=== PATIENT | female | born 1945 | race Hispanic/Latino ===

== ENCOUNTER 2018-07-14 08:10 | Emergency (ER) | payer SELFPAY ==
[2018-07-14 08:48] LABS: Absolute Lymphocytes (CBC) 1.8 K/uL (0.7-4.9); Absolute Monocytes 0.7 K/uL (0.1-1.3); Absolute Neutrophil 3.6 K/uL (1.8-8.0); Basophils % 0.5 % (0-1.3); Eosinophils % 1.1 % (0-4.4); Hematocrit 39.1 % (36.0-45.0); Lymphocytes % 29.3 % (15.3-44.8); MCH 30.6 pg (27.0-35.0); MCV 85.8 fL (80-100); MPV 8.4 fL (7.6-11.3); RBC Red Blood Cell Count 4.56 M/uL (3.86-4.86)
[2018-07-14 08:52] LABS: Protime INR 1.09
--- NOTE | 2018-07-14 08:59 | RAD REPORT ---
EXAM DESCRIPTION: CT - Head Brain Wo Cont - 07/14/2018 8:44 am CLINICAL HISTORY: Left facial droop and numbness COMPARISON: None. TECHNIQUE: Computed axial tomography of the head was obtained. IV contrast was not requested. All CT scans are performed using dose optimization technique as appropriate and may include automated exposure control or mA/KV adjustment according to patient size. FINDINGS: An intracranial bleed is not seen . The ventricles are normal in caliber. No extra-axial fluid collection is noted. Fluid within the sinuses/ mastoids is not seen. IMPRESSION: No acute intracranial abnormality is seen. If patient's symptoms persist MRI of the bra in would be recommended.
[2018-07-14 09:07] LABS: ALT/SGPT 29 U/L (12-78); AST/SGOT 18 U/L (15-37); Albumin 3.8 g/dL (3.4-5.0); Alkaline Phosphatase 67 U/L (45-117); BUN Blood Urea Nitrogen 12 mg/dL (7-18); Bicarbonate 23 mmol/L (21-32); Bilirubin Direct 0.1 mg/dL (0-0.2); Bilirubin Total 0.6 mg/dL (0.2-1.0); Glucose Level 97 mg/dL (74-106); Magnesium 2.3 mg/dL (1.8-2.4); NT PRO-BNP 47 pg/mL (<125); Potassium 3.6 mmol/L (3.5-5.1); Protein, Total 7.5 g/dL (6.4-8.2); Sodium Level 142 mmol/L (136-145); Troponin (Emerg Dept Use Only) < 0.02 ng/mL (0.0-0.045)
[2018-07-14] MEDS ORDERED: LORazepam 2 MG/ML VIAL ONE (09:21)
--- NOTE | 2018-07-14 10:02 | RAD REPORT ---
EXAM DESCRIPTION: Valentín Single View07/14/2018 8:54 am CLINICAL HISTORY: Chest pain COMPARISON: December 2016 FINDINGS: The lungs appear clear of acute infiltrate. The heart is normal size IMPRESSION: No acute abnormalities displayed
--- NOTE | 2018-07-14 11:14 | ER ---
Nurse's Notes [facility] Name: Celina Justice Age: 72 yrs Sex: Female : 1945 Arrival Date: 07/14/2018 Time: 08:11 Bed 6 Private MD: Diagnosis: Chest pain, unspecified Presentation: 07/14 08:12 Presenting complaint: Patient states: L sided chest pain that radiates down L arm that ss began 2 hours ago. Pt also c/o numbness to 2 fingers to L shoulder. Reports intermittent facial drooping x 2-3 months that is not present at this time. Transition of care: patient was not received from another setting of care. Onset of symptoms was July 14, 2018. Risk Assessment: Do you want to hurt yourself or someone else? Patient reports no desire to harm self or others. Initial Sepsis Screen: Does the patient meet any 2 criteria? No. Patient's initial sepsis screen is negative. Does the patient have a suspected source of infection? No. Patient's initial sepsis screen is negative. Care prior to arrival: Pt reports taking Aspirin last night and this morning, unknown dose. 08:12 Method Of Arrival: Ambulatory ss 08:12 Acuity: MARGY 3 ss Triage Assessment: 08:15 General: Appears in no apparent distress. comfortable, Behavior is cooperative, bp appropriate for age, anxious. Historical: - Allergies: 08:32 No Known Allergies; bp - Home Meds: 08:32 Unable to obtain [Active]; bp - PMHx: 08:32 Hyperlipidemia; Hypothyroidism; bp - Immunization history:: Adult Immunizations up to date. - Social history:: Smoking status: Patient/guardian denies using tobacco. - Ebola Screening: : Patient denies exposure to infectious person Patient denies travel to an Ebola-affected area in the 21 days before illness onset. Screenin:32 Abuse screen: Denies threats or abuse. Denies injuries from another. Nutritional bp screening: No deficits noted. Tuberculosis screening: No symptoms or risk factors identified. Fall Risk None identified. Assessment: 08:29 General: Appears in no apparent distress. comfortable, Behavior is cooperative, bp appropriate for age, anxious. Pain: Complains of pain in chest and left arm. Neuro: Level of Consciousness is awake, alert, obeys commands, Oriented to person, place, time, situation, Appropriate for age. Cardiovascular: Rhythm is sinus rhythm. Respiratory: Airway is patent Respiratory effort is even, unlabored, Respiratory pattern is regular, symmetrical. GI: Reports nausea. : No signs and/or symptoms were reported regarding the genitourinary system. EENT: No deficits noted. Derm: No deficits noted. Musculoskeletal: Circulation, motion, and sensation intact. Range of motion: intact in all extremities. 09:30 Reassessment: Patient appears in no apparent distress at this time. Patient and/or hb family updated on plan of care and expected duration. Pain level reassessed. Patient is alert, oriented x 3, equal unlabored respirations, skin warm/dry/pink. 10:30 Reassessment: SECOND CARDIAC MARKERS TO LAB, RESULTS PENDING. VS STABLE ON MONITOR. bp 11:07 Reassessment: Patient appears in no apparent distress at this time. Patient and/or hb family updated on plan of care and expected duration. Pain level reassessed. Patient is alert, oriented x 3, equal unlabored respirations, skin warm/dry/pink. 11:25 Reassessment: PT D/C HOME AMBULATORY WITH FAMILY, DX WITH NONSPECIFIC CHEST PAIN. bp Vital Signs: 08:12 BP 141 / 91; Pulse 84; Resp 18; Temp 98.5; Pulse Ox 99% on R/A; Weight 63.5 kg; Height bp 5 ft. (152.40 cm); Pain 3/10; 09:10 BP 159 / 86; Pulse 81; Resp 17; Pulse Ox 100% ; bp 09:56 BP 113 / 66; Pulse 68; Resp 16; Pulse Ox 97% on 2 lpm NC; bp 10:45 BP 129 / 80; Pulse 67; Resp 15; Pulse Ox 98% on R/A; hb 08:12 Body Mass Index 27.34 (63.50 kg, 152.40 cm) bp ED Course: 08:11 Patient arrived in ED. tw3 08:12 Arm band placed on right wrist. ss 08:13 Jose J Lee, RAY is Primary Nurse. bp 08:15 Jose Carlos Grayson MD is Attending Physician. kdr 08:32 Triage completed. ss 08:32 Patient has correct armband on for positive identification. Bed in low position. Call bp light in reach. Side rails up X2. Adult w/ patient. 08:[address] mw3 08:40 Inserted saline lock: 20 gauge in right antecubital area, using aseptic technique. hb Blood collected. 08:44 CT completed. Patient tolerated procedure well. Patient moved to radiology via mw3 stretcher. 08:44 CT Head Brain wo Cont In Process Unspecified. EDMS 08:52 X-ray completed. Patient tolerated procedure well. tm4 08:53 XRAY Chest (1 view) In Process Unspecified. EDMS 11:21 No provider procedures requiring assistance completed. IV discontinued, intact, hb bleeding controlled, No redness/swelling at site. Pressure dressing applied. Administered Medications: 08:42 Not Given (Physician Discretion; TAKEN AT HOME): Aspirin 81 mg PO once bp 09:19 Drug: Ativan 0.5 mg Route: IVP; Site: right antecubital; bp 09:24 Follow up: Response: Anxiety decreased bp Outcome: 11:14 Discharge ordered by MD. kdr 11:21 Discharged to home ambulatory, with significant other. hb 11:21 Condition: stable 11:21 Discharge instructions given to patient, Instructed on discharge instructions, follow up and referral plans. medication usage, Demonstrated understanding of instructions, follow-up care, medications, Prescriptions given X 1. 11:25 Patient left the ED. bp Signatures: Dispatcher [employer] EDMS Jose Carlos Grayson MD MD [facility] Pamela Alan tm4 Stephanie Silverio RN RN Shira Ponce RN RN hb Louis, Shy tw3 Jose J Lee RN RN bp Debra Gonzales mw3 Corrections: (The following items were deleted from the chart) 08:51 08:12 BP 141 / 91; Pulse 84bpm; Resp 18bpm; Pulse Ox 99% RA; Pain 3/10; bp
--- NOTE | 2018-07-14 11:15 | EDPHYS ---
Physician Documentation [facility] Name: Celina Justice Age: 72 yrs Sex: Female : 1945 Arrival Date: 07/14/2018 Time: 08:11 Bed 6 Private MD: ED Physician Jose Carlos Grayson Historical: - Allergies: 07/14 08:32 No Known Allergies; bp - Home Meds: 08:32 Unable to obtain [Active]; bp - PMHx: 08:32 Hyperlipidemia; Hypothyroidism; bp - Immunization history:: Adult Immunizations up to date. - Social history:: Smoking status: Patient/guardian denies using tobacco. - Ebola Screening: : Patient denies exposure to infectious person Patient denies travel to an Ebola-affected area in the 21 days before illness onset. Vital Signs: 08:12 BP 141 / 91; Pulse 84; Resp 18; Temp 98.5; Pulse Ox 99% on R/A; Weight 63.5 kg; Height bp 5 ft. (152.40 cm); Pain 3/10; 09:10 BP 159 / 86; Pulse 81; Resp 17; Pulse Ox 100% ; bp 09:56 BP 113 / 66; Pulse 68; Resp 16; Pulse Ox 97% on 2 lpm NC; bp 10:45 BP 129 / 80; Pulse 67; Resp 15; Pulse Ox 98% on R/A; hb 08:12 Body Mass Index 27.34 (63.50 kg, 152.40 cm) bp MDM: 11:14 Patient medically screened. kdr 07/14 08:33 Order name: Basic Metabolic Panel; Complete Time: 09:14 kdr 07/14 08:33 Order name: CBC with Diff; Complete Time: 09:14 kdr 07/14 08:33 Order name: LFT's; Complete Time: 09:14 kdr 07/14 08:33 Order name: Magnesium; Complete Time: 09:14 kdr 07/14 08:33 Order name: NT PRO-BNP; Complete Time: 09:14 kdr 07/14 08:33 Order name: PT-INR; Complete Time: 09:14 kdr 07/14 08:33 Order name: Troponin (emerg Dept Use Only); Complete Time: 09:14 kdr 07/14 08:33 Order name: XRAY Chest (1 view); Complete Time: 10:58 kdr 07/14 08:33 Order name: EKG; Complete Time: 08:34 kdr 07/14 08:33 Order name: CT Head Brain wo Cont; Complete Time: 09:14 kdr 07/14 09:16 Order name: Troponin (emerg Dept Use Only): Draw two hours after initial draw; Complete kdr Time: 10:58 07/14 10:48 Order name: Urine Dipstick--Ancillary (enter results) ms 07/14 08:33 Order name: Cardiac monitoring; Complete Time: 08:34 kdr 07/14 08:33 Order name: EKG - Nurse/Tech; Complete Time: 08:34 kdr 07/14 08:33 Order name: IV Saline Lock; Complete Time: 08:47 kdr 07/14 08:33 Order name: Labs collected and sent; Complete Time: 08:47 kdr 07/14 08:33 Order name: O2 Per Protocol; Complete Time: 08:34 kdr 07/14 08:33 Order name: O2 Sat Monitoring; Complete Time: 08:34 kdr Administered Medications: 08:42 Not Given (Physician Discretion; TAKEN AT HOME): Aspirin 81 mg PO once bp 09:19 Drug: Ativan 0.5 mg Route: IVP; Site: right antecubital; bp 09:24 Follow up: Response: Anxiety decreased bp Disposition: 07/14/18 11:14 Discharged to Home. Impression: Chest pain, unspecified. - Condition is Stable. - Discharge Instructions: Nonspecific Chest Pain, [id number]. - Prescriptions for Tramadol 50 mg Oral Tablet - take 1 tablet by ORAL route every 8 hours as needed; 12 tablet. - Medication Reconciliation Form, Thank You Letter form. - Follow up: Private Physician; When: 2 - 3 days; Reason: If symptoms return, Further diagnostic work-up, Recheck today's complaints, Continuance of care, Re-evaluation by your physician. - Problem is new. - Symptoms have improved. Addendum: 07/28/2018 22:58 Addendum: CC: Chest pain that radiates down her left arm HPI: The patient states that k two hours [employer], she began to have chest pain on the left side of her chest that was radiating down her left arm causing two fingers to be numb. She also reports that she has had facial drooping intermittently for the past two months. She denies that it is present at this time. . Addendum: ROS: Const: No fever, chills or weight loss, Eyes: no visual changes or c/o, Neck: no pain or injury, CV: no palpitations - she does report CP that radiates as noted above Resp: no SOB, cough or congestion, Abd: no n/v/d or pain, Back: no pain or injury, : no pain or bleeding, MS/Ext: no pain, injury, swelling, tingling, Skin: no lacerations, pain, injury, skin turgor good, Neuro: CN grossly intact and no other deficits, Psych: Appropriate for age, Allergy/Immunology: no rashes or other s/s, Endo: no evidence of polyuria, polydipsia, temperature control or other s/s . Addendum: Exam: Const: WDWN HF in NAD, Head/Face: no injury, pain or deformity, Eyes: PERRLA, ENT: no pain, injury or bleeding, Neck: no pain, injury or deformity, full ROM, Chest/Axilla: No pain, injury or deformity, CV: no rubs, gallops, murmurs, regular rate, Resp: CTAB, regular rate, Abd/GI: soft, NT, BS present in all quads and normal, Back: no injury or deformity, full ROM, MS/Extremity: no injury or deformity, FROM, distal pulses good and equal, Skin: no rashes, ecchymosis skin turgor good, Neuro: CN grossly intact, no other neuro deficits, Psych: appropriate for age, no SI/HI, no depression . Addendum: MDM (Discharge) All VS and nursing notes reviewed. The patient was counseled on the results and need for follow-up. The patient was discharged in stable condition. They were happy with the care they received and the plan for d/c and follow-up. . Signatures: Dispatcher [employer] EDJose Carlos Astudillo MD MD kdr Smirch, Shelby, RN RN ss Peltier, Brian, RN RN bp Corrections: (The following items were deleted from the chart) 07/14 11:25 11:14 07/14/2018 11:14 Discharged to Home. Impression: Chest pain, unspecified. bp Condition is Stable. Forms are Medication Reconciliation Form, Thank You Letter, Antibiotic Education, Prescription Opioid Use. Follow up: Private Physician; When: 2 - 3 days; Reason: If symptoms return, Further diagnostic work-up, Recheck today's complaints, Continuance of care, Re-evaluation by your physician. Problem is new. Symptoms have improved. kdr
[2018-07-14 11:36] VITALS: TEMP 98.5
[2018-07-14 11:39] VITALS: BP 129/80; O2SAT 98
[2018-07-14 12:02] LABS: Urine Blood TRACE (NEG); Urine Glucose NEGATIVE (NEG); Urine Protein NEGATIVE (NEG); Urine Specific Gravity 1.015 (1.005-1.030); Urine pH 7.5 (5.0-7.0)
--- NOTE | 2018-07-15 17:36 | EKG ---
Test Date: 2018-07-14 Test Time: 08:31:20 [employer] Utility Worker: TORRI MEASUREMENT RESULTS: Intervals: Rate: 78 [place]: 160 QRSD: 78 QT: 362 QTc: 412 [place]: P: 60 [place]: 160 QRS: 31 T: 64 INTERPRETIVE STATEMENTS: Normal sinus rhythm Anterior infarct, age undetermined Abnormal ECG No previous ECG available for comparison Electronically Signed On 07-15-18 17:33:43 CDT by Bhargav Tuttle
== END 2018-07-14 11:25 | disposition home or self-care (01) ==
LOC: ER 08:10
DX: R07.9 Chest pain, unspecified (principal)
CPT/HCPCS: 36415; 70450; 71045; 80048; 80076; 81003; 83735; 83880; 84484; 85025; 85610; 93005; 96374; 99285

== ENCOUNTER 2018-10-17 11:13 | Observation (INO) | payer SELFPAY ==
[2018-10-17] MEDS ORDERED: ASPIRIN 81 MG CHEWABLE TABLET ONE (11:37)
[2018-10-17 11:51] LABS: Absolute Lymphocytes (CBC) 1.3 K/uL (0.7-4.9); Absolute Monocytes 0.5 K/uL (0.1-1.3); Absolute Neutrophil 3.5 K/uL (1.8-8.0); Basophils % 0.7 % (0-1.3); Eosinophils % 2.5 % (0-4.4); Lymphocytes % 23.6 % (15.3-44.8); MPV 9.4 fL (7.6-11.3); Monocytes % 9.6 % (3.3-12.3); RBC Red Blood Cell Count 4.79 M/uL (3.86-4.86)
--- NOTE | 2018-10-17 12:15 | RAD REPORT ---
EXAM DESCRIPTION: Valentín Single View10/17/2018 12:02 pm CLINICAL HISTORY: Chest pain COMPARISON: June 2018 FINDINGS: The lungs appear clear of acute infiltrate. The heart is normal size IMPRESSION: No acute abnormalities displayed
[2018-10-17 12:30] LABS: Protime INR 1.1
[2018-10-17 12:50] LABS: ALT/SGPT 21 U/L (12-78); AST/SGOT 18 U/L (15-37); Albumin 3.5 g/dL (3.4-5.0); Alkaline Phosphatase 66 U/L (45-117); BUN Blood Urea Nitrogen 12 mg/dL (7-18); Bicarbonate 25 mmol/L (21-32); Bilirubin Direct 0.1 mg/dL (0-0.2); Bilirubin Total 0.4 mg/dL (0.2-1.0); Glucose Level 86 mg/dL (74-106); Magnesium 2.2 mg/dL (1.8-2.4); NT PRO-BNP 31 pg/mL (<125); Potassium 3.8 mmol/L (3.5-5.1); Protein, Total 7.1 g/dL (6.4-8.2); Sodium Level 143 mmol/L (136-145); Troponin (Emerg Dept Use Only) < 0.02 ng/mL (0.0-0.045)
--- NOTE | 2018-10-17 13:15 | EDPHYS ---
Physician Documentation [facility] Name: Celina Justice Age: 73 yrs Sex: Female : 1945 Arrival Date: 10/17/2018 Time: 11:14 Bed 20 Private MD: ED Physician Yogesh Campoverde HPI: 10/17 11:28 This 73 yrs old Female presents to ER via Unassigned with complaints of snw Shortness Of Breath, Palpitations. 11:28 The patient has shortness of breath during "episodes" of palpitations. Onset: The snw symptoms/episode began/occurred gradually, 8 day(s) ago. Duration: The symptoms are intermittent, with no pattern. Associated signs and symptoms: Pertinent positives: nausea, Pertinent negatives: swelling. Severity of symptoms: At their worst the symptoms were moderate. The patient has not experienced similar symptoms in the past. sees someone at [facility]. Pt takes medications for Cholesterol and Thyroid disease. Historical: - Allergies: 11:17 No Known Allergies; aa5 - PMHx: 11:17 Hyperlipidemia; Hypothyroidism; aa5 - PSHx: 11:17 ; Hernia repair; aa5 - Immunization history:: Pneumococcal vaccine is up to date, Flu vaccine is not up to date. - Social history:: Smoking status: Patient/guardian denies using tobacco. - Ebola Screening: : No symptoms or risks identified at this time. ROS: 11:27 Constitutional: Negative for fever, chills, and weight loss, Eyes: Negative for injury, snw pain, redness, and discharge, ENT: Negative for injury, pain, and discharge, Neck: Negative for injury, pain, and swelling, Abdomen/GI: Negative for abdominal pain, vomiting, diarrhea, and constipation, positive for nausea Back: Negative for injury and pain, : Negative for injury, bleeding, discharge, and swelling, MS/Extremity: Negative for injury and deformity. 11:27 Cardiovascular: Positive for chest pain, palpitations. 11:27 Respiratory: Positive for shortness of breath. Exam: 11:27 Constitutional: This is a well developed, well nourished patient who is awake, alert, snw and in no acute distress. Head/Face: Normocephalic, atraumatic. Eyes: Pupils equal round and reactive to light, extra-ocular motions intact. Lids and lashes normal. Conjunctiva and sclera are non-icteric and not injected. Cornea within normal limits. Periorbital areas with no swelling, redness, or edema. ENT: Nares patent. No nasal discharge, no septal abnormalities noted. Tympanic membranes are normal and external auditory canals are clear. Oropharynx with no redness, swelling, or masses, exudates, or evidence of obstruction, uvula midline. Mucous membranes moist. Neck: Trachea midline, no thyromegaly or masses palpated, and no cervical lymphadenopathy. Supple, full range of motion without nuchal rigidity, or vertebral point tenderness. No Meningismus. Chest/axilla: Normal chest wall appearance and motion. Nontender with no deformity. No lesions are appreciated. Cardiovascular: Regular rate and rhythm with a normal S1 and S2. No gallops, murmurs, or rubs. Normal PMI, no JVD. No pulse deficits. Respiratory: Lungs have equal breath sounds bilaterally, clear to auscultation and percussion. No rales, rhonchi or wheezes noted. No increased work of breathing, no retractions or nasal flaring. Abdomen/GI: Soft, non-tender, with normal bowel sounds. No distension or tympany. No guarding or rebound. No evidence of tenderness throughout. Back: No spinal tenderness. No costovertebral tenderness. Full range of motion. Skin: Warm, dry with normal turgor. Normal color with no rashes, no lesions, and no evidence of cellulitis. MS/ Extremity: Pulses equal, no cyanosis. Neurovascular intact. Full, normal range of motion. Neuro: Awake and alert, GCS 15, oriented to person, place, time, and situation. Cranial nerves II-XII grossly intact. Motor strength 5/5 in all extremities. Sensory grossly intact. Cerebellar exam normal. Normal gait. Psych: Awake, alert, with orientation to person, place and time. Behavior, mood, and affect are within normal limits. Vital Signs: 11:18 BP 131 / 68; Pulse 75; Resp 18 S; Temp 98.4(O); Pulse Ox 99% on R/A; Pain 0/10; bp 12:00 BP 119 / 61; Pulse 65; Resp 20; Pulse Ox 95% ; bp 13:00 BP 107 / 64; Pulse 61; Resp 23; Temp 97; bp 14:00 BP 122 / 70; Pulse 68; Resp 12; Pulse Ox 99% ; bp 15:00 BP 105 / 61; Pulse 61; Resp 18; Pulse Ox 95% ; bp MDM: 11:30 Patient medically screened. snw 13:14 Data reviewed: vital signs, nurses notes. Data interpreted: Pulse oximetry: on room air snw is 99 %. Interpretation: normal. Counseling: I had a detailed discussion with the patient and/or guardian regarding: the historical points, exam findings, and any diagnostic results supporting the discharge/admit diagnosis, lab results, radiology results, the need for further work-up and treatment in the hospital. Physician consultation: Enrique Pham MD was called at 13:14, was contacted at 13:15, regarding admission, to the telemetry unit. 10/17 11:18 Order name: Basic Metabolic Panel; Complete Time: 13:03 w 10/17 11:18 Order name: CBC with Diff; Complete Time: 12:00 w 10/17 11:18 Order name: LFT's; Complete Time: 13:10/17 11:18 Order name: Magnesium; Complete Time: 13:03 10/17 11:18 Order name: NT PRO-BNP; Complete Time: 13:03 10/17 11:18 Order name: PT-INR; Complete Time: 12:47 10/17 11:18 Order name: Troponin (emerg Dept Use Only); Complete Time: 13:03 w 10/17 11:18 Order name: XRAY Chest (1 view); Complete Time: 12:19 10/17 11:18 Order name: EKG; Complete Time: 11:19 10/17 11:18 Order name: Cardiac monitoring; Complete Time: 11:28 10/17 11:18 Order name: EKG - Nurse/Tech; Complete Time: 11:20 10/17 11:22 Order name: TSH; Complete Time: 13:03 10/17 12:28 Order name: Diet 2 Gm Sodium; Complete Time: 12:28 10/17 11:18 Order name: IV Saline Lock; Complete Time: 11:43 10/17 11:18 Order name: Labs collected and sent; Complete Time: 11:43 10/17 11:18 Order name: O2 Per Protocol; Complete Time: 11: [facility] 10/17 11:18 Order name: O2 Sat Monitoring; Complete Time: : [facility] 10/17 11:53 Order name: Labs - recollect needed; Complete Time: 12:20 bd Administered Medications: 11:29 Drug: Aspirin Chewable Tablet 324 mg Route: PO; bp 11:42 Follow up: Response: No adverse reaction bp Disposition: 16:59 Co-signature as Attending Physician, Yogesh Campoverde MD. rn Disposition: 10/17/18 13:14 Hospitalization ordered by Enrique Pham for Observation. Preliminary diagnosis are Palpitations, Chest pain, unspecified. - Bed requested for Telemetry/MedSurg (observation). - Status is Observation. bp - Condition is Stable. - Problem is new. - Symptoms are unchanged. UTI on Admission? No Signatures: Dispatcher [employer] EDMS Polly Peres bd Kenzie Ritchie, PRESSURE TANK OPERATOR-C PRESSURE TANK OPERATOR-Csnw Yogesh Campoverde MD MD rn Calderon, Audri RN RN aa5 Jose J Lee, RAY RN bp Corrections: (The following items were deleted from the chart) 14:43 13:14 Hospitalization Ordered by Enrique Pham MD for Observation. Preliminary diagnosis bd is Palpitations; Chest pain, unspecified. Bed requested for Telemetry/MedSurg (observation). Status is Observation. Condition is Stable. Problem is new. Symptoms are unchanged. UTI on Admission? No. snw 15:43 14:43 10/17/2018 13:14 Hospitalization Ordered by Enrique Pham MD for Observation. bp Preliminary diagnosis is Palpitations; Chest pain, unspecified. Bed requested for Telemetry/MedSurg (observation). Status is Observation. Condition is Stable. Problem is new. Symptoms are unchanged. UTI on Admission? No. bd
--- NOTE | 2018-10-17 13:15 | ER ---
Nurse's Notes [facility] Name: Celina Justice Age: 73 yrs Sex: Female : 1945 Arrival Date: 10/17/2018 Time: 11:14 Bed 20 Private MD: Diagnosis: Palpitations;Chest pain, unspecified Presentation: 10/17 11:17 Presenting complaint: Patient states: episodic SOB, CP,and palpitations that last a few aa5 minutes x 8 days ago. Pt states "I just lost my mom a few days ago so I don't know if it has anything to do with it". 11:17 Transition of care: patient was not received from another setting of care. Onset of aa5 symptoms was September 2018. Risk Assessment: Do you want to hurt yourself or someone else? Patient reports no desire to harm self or others. Initial Sepsis Screen: Does the patient meet any 2 criteria? No. Patient's initial sepsis screen is negative. Does the patient have a suspected source of infection? No. Patient's initial sepsis screen is negative. Care prior to arrival: None. 11:17 Method Of Arrival: Ambulatory aa5 11:17 Acuity: MARGY 3 aa5 Triage Assessment: 11:20 General: Appears in no apparent distress. comfortable, Behavior is cooperative, bp appropriate for age, anxious. Respiratory: Reports shortness of breath Onset: The symptoms/episode began/occurred 8 DAYS AGO, the patient has mild shortness of breath. Historical: - Allergies: 11:17 No Known Allergies; aa5 - PMHx: 11:17 Hyperlipidemia; Hypothyroidism; aa5 - PSHx: 11:17 ; Hernia repair; aa5 - Immunization history:: Pneumococcal vaccine is up to date, Flu vaccine is not up to date. - Social history:: Smoking status: Patient/guardian denies using tobacco. - Ebola Screening: : No symptoms or risks identified at this time. Screenin:31 Abuse screen: Denies threats or abuse. Denies injuries from another. Nutritional bp screening: No deficits noted. Tuberculosis screening: No symptoms or risk factors identified. Fall Risk None identified. Assessment: 11:29 General: Appears in no apparent distress. comfortable, Behavior is cooperative, bp appropriate for age, anxious. Pain: Complains of pain in chest. Neuro: Level of Consciousness is awake, alert, obeys commands, Oriented to person, place, time, situation, Appropriate for age. Cardiovascular: Rhythm is sinus rhythm. Respiratory: Airway is patent Respiratory effort is even, unlabored, Respiratory pattern is regular, symmetrical, Breath sounds are clear. GI: No signs and/or symptoms were reported involving the gastrointestinal system. : No signs and/or symptoms were reported regarding the genitourinary system. EENT: No deficits noted. Derm: No deficits noted. Musculoskeletal: Circulation, motion, and sensation intact. Range of motion: intact in all extremities. 14:07 Reassessment: PT SEEN BY ADMIT MD, ADMIT IN PROCESS. bp Vital Signs: 11:18 BP 131 / 68; Pulse 75; Resp 18 S; Temp 98.4(O); Pulse Ox 99% on R/A; Pain 0/10; bp 12:00 BP 119 / 61; Pulse 65; Resp 20; Pulse Ox 95% ; bp 13:00 BP 107 / 64; Pulse 61; Resp 23; Temp 97; bp 14:00 BP 122 / 70; Pulse 68; Resp 12; Pulse Ox 99% ; bp 15:00 BP 105 / 61; Pulse 61; Resp 18; Pulse Ox 95% ; bp ED Course: 11:14 Patient arrived in ED. mr 11:17 Jose J Lee, RN is Primary Nurse. bp 11:17 Kenzie Ritchie FNP-C is PHCP. snw 11:17 Arm band placed on Patient placed in an exam room, on a stretcher. aa5 11:18 Yogesh Campoverde MD is Attending Physician. snw 11:26 EKG done, by technical systems architect. reviewed by Yogesh Campoverde MD. dt2 11:29 Triage completed. aa5 11:31 Patient has correct armband on for positive identification. Placed in gown. Bed in low bp position. Call light in reach. Side rails up X2. Adult w/ patient. 11:42 Initial lab(s) drawn, by me, sent to lab. Inserted saline lock: 22 gauge in right mh5 forearm, using aseptic technique. Blood collected. IV discontinued, Pressure dressing applied. 11:43 Inserted saline lock: 22 gauge in right wrist, using aseptic technique. Blood collected.bp 11:44 Basic Metabolic Panel Sent. 5 11:44 TSH Sent. 5 11:44 CBC with Diff Sent. mh5 11:44 LFT's Sent. [facility] 11:44 Magnesium Sent. 5 11:44 NT PRO-BNP Sent. [facility] 11:44 PT-INR Sent. [facility] 11:44 Troponin (emerg Dept Use Only) Sent. [facility] 12:01 X-ray completed. Portable x-ray completed in exam room. Patient tolerated procedure ls3 well. 12:03 XRAY Chest (1 view) In Process Unspecified. EDMS 13:13 Enrique Pham MD is Hospitalizing Provider. snw 15:32 No provider procedures requiring assistance completed. Patient admitted, IV remains in bp place. Administered Medications: 11:29 Drug: Aspirin Chewable Tablet 324 mg Route: PO; bp 11:42 Follow up: Response: No adverse reaction bp Outcome: 13:14 Decision to Hospitalize by Provider. snw 15:32 Admitted to Tele accompanied by tech, family with patient, via wheelchair, room 232, bp with chart, Report called to JASMIN BELL 15:32 Condition: stable 15:32 Instructed on the need for admit. 15:43 Patient left the ED. bp Signatures: Dispatcher [employer] EDMS Kenzie Ritchie, FIRE CAPTAIN MARINE-C FIRE CAPTAIN MARINE-Csnw Janie Leahy RuizConcepcion epperson, RN RN mago5 Theresa Roe 5 Jose J Lee, RN RN Naima Joseph dt2 Jose Sanford ls3 Corrections: (The following items were deleted from the chart) 11:35 11:18 BP 131 / 68; Pulse 75bpm; Resp 18bpm; Spontaneous; Pulse Ox 99% RA; Pain 0/10; aa5bp 15:33 11:42 Inserted saline lock: 22 gauge in right forearm, using aseptic technique. Blood bp collected. Patient did not have IV access during this emergency room visit. IV discontinued, Pressure dressing applied, [facility]
[2018-10-17] MEDS ORDERED: ONDANSETRON 4 MG/2 ML VIAL IV PRN (14:10)
[2018-10-17] MEDS ORDERED: ACETAMINOPHEN 500 MG TAB PO PRN (14:10)
[2018-10-17] MEDS: CARVEDILOL 6.25 MG TAB PO SCH ×2 (16:10→20:47)
[2018-10-17 16:26] VITALS: BMI 22.2
[2018-10-17] MEDS ORDERED: INFLUENZA VACCINE (for 3y+) 0.5 ML DOSE IMVAC ONE (17:00)
[2018-10-17] MEDS ORDERED: PNEUMOCOCCAL VACCINE 0.5 ML IMVAC ONE (17:00)
[2018-10-17] MEDS: ENOXAPARIN 40 MG/0.4 ML SQ SCH (17:48)
[2018-10-17] MEDS: NA CHLORIDE 0.9% 1,000 ML IV SCH (17:49)
--- NOTE | 2018-10-17 19:46 | EKG ---
Test Date: 2018-10-17 Test Time: 11:19:16 Bookkeeper: DIONICIO MEASUREMENT RESULTS: Intervals: Rate: 70 WI: 152 QRSD: 76 QT: 384 QTc: 414 [place]: P: 56 WI: 152 QRS: -20 T: 59 INTERPRETIVE STATEMENTS: Normal sinus rhythm Anterior infarct, age undetermined Abnormal ECG Compared to ECG 07/14/2018 08:31:20 No significant changes Electronically Signed On 10-17-18 19:45:34 DREDGE PIPE INSTALLER by Bhargav Tuttle
[2018-10-17] MEDS ORDERED: POTASSIUM CL SA 10 MEQ TAB PO ONE (21:00)
--- NOTE | 2018-10-17 22:07 | HP ---
Date of Admission: 10/17/2018 Primary Care Physician: At [facility]. Lay Out Machine Operator: Dr. Tuttle with Cardiology. Chief Complaint: Palpitations, chest pain. Code status: Full History Of Present Illness: The patient is a 73-year-old female with past medical history of hyperlipidemia and hypothyroidism, who has been having recurrent episodes of palpitations associated with shortness of breath, dizziness, nausea, and chest pain, which have become more frequent in the past couple of days. The patient's palpitations are worsened with caffeine. Otherwise, no alleviating factors. The patient's symptoms are constant, moderate, progressively worsening. The patient did go to her primary care physician today as she noticed some palpitations, chest pain, and had some numbness on her tongue. She was evaluated for stroke, which was negative, and then was recommended to go to the ER. In the ER, her workup was negative. Her vital signs were stable. Labs were normal. Initial cardiac enzymes and EKG did not show any acute changes. No arrhythmias were picked up on telemetry. However, given the patient has poor followup and due to her age, she was considered not safe for discharge. She lives by herself, was admitted to the hospital for evaluation of her palpitations and to rule out acute coronary syndrome. When seen in the ER, she was awake, alert, oriented x3, in some mild distress, elderly female. Past Medical History: Hyperlipidemia, hypothyroidism. Past Surgical History: x4, hernia repair. Social History: The patient denies any alcohol use, tobacco use, or illicit drug use. Lives by herself, but does have family that comes around to visit her. Allergies: NO KNOWN DRUG ALLERGIES. Medications: List reviewed. Family History: The patient states that her brother had open heart surgery, and diabetes also runs in the family. Review of Systems: An 11-point system reviewed and negative except as per HPI. Physical Examination: Vital Signs: Blood pressure 131/68, pulse 75, respirations 18, O2 of 99% on room air, and temperature 98.4. HEENT: Normocephalic and atraumatic. PERRLA. EOMI. Moist mucous membranes. Oropharynx is clear. Conjunctivae are anicteric. Neck: Supple. No JVD. Trachea midline. CV: S1, S2. Regular rate and rhythm. Peripheral pulses present. Respiratory: Moving air well bilaterally. No wheezing or stridor. No use of accessory muscles. Gastrointestinal: Abdomen is soft, nontender, nondistended. Positive bowel sounds. No guarding or rigidity. No masses. No hepatosplenomegaly. Extremities: No clubbing, cyanosis, or edema. No calf tenderness. Neurologic: Cranial nerves 2 through 12 intact grossly. No focal neurological deficit. Speech is normal. Skin: No rashes. Normal skin turgor. Laboratory Data: Sodium 143, potassium 3.8, chloride 110, CO2 of 25, BUN 12, creatinine 0.54, glucose 86, calcium 8.8, and magnesium 2.2. Troponin less than 0.02. Albumin 3.5. TSH 1.36. INR 1.10. WBC 5.5, H and H 13.7 and 41, platelets 300, and neutrophils 63%. Chest x-ray, personally reviewed, shows no acute abnormalities. EKG: Normal sinus rhythm. Anterior infarct, age indeterminate. No acute ST-T wave changes. Assessment And Plan: A 73-year-old female with; 1. Chest pain, rule out acute coronary syndrome. 2. Palpitations, may be related to caffeine. We will start on beta-blockers. We will obtain echocardiogram and consult Cardiology. 3. Hyperlipidemia. We will continue on statin. 4. Hypothyroidism. TSH is normal. Plan: Admit the patient to Med-Surg. Place as observation. We will address gastrointestinal and deep venous thrombosis prophylaxis with Lovenox. /VERA Voice ID: [id number] MTDD
[2018-10-17 22:36] LABS: Urine Appearance CLEAR; Urine Bilirubin NEGATIVE (NEG); Urine Blood NEGATIVE (NEG); Urine Color YELLOW; Urine Glucose NEGATIVE (NEG); Urine Protein NEGATIVE (NEG); Urine Urobilinogen 0.2 mg/dL (0.2-1.0); Urine pH 6.5 (5.0-7.0)
[2018-10-17 23:24] LABS: Urine Bacteria <20 /HPF (<20); Urine Culture Reflex Order NOT NEEDED; Urine RBC <5 /HPF (NONE SEEN)
[2018-10-18] MEDS: NA CHLORIDE 0.9% 1,000 ML IV SCH (00:54)
--- NOTE | 2018-10-18 05:44 | CON ---
Date of Consultation: 10/17/2018 Reason For Consultation: Shortness of breath and palpitations and atypical chest pain for 8 days. History Of Present Illness: Ms. Justice is a 73-year-old woman, has really no previou s past medical history. She does not take any medications. Has been told she had dyslipidemia, hypo thyroidism in the past. No previous cardiac history. Came in mostly with palpitation and sharp stab jennifer chest pain with exertion. Also dyspnea on exertion. Denied PND, orthopnea, pedal edema, or syn cope. Workup so far has been negative. Past Medical History: Includes dyslipidemia and hypothyroidism. Allergies: NONE. Medications: None. Review of Systems: Negative. Social History: Negative. Family History: Negative. Physical Examination: Vital Signs: Stable. Sinus rhythm. HEENT: Negative. Neck: Supple. No bruit. Chest: Clear. Cardiac: Revealed regular rhythm and rate. No murmurs, gallops, or rubs. Abdomen: Benign. Extremities: Revealed no clubbing, cyanosis, or edema. Diagnostic Data: All within normal limits. Impression And Plan: The patient has dyspnea on exertion, palpitation, atypical chest pain. She is 73, has a history of dyslipidemia. I think an echocardiogram and a pharmacological stress test are i ndicated to rule out coronary artery disease and congestive heart failure. We will see what that elieser ws prior to making final decisions. JULIO CESAR/VERA Voice ID: [id number] Report ID: [id number]
[2018-10-18 06:33] LABS: Absolute Lymphocytes (CBC) 1.5 K/uL (0.7-4.9); Absolute Monocytes 0.6 K/uL (0.1-1.3); Absolute Neutrophil 3.1 K/uL (1.8-8.0); Basophils % 0.5 % (0-1.3); Hematocrit 37.6 % (36.0-45.0); Lymphocytes % 28.5 % (15.3-44.8); MPV 9.3 fL (7.6-11.3); Monocytes % 11.4 % (3.3-12.3); RBC Red Blood Cell Count 4.34 M/uL (3.86-4.86)
[2018-10-18 06:40] LABS: ALT/SGPT 19 U/L (12-78); AST/SGOT 16 U/L (15-37); Alkaline Phosphatase 57 U/L (45-117); BUN Blood Urea Nitrogen 13 mg/dL (7-18); Bicarbonate 25 mmol/L (21-32); Bilirubin Total 0.3 mg/dL (0.2-1.0); Glucose Level 89 mg/dL (74-106); Magnesium 2.2 mg/dL (1.8-2.4); Phosphorus 3.3 mg/dL (2.5-4.9); Potassium 4.4 mmol/L (3.5-5.1); Protein, Total 6.2 g/dL (6.4-8.2); Sodium Level 144 mmol/L (136-145)
[2018-10-18] MEDS ORDERED: REGADENOSON 0.4 MG/5 ML SYR IV ONE (08:04)
[2018-10-18] MEDS: CARVEDILOL 6.25 MG TAB PO SCH ×2 (08:59→10:43)
[2018-10-18] MEDS: ENOXAPARIN 40 MG/0.4 ML SQ SCH (08:59)
[2018-10-18] MEDS: RANITIDINE 150 MG TABLET PO SCH ×2 (09:00→10:42)
--- NOTE | 2018-10-18 10:22 | RAD REPORT ---
EXAM DESCRIPTION: NM - Rest Stress Cardiac Imaging - 10/18/2018 10:15 am CLINICAL HISTORY: CP Chest pain. COMPARISON: No comparisons TECHNIQUE: The patient was administered approximately 10mCi of Tc 99m Sestamibi prior to resting SPE CT imaging of the heart. The patient was then administered approximately 30 mCi of Tc 99m Sestamibi f ollowing exercise or pharmacologic stress. Multiplanar SPECT images were reviewed. FINDINGS: No stress induced ischemic defect is seen to suggest stress induced ischemia. No fixed def ect is seen to suggest hibernating myocardium or scarred myocardium. The end diastolic volume is 51 ml, the end systolic volume is 10 ml, and the ejection fraction is 81 %. IMPRESSION: No stress induced ischemia.
[2018-10-18 10:59] VITALS: O2SAT 95
--- NOTE | 2018-10-18 11:41 | ECHO ---
HEIGHT: 4 ft 11 in WEIGHT: 110 lb 0 oz DATE OF STUDY: 10/18/[address]: Enrique Pham MD 2-DIMENSIONAL: YES M.MODE: YES DOPPLER: YES COLOR FLOW: YES TDS: NO PORTABLE: NO DEFINITY: NO BUBBLE STUDY: NO DIAGNOSIS: CHEST PAIN CARDIAC HISTORY: CATHERIZATION: NO SURGERY: NO PROSTHETIC VALVE: NO PACEMAKER: NO MEASUREMENTS (cm) DIASTOLIC (NORMALS) SYSTOLIC (NORMALS) IVSd 0.9 (0.6-1.2) LA Diam 2.7 (1.9-4.0) LVEF 76% LVIDd 3.9 (3.5-5.7) LVIDs 2.2 (2.0-3.5) %FS 44% LVPWd 0.9 (0.6-1.2) Ao Diam 2.3 (2.0-3.7) 2 DIMENSIONAL ASSESSMENT: RIGHT ATRIUM: NORMAL LEFT ATRIUM: NORMAL RIGHT VENTRICLE: NORMAL LEFT VENTRICLE: NORMAL TRICUSPID VALVE: NORMAL MITRAL VALVE: NORMAL PULMONIC VALVE: NORMAL AORTIC VALVE: NORMAL PERICARDIAL EFFUSION: NONE AORTIC ROOT: NORMAL LEFT VENTRICULAR WALL MOTION: NORMAL DOPPLER/COLOR FLOW: NORMAL COMMENTS: NORMAL 2D ECHOCARDIOGRAM WITH DOPPLER. NO WALL MOTION ABNORMALITY. NO EFFUSION. TECHNOLOGIST: Colleen BLAIR
--- NOTE | 2018-10-18 11:47 | TREADPHA ---
DX: CHEST PAIN Date of Study: 10/18/2018 Ht: 4 11 Wt: 110 lb 0 oz Consulting Physician: SHAHZAD MEDICATIONS: TYLENOL, COREG, LOVENOX, ZOFRAN HISTORY: PHYSICIAL EXAMINATION: RESTING B.P.: 116/59 RESTING H.R.: 62 RESTING EKG: NORMAL PROTOCOL: LEXISCAN EXERCISE TIME: 3:30 B.P. AT PEAK STRESS: 105/58 IMPRESSION: LEXISCAN INJECTED. CARDIOLITE INJECTED PER PROTOCOL. SEE NUCLEAR MEDICINE REPORT. DENIES CHEST PAIN. NO SUPRAVENTRICULAR TACHYCARDIA. NO VENTRICULAR TACHYCARDIA. NO PREMATURE ATRIAL COMPLEXES. NO PREMATURE VENTRICULAR COMPLEXES.
[2018-10-18 13:30] VITALS: BP 112/54; TEMP 98.6
[2018-10-18] MEDS ORDERED: ATORVASTATIN 10 MG TAB PO SCH (21:00)
[2018-10-19] MEDS ORDERED: LEVOTHYROXINE SOD 0.088 MG TAB PO SCH (06:00)
--- NOTE | 2018-10-19 11:05 | PN ---
Date of Progress Note: 10/18/2018 Ms. Justice was admitted on 10/17/2018 and seen on 10/17/2017 because of shortness of breath and palp itations for 8 days. Echocardiogram which was done today was normal. The Lexiscan which was done to day was normal. I think Ms. Justice can go home. I suggest a low-dose beta-nabila because of her p alpitations. We will see her in the office as an outpatient. She can go home today. JULIO CESAR/VERA Voice ID: [id number] Report ID: [id number]
--- NOTE | 2018-10-19 12:32 | DS ---
Date of Discharge: 10/18/2018 Consultants: Dr. Tuttle with Cardiology. Procedures: Nuclear stress test on 10/18/2018, with no stress-induced ischemia. Discharge Diagnoses: 1.Chest pain, acute coronary syndrome ruled out. 2.Palpitations, improved. 3.Hyperlipidemia, on statin. 4.Hypothyroidism. Hospital Course: The patient is a 73-year-old female with past medical history of hyperlipidemia, hy pothyroidism, who comes in with palpitations, shortness of breath, nausea, chest pain, and dizziness. The patient reports those symptoms are worse with palpitations or worse with caffeine. She does beckman ve risk factors, and therefore, she was admitted to the hospital for further workup. She was seen by Cardiology. Echocardiogram was done, which was normal. Her EF was 76%. Cardiac stress test was or dered by Dr. Tuttle did not show any stress-induced ischemia. The patient's symptoms improved. She was counseled against drinking caffeine. She was placed on beta blockers, which helped her palpitat ions. The patient overall did well. She was then cleared for discharge and was sent home in stable condition. Activity: As tolerated. Medications: As per medication reconciliation list. Followup: Follow up with primary care physician in 2 to 3 days. Follow up with lead atg developer, Dr. Artemio rucker, in 2 weeks. Diet: Heart-healthy. Physical Examination: General: Awake, alert, oriented x3, no acute distress. CV: S1, S2. No murmurs. Respiratory: Moving air well bilaterally. No wheezing. Gastrointestinal: Abdomen is soft, nontender, nondistended. Positive bowel sounds. Extremities: No clubbing, cyanosis, or edema. Neuro: Nonfocal. SA/MODL Voice ID: [id number] Report ID: [id number]
== END 2018-10-18 14:04 | disposition home or self-care (01) ==
LOC: ER 11:13 → ERHOLD 14:09 → 2ND 15:32
PROVIDERS: ADMIT Family Medicine; ATTEND Family Medicine
DX: R07.9 Chest pain, unspecified (principal); R00.2 Palpitations; E78.5 Hyperlipidemia, unspecified; E03.9 Hypothyroidism, unspecified
CPT/HCPCS: 36415; 71045; 78452; 80048; 80053; 80076; 81001; 83735; 83880; 84100; 84443; 84484; 85025; 85610; 93005; 93017; 93306; 94760; 97162; 99285; A9500; G0378; J1650; J2405; J2785; J7030

== ENCOUNTER → 2023-10-03 | Emergency (ER) | payer SELFPAY ==
[~2023-10-03] MED LIST: CIPROFLOXACIN 400mg IV 400 MG/200 ML BAG IV ONE; METRONIDAZOLE 500mg IVPB 500 MG/100 ML BAG IV ONE
--- OUTSIDE RECORDS SUMMARY | 2023-10-03 17:24 | XMS REPORT | Continuity of Care Document ---
Author Name Unknown Address [address] [facility] [address] [place] [address] [facility] [address] [facility] [address] [place] [address] Care Team Providers Care Diaper Folder Name Role Phone Lashae Grant Primary Care Physician Medications Ordered Medication Name Filled Medication Name Start Date Stop Date Current Medication? Ordering Clinician Indication Dosage Frequency Signature (SIG) Comments Components Source Dose Unknown 2-0 8-02 00:00: 00 No Dose Unknown 2022-0 8-02 00:00: 00 No Dose Unknown 2022-0 8-02 00:00: 00 No Dose Unknown 2022-0 7-15 00:00: 00 No Dose Unknown 2022-0 7-15 00:00: 00 No Dose Unknown 2022-0 7-15 00:00: 00 No Dose Unknown 2022-0 7-11 00:00: 00 No Dose Unknown 2022-0 7-11 00:00: 00 No Dose Unknown 2022-0 7-11 00:00: 00 No levothyroxi ne 75 mcg tablet 2-0 6-17 00:00: 00 No 1mcg Dose Unknown 2022-0 6-17 00:00: 00 No Dose Unknown 2022-0 6-17 00:00: 00 No Dose Unknown 2022-0 6-17 00:00: 00 No Dose Unknown 2022-0 6-17 00:00: 00 No Dose Unknown 2022-0 6-17 00:00: 00 No levothyroxi ne 75 mcg tablet 2-0 6-17 00:00: 00 No 1mcg Dose Unknown 2022-0 6-17 00:00: 00 No Dose Unknown 2022-0 6-17 00:00: 00 No Dose Unknown 2022-0 6-17 00:00: 00 No Dose Unknown 0 6-17 00:00: 00 No Dose Unknown 0 617 00:00: 00 No levothyroxi ne 75 mcg tablet 0 617 00:00: 00 No 1mcg Dose Unknown 0 6 00:00: 00 No Dose Unknown 0 6 00:00: 00 No Dose Unknown 0 6 00:00: 00 No Dose Unknown 0 03-11 00:00: 00 No Dose Unknown 0 03-11 00:00: 00 No levothyroxi ne 75 mcg tablet 0 1- 00:00: 00 No 1mcg levothyroxi ne 75 mcg tablet 0 1- 00:00: 00 No 1mcg levothyroxi ne 75 mcg tablet 0 1- 00:00: 00 No 1mcg Dose Unknown 2020-09 2-16 00:00: 00 No atorvastati n 20 mg tablet 2020-09 2-16 00:00: 00 No 1mg Dose Unknown 2020-09 2-16 00:00: 00 No atorvastati n 20 mg tablet 1 2-16 00:00: 00 No 1mg propranolol 10 mg tablet 1 2-16 00:00: 00 No 1mg atorvastati n 20 mg tablet 1 2-16 00:00: 00 No 1mg levothyroxi ne 75 mcg tablet 1 0-21 00:00: 00 No 1mcg levothyroxi ne 75 mcg tablet 1 0-21 00:00: 00 No 1mcg levothyroxi ne 75 mcg tablet 1 0-21 00:00: 00 No 1mcg atorvastati n 80 mg tablet 0 7- 00:00: 00 No 1mg levothyroxi ne 75 mcg tablet 0 - 00:00: 00 No 1mcg atorvastati n 80 mg tablet 0 04-22 00:00: 00 No 1mg levothyroxi ne 75 mcg tablet 0 04-22 00:00: 00 No 1mcg atorvastati n 80 mg tablet 04-22 00:00: 00 No 1mg levothyroxi ne 75 mcg tablet 04-22 00:00: 00 No 1mcg Dose Unknown 04-16 00:00: 00 No lovastatin 20 mg tablet 04-16 00:00: 00 No 1mg levothyroxi ne 88 mcg tablet 04-16 00:00: 00 No 1mcg propranolol 10 mg tablet 04-16 00:00: 00 No 1mg lovastatin 20 mg tablet 04-16 00:00: 00 No 1mg levothyroxi ne 88 mcg tablet 04-16 00:00: 00 No 1mcg Dose Unknown 04-16 00:00: 00 No lovastatin 20 mg tablet 04-16 00:00: 00 No 1mg levothyroxi ne 88 mcg tablet 04-16 00:00: 00 No 1mcg lovastatin 20 mg tablet 02-08 00:00: 00 No 1mg lovastatin 20 mg tablet 02-08 00:00: 00 No 1mg lovastatin 20 mg tablet 02-08 00:00: 00 No 1mg Dose Unknown 02-05 00:00: 00 No Protonix 40 mg tablet,salvador yed release 02-05 00:00: 00 No 1mg Dose Unknown 02-05 00:00: 00 No levothyroxi ne 88 mcg tablet 01-06 00:00: 00 No 1mcg levothyroxi ne 88 mcg tablet 01-06 00:00: 00 No 1mcg levothyroxi ne 88 mcg tablet 01-06 00:00: 00 No 1mcg Macrobid 100 mg capsule 01-05 00:00: 00 No 1mg Macrobid 100 mg capsule 01-05 00:00: 00 No 1mg Macrobid 100 mg capsule 01-05 00:00: 00 No 1mg levothyroxi ne 88 mcg tablet 2-04 00:00: 00 No 1mcg levothyroxi ne 88 mcg tablet 10-29 00:00: 00 No 1mcg levothyroxi ne 88 mcg tablet 10-29 00:00: 00 No 1mcg propranolol 10 mg tablet 09-28 00:00: 00 No 1mg lovastatin 20 mg tablet 09-28 00:00: 00 No 1mg levothyroxi ne 100 mcg tablet 09-28 00:00: 00 No 1mcg propranolol 10 mg tablet 09-28 00:00: 00 No 1mg lovastatin 20 mg tablet 09-28 00:00: 00 No 1mg levothyroxi ne 100 mcg tablet 09-28 00:00: 00 No 1mcg propranolol 10 mg tablet 09-28 00:00: 00 No 1mg lovastatin 20 mg tablet 09-28 00:00: 00 No 1mg levothyroxi ne 100 mcg tablet 09-28 00:00: 00 No 1mcg loratadine 10 mg tablet 2019-09 0-05 00:00: 00 No 1mg Flonase Allergy Relief 50 mcg/actuati on nasal spray,suspe nsion 2019-09 0-05 00:00: 00 No 1mcg/ac tuation loratadine 10 mg tablet 2019-09 0-05 00:00: 00 No 1mg Flonase Allergy Relief 50 mcg/actuati on nasal spray,suspe nsion 2019-09 0-05 00:00: 00 No 1mcg/ac tuation loratadine 10 mg tablet 2019-09 0-05 00:00: 00 No 1mg Flonase Allergy Relief 50 mcg/actuati on nasal spray,suspe nsion 2019-09 0-05 00:00: 00 No 1mcg/ac tuation amoxicillin 500 mg tablet 06-11 00:00: 00 No 1mg amoxicillin 500 mg tablet 06-11 00:00: 00 No 1mg amoxicillin 500 mg tablet 06-11 00:00: 00 No 1mg metoprolol tartrate 25 mg tablet 06-10 00:00: 00 No 1mg lovastatin 20 mg tablet 06-10 00:00: 00 No 1mg levothyroxi ne 100 mcg tablet 0 16 00:00: 00 No 1mcg metoprolol tartrate 25 mg tablet 16 00:00: 00 No 1mg lovastatin 20 mg tablet 06-10 00:00: 00 No 1mg levothyroxi ne 100 mcg tablet 06-10 00:00: 00 No 1mcg metoprolol tartrate 25 mg tablet 06-10 00:00: 00 No 1mg lovastatin 20 mg tablet 06-10 00:00: 00 No 1mg levothyroxi ne 100 mcg tablet 06-10 00:00: 00 No 1mcg metoprolol tartrate 25 mg tablet 03-05 00:00: 00 No 1mg lovastatin 20 mg tablet 03-05 00:00: 00 No 1mg metoprolol tartrate 25 mg tablet 03-05 00:00: 00 No 1mg lovastatin 20 mg tablet - 00:00: 00 No 1mg levothyroxi ne 100 mcg tablet 0 03-05 00:00: 00 No 1mcg levothyroxi ne 100 mcg tablet 03-05 00:00: 00 No 1mcg metoprolol tartrate 25 mg tablet - 00:00: 00 No 1mg lovastatin 20 mg tablet 03-05 00:00: 00 No 1mg levothyroxi ne 100 mcg tablet 0 - 00:00: 00 No 1mcg metoprolol tartrate 25 mg tablet 0 - 00:00: 00 No 1mg loratadine 10 mg tablet 0 - 00:00: 00 No 1mg levothyroxi ne 100 mcg tablet - 00:00: 00 No 1mcg metoprolol tartrate 25 mg tablet - 00:00: 00 No 1mg loratadine 10 mg tablet - 00:00: 00 No 1mg levothyroxi ne 100 mcg tablet - 00:00: 00 No 1mcg metoprolol tartrate 25 mg tablet 0 - 00:00: 00 No 1mg loratadine 10 mg tablet 12-03 00:00: 00 No 1mg levothyroxi ne 100 mcg tablet 12-03 00:00: 00 No 1mcg buspirone 10 mg tablet 10-15 00:00: 00 No 1mg lovastatin 20 mg tablet 10-15 00:00: 00 No 1mg buspirone 10 mg tablet 10-15 00:00: 00 No 1mg lovastatin 20 mg tablet 10-15 00:00: 00 No 1mg buspirone 10 mg tablet 10-15 00:00: 00 No 1mg lovastatin 20 mg tablet 10-15 00:00: 00 No 1mg metoprolol tartrate 25 mg tablet 2018-09 00:00: 00 No 1mg levothyroxi ne 100 mcg tablet 2018-09 00:00: 00 No 1mcg metoprolol tartrate 25 mg tablet 2018-09 00:00: 00 No 1mg levothyroxi ne 100 mcg tablet 2018-09 00:00: 00 No 1mcg metoprolol tartrate 25 mg tablet 2018-09 00:00: 00 No 1mg levothyroxi ne 100 mcg tablet 2018-09 00:00: 00 No 1mcg levothyroxi ne 100 mcg tablet 05-10 00:00: 00 No 1mcg levothyroxi ne 100 mcg tablet 05-10 00:00: 00 No 1mcg levothyroxi ne 100 mcg tablet 05-10 00:00: 00 No 1mcg metoprolol tartrate 25 mg tablet 03-15 00:00: 00 No 51mg metoprolol tartrate 25 mg tablet 03-15 00:00: 00 No 51mg metoprolol tartrate 25 mg tablet 03-15 00:00: 00 No 51mg levothyroxi ne 100 mcg tablet 01-25 00:00: 00 No 1mcg levothyroxi ne 100 mcg tablet 01-25 00:00: 00 No 1mcg levothyroxi ne 100 mcg tablet 01-25 00:00: 00 No 1mcg levothyroxi ne 100 mcg tablet 12-22 00:00: 00 No 1mcg levothyroxi ne 100 mcg tablet 12-22 00:00: 00 No 1mcg levothyroxi ne 100 mcg tablet 12-22 00:00: 00 No 1mcg lovastatin 20 mg tablet 12-20 00:00: 00 No 1mg lovastatin 20 mg tablet 12-20 00:00: 00 No 1mg lovastatin 20 mg tablet 12-20 00:00: 00 No 1mg omeprazole 20 mg capsule,del ayed release 11-05 00:00: 00 No 1mg omeprazole 20 mg capsule,del ayed release 11-05 00:00: 00 No 1mg omeprazole 20 mg capsule,del ayed release 11-05 00:00: 00 No 1mg lovastatin 20 mg tablet 2017-09 00:00: 00 No 1mg levothyroxi ne 88 mcg tablet 2017-09 00:00: 00 No 1mcg lovastatin 20 mg tablet 2017-09 00:00: 00 No 1mg levothyroxi ne 88 mcg tablet 2017-09 00:00: 00 No 1mcg lovastatin 20 mg tablet 2017-09 00:00: 00 No 1mg levothyroxi ne 88 mcg tablet 2017-09 00:00: 00 No 1mcg lovastatin 20 mg tablet 01-31 00:00: 00 No 1mg levothyroxi ne 88 mcg tablet 01-31 00:00: 00 No 1mcg lovastatin 20 mg tablet 01-31 00:00: 00 No 1mg levothyroxi ne 88 mcg tablet 01-31 00:00: 00 No 1mcg lovastatin 20 mg tablet 01-31 00:00: 00 No 1mg levothyroxi ne 88 mcg tablet 01-31 00:00: 00 No 1mcg pravastatin 20 mg tablet 12-23 00:00: 00 No 1mg Medrol (Marshal) 4 mg tablets in a dose pack 12-23 00:00: 00 No 1mg levothyroxi ne 88 mcg tablet 12-23 00:00: 00 No 1mcg pravastatin 20 mg tablet 12-23 00:00: 00 No 1mg Medrol (Marshal) 4 mg tablets in a dose pack 12-23 00:00: 00 No 1mg pravastatin 20 mg tablet 12-23 00:00: 00 No 1mg Medrol (Marshal) 4 mg tablets in a dose pack 12-23 00:00: 00 No 1mg levothyroxi ne 88 mcg tablet 12-23 00:00: 00 No 1mcg levothyroxi ne 88 mcg tablet 12-23 00:00: 00 No 1mcg Vital Signs Vital Name Observation Time Observation Value Comments S ource BP Systolic 2022-09-12 12:04:00 150 mm[Hg] BP Diastolic 2022-09-12 12:04:00 66 mm[Hg] Weight Measured 2022-09-12 12:04:00 109.80 pounds Height Measured 2022-09-12 12:04:00 53.00 inches Body Temperature 2022-09-12 12:04:00 97.30 degrees Heart Rate 2022-09-12 12:04:00 76.00 /min Respiratory Rate 2022-09-12 12:04:00 18.00 /min BP Systolic 2022-07-08 08:07:00 125 mm[Hg] BP Diastolic 2022-07-08 08:07:00 73 mm[Hg] Weight Measured 2022-07-08 08:07:00 110.60 pounds Height Measured 2022-07-08 08:07:00 53.00 inches Body Temperature 2022-07-08 08:07:00 98.30 degrees Heart Rate 2022-07-08 08:07:00 61.00 /min Respiratory Rate 2022-07-08 08:07:00 18.00 /min BP Systolic 2022-04-26 09:30:00 151 mm[Hg] BP Diastolic 2022-04-26 09:30:00 71 mm[Hg] Weight Measured 2022-04-26 09:30:00 110.20 pounds Height Measured 2022-04-26 09:30:00 53.00 inches Body Temperature 2022-04-26 09:30:00 98.30 degrees Heart Rate 2022-04-26 09:30:00 67.00 /min Respiratory Rate 2022-04-26 09:30:00 18.00 /min BP Systolic 2022-03-11 10:27:00 131 mm[Hg] BP Diastolic 2022-03-11 10:27:00 57 mm[Hg] Weight Measured 2022-03-11 10:27:00 110.20 pounds Height Measured 2022-03-11 10:27:00 53.00 inches Body Temperature 2022-03-11 10:27:00 98.40 degrees Heart Rate 2022-03-11 10:27:00 77.00 /min Respiratory Rate 2022-03-11 10:27:00 16.00 /min BP Systolic 2021-09-09 09:14:00 126 mm[Hg] BP Diastolic 2021-09-09 09:14:00 68 mm[Hg] Weight Measured 2021-09-09 09:14:00 107.80 pounds Height Measured 2021-09-09 09:14:00 53.00 inches Body Temperature 2021-09-09 09:14:00 97.30 degrees Heart Rate 2021-09-09 09:14:00 80.00 /min Respiratory Rate 2021-09-09 09:14:00 BP Systolic 2021-07-15 10:39:00 109 mm[Hg] BP Diastolic 2021-07-15 10:39:00 65 mm[Hg] Weight Measured 2021-07-15 10:39:00 107.80 pounds Height Measured 2021-07-15 10:39:00 53.00 inches Body Temperature 2021-07-15 10:39:00 98.30 degrees Heart Rate 2021-07-15 10:39:00 69.00 /min Respiratory Rate 2021-07-15 10:39:00 17.00 /min BP Systolic 2021-07-13 10:39:00 132 mm[Hg] BP Diastolic 2021-07-13 10:39:00 65 mm[Hg] Weight Measured 2021-07-13 10:39:00 Height Measured 2021-07-13 10:39:00 Body Temperature 2021-07-13 10:39:00 Heart Rate 2021-07-13 10:39:00 Respiratory Rate 2021-07-13 10:39:00 BP Systolic 2021-04-16 17:29:00 123 mm[Hg] BP Diastolic 2021-04-16 17:29:00 63 mm[Hg] Weight Measured 2021-04-16 17:29:00 108.80 pounds Height Measured 2021-04-16 17:29:00 53.00 inches Body Temperature 2021-04-16 17:29:00 98.40 degrees Heart Rate 2021-04-16 17:29:00 77.00 /min Respiratory Rate 2021-04-16 17:29:00 17.00 /min BP Systolic 2021-02-05 08:43:00 143 mm[Hg] BP Diastolic 2021-02-05 08:43:00 69 mm[Hg] Weight Measured 2021-02-05 08:43:00 180.00 pounds Height Measured 2021-02-05 08:43:00 53.00 inches Body Temperature 2021-02-05 08:43:00 97.70 degrees Heart Rate 2021-02-05 08:43:00 59.00 /min Respiratory Rate 2021-02-05 08:43:00 17.00 /min BP Systolic 2021-02-05 08:14:00 143 mm[Hg] BP Diastolic 2021-02-05 08:14:00 69 mm[Hg] Weight Measured 2021-02-05 08:14:00 180.00 pounds Height Measured 2021-02-05 08:14:00 53.00 inches Body Temperature 2021-02-05 08:14:00 97.70 degrees Heart Rate 2021-02-05 08:14:00 59.00 /min Respiratory Rate 2021-02-05 08:14:00 17.00 /min BP Systolic 2021-01-05 11:08:00 129 mm[Hg] BP Diastolic 2021-01-05 11:08:00 73 mm[Hg] Weight Measured 2021-01-05 11:08:00 108.00 pounds Height Measured 2021-01-05 11:08:00 53.00 inches Body Temperature 2021-01-05 11:08:00 98.10 degrees Heart Rate 2021-01-05 11:08:00 76.00 /min Respiratory Rate 2021-01-05 11:08:00 16.00 /min BP Systolic 2020-10-26 13:56:00 139 mm[Hg] BP Diastolic 2020-10-26 13:56:00 74 mm[Hg] Weight Measured 2020-10-26 13:56:00 109.40 pounds Height Measured 2020-10-26 13:56:00 53.00 inches Body Temperature 2020-10-26 13:56:00 98.50 degrees Heart Rate 2020-10-26 13:56:00 74.00 /min Respiratory Rate 2020-10-26 13:56:00 17.00 /min Plan of Care Planned Activity Planned Date Details Comments Source Goal Plan of Care Note [code = 76600-8] Goal Plan of Care Note [code = 99954-9] Goal Plan of Care Note [code = 50100-7] Goal Plan of Care Note [code = 40884-7] Goal Plan of Care Note [code = 06330-4] Goal Plan of Care Note [code = 17483-4] Goal Plan of Care Note [code = 18023-2] Goal Plan of Care Note [code = 39820-4] Goal Plan of Care Note [code = 68064-2] Goal Plan of Care Note [code = 38126-2] Goal Plan of Care Note [code = 76291-5] Goal Plan of Care Note [code = 49642-2] Goal Plan of Care Note [code = 70364-0] Goal Plan of Care Note [code = 37522-8] Goal Plan of Care Note [code = 03737-3] Goal Plan of Care Note [code = 94920-1] Goal Plan of Care Note [code = 09196-0] Goal Plan of Care Note [code = 91878-4] Goal Plan of Care Note [code = 70640-5] Goal Plan of Care Note [code = 31177-6] Goal Plan of Care Note [code = 11846-5] Goal Plan of Care Note [code = 96607-2] Goal Plan of Care Note [code = 50219-5] Goal Plan of Care Note [code = 58904-6] Goal Plan of Care Note [code = 86807-3] Goal Plan of Care Note [code = 20528-2] Goal Plan of Care Note [code = 64812-6] Goal Plan of Care Note [code = 85876-8] Goal Plan of Care Note [code = 32022-5] Goal Plan of Care Note [code = 58051-8] Goal Plan of Care Note [code = 01137-8] Goal Plan of Care Note [code = 52994-1] Goal Plan of Care Note [code = 02875-3] Goal Plan of Care Note [code = 19554-7] Goal Plan of Care Note [code = 54335-4] Goal Plan of Care Note [code = 61930-6] Goal Plan of Care Note [code = 25159-8] Goal Plan of Care Note [code = 09690-6] Goal Plan of Care Note [code = 16314-4] Goal Plan of Care Note [code = 09600-7] Goal Plan of Care Note [code = 26691-2] Goal Plan of Care Note [code = 01774-4] Goal Plan of Care Note [code = 51240-9] Goal Plan of Care Note [code = 74748-2] Goal Plan of Care Note [code = 41899-4] Goal Plan of Care Note [code = 31448-3] Goal Plan of Care Note [code = 10841-9] Goal Plan of Care Note [code = 56456-5] Goal Plan of Care Note [code = 42273-4] Goal Plan of Care Note [code = 38821-6] Goal Plan of Care Note [code = 74266-1] Goal Plan of Care Note [code = 36349-2] Goal Plan of Care Note [code = 54903-8] Goal Plan of Care Note [code = 04062-2] Goal Plan of Care Note [code = 98911-5] Goal Plan of Care Note [code = 99191-0] Goal Plan of Care Note [code = 74874-0] Goal Plan of Care Note [code = 25496-7] Goal Plan of Care Note [code = 56219-2] Goal Plan of Care Note [code = 82580-0] Goal Plan of Care Note [code = 23763-9] Goal Plan of Care Note [code = 78870-5] Goal Plan of Care Note [code = 44485-5] Goal Plan of Care Note [code = 36472-3] Goal Plan of Care Note [code = 56797-5] Goal Plan of Care Note [code = 21267-6] Goal Plan of Care Note [code = 97320-0] Goal Plan of Care Note [code = 90440-7] Goal Plan of Care Note [code = 16910-3] Goal Plan of Care Note [code = 62297-9] Goal Plan of Care Note [code = 71587-6] Goal Plan of Care Note [code = 98602-4] Goal Plan of Care Note [code = 29709-9] Goal Plan of Care Note [code = 63146-3] Goal Plan of Care Note [code = 21280-6] Goal Plan of Care Note [code = 15792-8] Goal Plan of Care Note [code = 28217-9] Goal Plan of Care Note [code = 30809-0] Goal Plan of Care Note [code = 67282-0] Goal Plan of Care Note [code = 95169-2] Goal Plan of Care Note [code = 91025-2] Goal Plan of Care Note [code = 57397-9] Goal Plan of Care Note [code = 76159-3] Goal Plan of Care Note [code = 16102-4] Goal Plan of Care Note [code = 21364-0] Goal Plan of Care Note [code = 00626-8] Goal Plan of Care Note [code = 76523-3] Goal Plan of Care Note [code = 06572-4] Goal Plan of Care Note [code = 05627-3] Goal Plan of Care Note [code = 98921-3] Goal Plan of Care Note [code = 89223-6] Goal Plan of Care Note [code = 13074-6] Goal Plan of Care Note [code = 68768-6] Goal Plan of Care Note [code = 77854-2] Goal Plan of Care Note [code = 36172-4] Goal Plan of Care Note [code = 16674-4] Goal Plan of Care Note [code = 32010-6] Encounters Start Date/Time End Date/Time Encounter Type Admission Type Attending Clinicians Care Facility Care Department Encounter ID Source 2023-07-17 16:36:05 2023-07-17 16:36:05 Outpatient [facility] [address]angel 2023-06-30 07:57:31 2023-06-30 07:57:31 Outpatient SFA [facility] 1006 [address] Rangel 2023-03-29 13:11:00 2023-03-29 13:11:00 Outpatient [facility] 0705 [address] Rangel 2023-03-25 09:01:34 2023-03-25 09:01:34 Outpatient SFA [facility] 0701 El[address] Rangel 2022-11-30 13:21:34 2022-11-30 13:21:34 Outpatient SFA [facility] [id number] [address] Rangel 2022-10-04 13:09:03 2022-10-04 13:09:03 Outpatient [facility] [id number] [address] Rangel 2022-09-12 11:59:11 2022-09-12 11:59:11 Outpatient [facility] 1219 [address] Rangel 2022-09-12 00:00:00 2022-09-12 00:00:00 Outpatient Visit [id number] 2022-08-30 08:14:17 2022-08-30 08:14:17 Outpatient SFA [facility] 1206 [address] Rangel 2022-07-12 14:15:25 2022-07-12 14:15:25 Outpatient SFA [facility] 1018 [address] Rangel 2022-07-08 08:01:27 2022-07-08 08:01:27 Outpatient SFA [facility] 1014 [address] Rangel 2022-07-08 00:00:00 2022-07-08 00:00:00 Outpatient Visit [id number] 00:00:00 2022-04-26 00:00:00 Outpatient Visit [id number] Results Test Description Test Time Test Comments Results Result Co mments Source TSH, THIRD [id number] 09:41:19* Test Item Value Reference Range Interpretation Comme nts TSH, THIRD GENERATION (test code = 2821) 1.720 UIU/ML 0.400-4.100 [facility] has impo rtant pathology staff changes effective 11/23/2022. New pathology staff will provide uninterrupted, excellent patient care and clinical consultation. See URL: [email or web address]. UNLESS OTHERWISE INDICATED, ALL TESTING PERFORMED AT [facility] [address] [place] [address] CHANGE RELEASE MANAGER: LUCIO RAGSDALE M.D. [place] NUMBER [id number] [facility] [place]. [id number] COMPREHENSIVE METABOLIC [id number] 03:30:14* Test Item Value Reference Range Interpretation Comme nts GLUCOSE (test code = 2217) 95 MG/DL 70-99 BUN (test code = 2208) 13 MG/DL 8-23 CREATININE (test code = 2214) 0.66 MG/DL 0.60-1.30 eGFR (2020 CKD-EPI) (test code = 58906) 91 ML/MIN/1.73 >60 CALC BUN/CREAT (test code = 2235) 20 RATIO 6-28 SODIUM (test code = 2231) 140 MEQ/L 133-146 POTASSIUM (test code = 2228) 4.5 MEQ/L 3.5-5.4 CHLORIDE (test code = 2215) 104 MEQ/L 95-107 CARBON DIOXIDE (test code = 2206) 25 MEQ/L 19-31 CALCIUM (test code = 2209) 9.9 MG/DL 8.5-10.5 PROTEIN, TOTAL (test code = 2229) 7.6 G/DL 6.1-8.3 ALBUMIN (test code = 2201) 4.4 G/DL 3.5-5.2 CALC GLOBULIN (test code = 2240) 3.2 G/DL 1.9-3.7 CALC A/G RATIO (test code = 2234) 1.4 RATIO 1.0-2.6 BILIRUBIN, TOTAL (test code = 2207) 0.3 MG/DL See_Comment [Automated me ssage] The system which generated this result transmitted reference range: <=1.2. The reference range was not used to interpret this result as normal/abnormal. ALKALINE PHOSPHATASE (test code = 2204) 96 U/L 40-142 AST (test code = 2218) 25 U/L 9-40 ALT (test code = 2219) 24 U/L 5-40 LIPID [id number] 03:30:14* Test Item Value Reference Range Interpretation Comme nts CHOLESTEROL (test code = 2210) 158 MG/DL <200 TRIGLYCERIDES (test code = 2232) 157 MG/DL <150 H HDL CHOLESTEROL (test code = 2220) 60 MG/DL >39 CALC LDL CHOL (test code = 2237) 75 MG/DL <100 NOTE: CALCULATED LDL IS BASED ON SUSHMA-OROPEZA METHOD WHICHINCLUDES ADJUSTABLE TRIGLYCERIDE:VLDL CHOLESTEROL RATIO.THIS FACTOR VARIES BY MEASURED TRIGLYCERIDE AND NON-HDLCHOLESTEROL CONCENTRATIONS WITH INCREASED CALCULATED LDL SEENIN HIGHER TRIGLYCERIDE OR LOWER NON-HDL SPECIMENS. FOR MOREINFORMATION, SEE CLIENT ANNOUNCEMENT AT [email or web address] RATIO LDL/HDL (test code = 2238) 1.25 RATIO <3.22 UNLESS OTHERW ISE INDICATED, ALL TESTING PERFORMED [facility] [address] [place] [address] CHANGE RELEASE MANAGER: IGNACIO HANDY M.D. CLIA NUMBER [id number] [facility] [place]. [id number] HEMOGLOBIN [id number] 03:24:09* Test Item Value Reference Range Interpretation Comme nts HEMOGLOBIN A1c (test code = 61075) 5.9 % 4.2-5.6 H CBC W/AUTO DIFF WITH [id number] 02:15:17* Test Item Value Reference Range Interpretation Comme nts WBC (test code = 1001) 6.8 K/UL 3.5-11.0 RBC (test code = 1002) 4.60 M/UL 3.80-5.40 HEMOGLOBIN (test code = 1003) 13.0 G/DL 11.5-15.5 HEMATOCRIT (test code = 1004) 39.2 % 34.0-45.0 MCV (test code = 1005) 85.2 fL 80.0-99.0 MCH (test code = 1006) 28.3 PG 25.0-33.0 MCHC (test code = 1007) 33.2 G/DL 31.0-36.0 RDW (test code = 1038) 12.8 % 11.5-15.0 NEUTROPHILS (test code = 1008) 56.1 % LYMPHOCYTES (test code = 1010) 30.7 % MONOCYTES (test code = 1011) 10.0 % EOSINOPHILS (test code = 1012) 2.6 % BASOPHILS (test code = 1013) 0.3 % IMMATURE GRANULOCYTES (test code = 1036) 0.3 % NUCLEATED RBCS (test code = 1065) 0.0 /100 WBC'S See_Comment [Automated [employer]] The system which generated this result transmitted reference range: 0.0. The reference range was not used to interpret this result as normal/abnormal. PLATELET COUNT (test code = 1015) 344 K/UL 130-400 ABSOLUTE NEUTROPHILS (test code = 1066) 3.82 K/UL 1.50-7.50 ABSOLUTE LYMPHOCYTES (test code = 1067) 2.09 K/UL 1.00-4.00 ABSOLUTE MONOCYTES (test code = 1068) 0.68 K/UL 0.20-1.00 ABSOLUTE EOSINOPHILS (test code = 1040) 0.18 K/UL 0.00-0.50 ABSOLUTE BASOPHILS (test code = 1069) 0.02 K/UL 0.00-0.20 ABS IMMATURE GRANULOCYTES (test code = 1020) 0.02 K/UL 0.00-0.10 ABS NUCLEATED RBCS (test code = 82386) 0.00 K/UL 0.00-0.11 TSH, THIRD [id number] 04:59:33* Test Item Value Reference Range Interpretation Comme nts TSH, THIRD GENERATION (test code = 2821) 1.940 UIU/ML 0.400-4.100 LIPID [id number] 04:04:31* Test Item Value Reference Range Interpretation Comme nts CHOLESTEROL (test code = 2210) 190 MG/DL <200 TRIGLYCERIDES (test code = 2232) 83 MG/DL <150 HDL CHOLESTEROL (test code = 2220) 64 MG/DL >39 CALC LDL CHOL (test code = 2237) 109 MG/DL <100 H NOTE: CALCULATED LDL IS BASED ON SUSHMA-OROPEZA METHOD WHICHINCLUDES ADJUSTABLE TRIGLYCERIDE:VLDL CHOLESTEROL RATIO.THIS FACTOR VARIES BY MEASURED TRIGLYCERIDE AND NON-HDLCHOLESTEROL CONCENTRATIONS WITH INCREASED CALCULATED LDL SEENIN HIGHER TRIGLYCERIDE OR LOWER NON-HDL SPECIMENS. FOR MOREINFORMATION, SEE CLIENT ANNOUNCEMENT AT [email or web address] RATIO LDL/HDL (test code = 2238) 1.70 RATIO <3.22 UNLESS OTHERW ISE INDICATED, ALL TESTING PERFORMED [facility] [employer] [facility] [employer] [address] [place] [id number] CHANGE RELEASE MANAGER: IGNACIO HANDY M.D. CLIA NUMBER [id number] [facility] [place]. [id number] 00:00:00* Test Item Value Reference Range Interpretation Comme nts TSH, THIRD GENERATION (test code = 2821) 1.940 UIU/ML [id number] 00:00:00* Test Item Value Reference Range Interpretation Comme nts TSH, THIRD GENERATION (test code = 2821) 1.940 UIU/ML [id number] 00:00:00* Test Item Value Reference Range Interpretation Comme nts TSH, THIRD GENERATION (test code = 2821) 1.940 UIU/ML LIPID [id number] 00:00:00* Test Item Value Reference Range Interpretation Comme nts CHOLESTEROL (test code = 2210) 190 MG/DL TRIGLYCERIDES (test code = 2232) 83 MG/DL HDL CHOLESTEROL (test code = 2220) 64 MG/DL CALC LDL CHOL (test code = 2237) 109 MG/DL RISK RATIO LDL/HDL (test cod e = 2238) 1.70 RATIO LIPID [id number] 00:00:00* Test Item Value Reference Range Interpretation Comme nts CHOLESTEROL (test code = 2210) 190 MG/DL TRIGLYCERIDES (test code = 2232) 83 MG/DL HDL CHOLESTEROL (test code = 2220) 64 MG/DL CALC LDL CHOL (test code = 2237) 109 MG/DL RISK RATIO LDL/HDL (test cod e = 2238) 1.70 RATIO TSH, THIRD [id number] 10:50:30* Test Item Value Reference Range Interpretation Comme nts TSH, THIRD GENERATION (test code = 2821) 3.760 UIU/ML 0.400-4.100 UNLESS OTHERWISE INDICATED, ALL TESTING PERFORMED [facility] [address] [place] [id number] CHANGE RELEASE MANAGER: IGNACIO HANDY M.D. IA NUMBER [id number] [facility] [place]. [id number] 00:00:00* Test Item Value Reference Range Interpretation Comme nts TSH, THIRD GENERATION (test code = 2821) 3.760 UIU/ML [id number] 00:00:00* Test Item Value Reference Range Interpretation Comme nts TSH, THIRD GENERATION (test code = 2821) 3.760 UIU/ML [id number] 00:00:00* Test Item Value Reference Range Interpretation Comme nts TSH, THIRD GENERATION (test code = 2821) 3.760 UIU/ML [id number] 00:00:00* Test Item Value Reference Range Interpretation Comme nts TSH, THIRD GENERATION (test code = 2821) 3.760 UIU/ML [id number] 00:00:00* Test Item Value Reference Range Interpretation Comme nts TSH, THIRD GENERATION (test code = 2821) 3.760 UIU/ML [id number] 00:00:00* Test Item Value Reference Range Interpretation Comme nts TSH, THIRD GENERATION (test code = 2821) 3.760 UIU/ML TSH, THIRD [id number] 06:53:15* Test Item Value Reference Range Interpretation Comme nts TSH, THIRD GENERATION (test code = 2821) 2.690 UIU/ML 0.400-4.100 COMPREHENSIVE METABOLIC [id number] 05:18:29* Test Item Value Reference Range Interpretation Comme nts GLUCOSE (test code = 2217) 91 MG/DL 70-99 BUN (test code = 2208) 12 MG/DL 8-23 CREATININE (test code = 2214) 0.62 MG/DL 0.60-1.30 eGFR (2020 CKD-EPI) (test code = 29844) 93 ML/MIN/1.73 >60 CALC BUN/CREAT (test code = 2235) 19 RATIO 6-28 SODIUM (test code = 2231) 140 MEQ/L 133-146 POTASSIUM (test code = 2228) 4.0 MEQ/L 3.5-5.4 CHLORIDE (test code = 5) 105 MEQ/L 95-107 CARBON DIOXIDE (test code = 2205) 24 MEQ/L 19-31 CALCIUM (test code = 2208) 9.8 MG/DL 8.5-10.5 PROTEIN, TOTAL (test code = 2228) 7.2 G/DL 6.1-8.3 ALBUMIN (test code = 1) 4.4 G/DL 3.5-5.2 CALC GLOBULIN (test code = 0) 2.8 G/DL 1.9-3.7 CALC A/G RATIO (test code = 2233) 1.6 RATIO 1.0-2.6 BILIRUBIN, TOTAL (test code = 2206) 0.3 MG/DL See_Comment [Automated me ssage] The system which generated this result transmitted reference range: <=1.2. The reference range was not used to interpret this result as normal/abnormal. ALKALINE PHOSPHATASE (test code = 2203) 85 U/L 40-142 AST (test code = 2217) 18 U/L 9-40 ALT (test code = 2218) 18 U/L 5-40 LIPID [id number] 05:18:29* Test Item Value Reference Range Interpretation Comme nts CHOLESTEROL (test code = 0) 221 MG/DL <200 H TRIGLYCERIDES (test code = 2) 116 MG/DL <150 HDL CHOLESTEROL (test code = 0) 63 MG/DL >39 CALC LDL CHOL (test code = 2236) 136 MG/DL <100 H NOTE: CALCULATED LDL IS BASED ON SUSHMA-OROPEZA METHOD WHICHINCLUDES ADJUSTABLE TRIGLYCERIDE:VLDL CHOLESTEROL RATIO.THIS FACTOR VARIES BY MEASURED TRIGLYCERIDE AND NON-HDLCHOLESTEROL CONCENTRATIONS WITH INCREASED CALCULATED LDL SEENIN HIGHER TRIGLYCERIDE OR LOWER NON-HDL SPECIMENS. FOR MOREINFORMATION, SEE CLIENT ANNOUNCEMENT AT [email or web address] RISK RATIO LDL/HDL (test code = 2238) 2.16 RATIO <3.22 HEMOGLOBIN [id number] 05:13:46* Test Item Value Reference Range Interpretation Comme nts HEMOGLOBIN A1c (test code = 86774) 5.6 % 4.2-5.6 UNLESS OTHERWISE INDICATED, ALL TESTING PER[facility] [address] [place] [id number] CHANGE RELEASE MANAGER: IGNACIO HANDY M.D. CLIA NUMBER [id number] [facility] [place]. [id number] CBC W/AUTO DIFF WITH [id number] 03:18:03* Test Item Value Reference Range Interpretation Comme nts WBC (test code = 1001) 6.2 K/UL 3.5-11.0 RBC (test code = 1002) 4.54 M/UL 3.80-5.40 HEMOGLOBIN (test code = 1003) 13.5 G/DL 11.5-15.5 HEMATOCRIT (test code = 1004) 38.8 % 34.0-45.0 MCV (test code = 1005) 85.5 fL 80.0-99.0 MCH (test code = 1006) 29.7 PG 25.0-33.0 MCHC (test code = 1007) 34.8 G/DL 31.0-36.0 RDW (test code = 1038) 13.1 % 11.5-15.0 NEUTROPHILS (test code = 1008) 61.3 % LYMPHOCYTES (test code = 1010) 28.1 % MONOCYTES (test code = 1011) 8.3 % EOSINOPHILS (test code = 1012) 1.5 % BASOPHILS (test code = 1013) 0.5 % IMMATURE GRANULOCYTES (test code = 1036) 0.3 % NUCLEATED RBCS (test code = 1065) 0.0 /100 WBC'S See_Comment [Automated messa ge] The system which generated this result transmitted reference range: 0.0. The reference range was not used to interpret this result as normal/abnormal. PLATELET COUNT (test code = 1015) 344 K/UL 130-400 ABSOLUTE NEUTROPHILS (test code = 1066) 3.78 K/UL 1.50-7.50 ABSOLUTE LYMPHOCYTES (test code = 1067) 1.73 K/UL 1.00-4.00 ABSOLUTE MONOCYTES (test code = 1068) 0.51 K/UL 0.20-1.00 ABSOLUTE EOSINOPHILS (test code = 1040) 0.09 K/UL 0.00-0.50 ABSOLUTE BASOPHILS (test code = 1069) 0.03 K/UL 0.00-0.20 ABS IMMATURE GRANULOCYTES (test code = 1020) 0.02 K/UL 0.00-0.10 ABS NUCLEATED RBCS (test code = 29587) 0.00 K/UL 0.00-0.11 COMPREHENSIVE METABOLIC [id number] 00:00:00* Test Item Value Reference Range Interpretation Comme nts GLUCOSE (test code = 2217) 91 MG/DL BUN (test code = 2208) 12 MG/DL CREATININE (test code = 2214) 0.62 MG/DL eGFR (2020 CKD-EPI) (test co de = 08405) 93 ML/MIN/1.73 CALC BUN/CREAT (test code = 2235) 19 RATIO SODIUM (test code = 2231) 140 MEQ/L POTASSIUM (test code = 2228) 4.0 MEQ/L CHLORIDE (test code = 2215) 105 MEQ/L CARBON DIOXIDE (test code = 2206) 24 MEQ/L CALCIUM (test code = 2209) 9.8 MG/DL PROTEIN, TOTAL (test code = 2229) 7.2 G/DL ALBUMIN (test code = 2201) 4.4 G/DL CALC GLOBULIN (test code = 2240) 2.8 G/DL CALC A/G RATIO (test code = 2234) 1.6 RATIO BILIRUBIN, TOTAL (test code = 2207) 0.3 MG/DL ALKALINE PHOSPHATASE (test code = 2204) 85 U/L AST (test code = 2218) 18 U/L ALT (test code = 2219) 18 U/L LIPID [id number] 00:00:00* Test Item Value Reference Range Interpretation Comme nts CHOLESTEROL (test code = 2210) 221 MG/DL TRIGLYCERIDES (test code = 2232) 116 MG/DL HDL CHOLESTEROL (test code = 2220) 63 MG/DL CALC LDL CHOL (test code = 2237) 136 MG/DL RISK RATIO LDL/HDL (test cod e = 2238) 2.16 RATIO HEMOGLOBIN [id number] 00:00:00* Test Item Value Reference Range Interpretation Comme nts HEMOGLOBIN A1c (test code = 74280) 5.6 % HEMOGLOBIN [id number] 00:00:00* Test Item Value Reference Range Interpretation Comme nts HEMOGLOBIN A1c (test code = 70799) 5.6 % [id number] 00:00:00* Test Item Value Reference Range Interpretation Comme nts TSH, THIRD GENERATION (test code = 2821) 2.690 UIU/ML [id number] 00:00:00* Test Item Value Reference Range Interpretation Comme nts TSH, THIRD GENERATION (test code = 2821) 2.690 UIU/ML [id number] 00:00:00* Test Item Value Reference Range Interpretation Comme nts TSH, THIRD GENERATION (test code = 2821) 2.690 UIU/ML CBC W/AUTO [id number] 00:00:00* Test Item Value Reference Range Interpretation Comme nts WBC (test code = 1001) 6.2 K/UL RBC (test code = 1002) 4.54 M/UL HEMOGLOBIN (test code = 1003) 13.5 G/DL HEMATOCRIT (test code = 1004) 38.8 % MCV (test code = 1005) 85.5 fL MCH (test code = 1006) 29.7 PG MCHC (test code = 1007) 34.8 G/DL RDW (test code = 1038) 13.1 % NEUTROPHILS (test code = 1008) 61.3 % LYMPHOCYTES (test code = 1010) 28.1 % MONOCYTES (test code = 1011) 8.3 % EOSINOPHILS (test code = 1012) 1.5 % BASOPHILS (test code = 1013) 0.5 % IMMATURE GRANULOCYTES (test code = 1036) 0.3 % NUCLEATED RBCS (test code = 1065) 0.0 /100WBC'S PLATELET COUNT (test code = 1015) 344 K/UL ABSOLUTE NEUTROPHILS (test c ode = 1066) 3.78 K/UL ABSOLUTE LYMPHOCYTES (test c ode = 1067) 1.73 K/UL ABSOLUTE MONOCYTES (test cod e = 1068) 0.51 K/UL ABSOLUTE EOSINOPHILS (test c ode = 1040) 0.09 K/UL ABSOLUTE BASOPHILS (test cod e = 1069) 0.03 K/UL ABS IMMATURE GRANULOCYTES (t est code = 1020) 0.02 K/UL ABS NUCLEATED RBCS (test cod e = 12839) 0.00 K/UL CBC W/AUTO [id number] 00:00:00* Test Item Value Reference Range Interpretation Comme nts WBC (test code = 1001) 6.2 K/UL RBC (test code = 1002) 4.54 M/UL HEMOGLOBIN (test code = 1003) 13.5 G/DL HEMATOCRIT (test code = 1004) 38.8 % MCV (test code = 1005) 85.5 fL MCH (test code = 1006) 29.7 PG MCHC (test code = 1007) 34.8 G/DL RDW (test code = 1038) 13.1 % NEUTROPHILS (test code = 1008) 61.3 % LYMPHOCYTES (test code = 1010) 28.1 % MONOCYTES (test code = 1011) 8.3 % EOSINOPHILS (test code = 1012) 1.5 % BASOPHILS (test code = 1013) 0.5 % IMMATURE GRANULOCYTES (test code = 1036) 0.3 % NUCLEATED RBCS (test code = 1065) 0.0 /100WBC'S PLATELET COUNT (test code = 1015) 344 K/UL ABSOLUTE NEUTROPHILS (test c ode = 1066) 3.78 K/UL ABSOLUTE LYMPHOCYTES (test c ode = 1067) 1.73 K/UL ABSOLUTE MONOCYTES (test cod e = 1068) 0.51 K/UL ABSOLUTE EOSINOPHILS (test c ode = 1040) 0.09 K/UL ABSOLUTE BASOPHILS (test cod e = 1069) 0.03 K/UL ABS IMMATURE GRANULOCYTES (t est code = 1020) 0.02 K/UL ABS NUCLEATED RBCS (test cod e = 46325) 0.00 K/UL CBC W/AUTO [id number] 00:00:00* Test Item Value Reference Range Interpretation Comme nts WBC (test code = 1001) 6.2 K/UL RBC (test code = 1002) 4.54 M/UL HEMOGLOBIN (test code = 1003) 13.5 G/DL HEMATOCRIT (test code = 1004) 38.8 % MCV (test code = 1005) 85.5 fL MCH (test code = 1006) 29.7 PG MCHC (test code = 1007) 34.8 G/DL RDW (test code = 1038) 13.1 % NEUTROPHILS (test code = 1008) 61.3 % LYMPHOCYTES (test code = 1010) 28.1 % MONOCYTES (test code = 1011) 8.3 % EOSINOPHILS (test code = 1012) 1.5 % BASOPHILS (test code = 1013) 0.5 % IMMATURE GRANULOCYTES (test code = 1036) 0.3 % NUCLEATED RBCS (test code = 1065) 0.0 /100WBC'S PLATELET COUNT (test code = 1015) 344 K/UL ABSOLUTE NEUTROPHILS (test c ode = 1066) 3.78 K/UL ABSOLUTE LYMPHOCYTES (test c ode = 1067) 1.73 K/UL ABSOLUTE MONOCYTES (test cod e = 1068) 0.51 K/UL ABSOLUTE EOSINOPHILS (test c ode = 1040) 0.09 K/UL ABSOLUTE BASOPHILS (test cod e = 1069) 0.03 K/UL ABS IMMATURE GRANULOCYTES (t est code = 1020) 0.02 K/UL ABS NUCLEATED RBCS (test cod e = 17036) 0.00 K/UL COMPREHENSIVE METABOLIC [id number] 00:00:00* Test Item Value Reference Range Interpretation Comme nts GLUCOSE (test code = 2217) 91 MG/DL BUN (test code = 2208) 12 MG/DL CREATININE (test code = 2214) 0.62 MG/DL eGFR (2020 CKD-EPI) (test co de = 97190) 93 ML/MIN/1.73 CALC BUN/CREAT (test code = 2235) 19 RATIO SODIUM (test code = 2231) 140 MEQ/L POTASSIUM (test code = 2228) 4.0 MEQ/L CHLORIDE (test code = 2215) 105 MEQ/L CARBON DIOXIDE (test code = 2206) 24 MEQ/L CALCIUM (test code = 2209) 9.8 MG/DL PROTEIN, TOTAL (test code = 2229) 7.2 G/DL ALBUMIN (test code = 2201) 4.4 G/DL CALC GLOBULIN (test code = 2240) 2.8 G/DL CALC A/G RATIO (test code = 2234) 1.6 RATIO BILIRUBIN, TOTAL (test code = 2207) 0.3 MG/DL ALKALINE PHOSPHATASE (test code = 2204) 85 U/L AST (test code = 2218) 18 U/L ALT (test code = 2219) 18 U/L COMPREHENSIVE METABOLIC [id number] 00:00:00* Test Item Value Reference Range Interpretation Comme nts GLUCOSE (test code = 2217) 91 MG/DL BUN (test code = 2208) 12 MG/DL CREATININE (test code = 2214) 0.62 MG/DL eGFR (2020 CKD-EPI) (test co de = 91468) 93 ML/MIN/1.73 CALC BUN/CREAT (test code = 2235) 19 RATIO SODIUM (test code = 2231) 140 MEQ/L POTASSIUM (test code = 2228) 4.0 MEQ/L CHLORIDE (test code = 2215) 105 MEQ/L CARBON DIOXIDE (test code = 2206) 24 MEQ/L CALCIUM (test code = 2209) 9.8 MG/DL PROTEIN, TOTAL (test code = 2229) 7.2 G/DL ALBUMIN (test code = 2201) 4.4 G/DL CALC GLOBULIN (test code = 2240) 2.8 G/DL CALC A/G RATIO (test code = 2234) 1.6 RATIO BILIRUBIN, TOTAL (test code = 2207) 0.3 MG/DL ALKALINE PHOSPHATASE (test code = 2204) 85 U/L AST (test code = 2218) 18 U/L ALT (test code = 2219) 18 U/L LIPID [id number] 00:00:00* Test Item Value Reference Range Interpretation Comme nts CHOLESTEROL (test code = 2210) 221 MG/DL TRIGLYCERIDES (test code = 2232) 116 MG/DL HDL CHOLESTEROL (test code = 2220) 63 MG/DL CALC LDL CHOL (test code = 2237) 136 MG/DL RISK RATIO LDL/HDL (test cod e = 2238) 2.16 RATIO LIPID [id number] 00:00:00* Test Item Value Reference Range Interpretation Comme nts CHOLESTEROL (test code = 2210) 221 MG/DL TRIGLYCERIDES (test code = 2232) 116 MG/DL HDL CHOLESTEROL (test code = 2220) 63 MG/DL CALC LDL CHOL (test code = 2237) 136 MG/DL RISK RATIO LDL/HDL (test cod e = 2238) 2.16 RATIO HEMOGLOBIN [id number] 00:00:00* Test Item Value Reference Range Interpretation Comme nts HEMOGLOBIN A1c (test code = 03488) 5.6 % HEMOGLOBIN [id number] 00:00:00* Test Item Value Reference Range Interpretation Comme nts HEMOGLOBIN A1c (test code = 91757) 5.6 % HEMOGLOBIN [id number] 00:00:00* Test Item Value Reference Range Interpretation Comme nts HEMOGLOBIN A1c (test code = 31190) 5.6 % [id number] 00:00:00* Test Item Value Reference Range Interpretation Comme nts TSH, THIRD GENERATION (test code = 2821) 2.690 UIU/ML [id number] 00:00:00* Test Item Value Reference Range Interpretation Comme nts TSH, THIRD GENERATION (test code = 2821) 2.690 UIU/ML [id number] 00:00:00* Test Item Value Reference Range Interpretation Comme nts TSH, THIRD GENERATION (test code = 2821) 2.690 UIU/ML CBC W/AUTO [id number] 00:00:00* Test Item Value Reference Range Interpretation Comme nts WBC (test code = 1001) 6.2 K/UL RBC (test code = 1002) 4.54 M/UL HEMOGLOBIN (test code = 1003) 13.5 G/DL HEMATOCRIT (test code = 1004) 38.8 % MCV (test code = 1005) 85.5 fL MCH (test code = 1006) 29.7 PG MCHC (test code = 1007) 34.8 G/DL RDW (test code = 1038) 13.1 % NEUTROPHILS (test code = 1008) 61.3 % LYMPHOCYTES (test code = 1010) 28.1 % MONOCYTES (test code = 1011) 8.3 % EOSINOPHILS (test code = 1012) 1.5 % BASOPHILS (test code = 1013) 0.5 % IMMATURE GRANULOCYTES (test code = 1036) 0.3 % NUCLEATED RBCS (test code = 1065) 0.0 /100WBC'S PLATELET COUNT (test code = 1015) 344 K/UL ABSOLUTE NEUTROPHILS (test c ode = 1066) 3.78 K/UL ABSOLUTE LYMPHOCYTES (test c ode = 1067) 1.73 K/UL ABSOLUTE MONOCYTES (test cod e = 1068) 0.51 K/UL ABSOLUTE EOSINOPHILS (test c ode = 1040) 0.09 K/UL ABSOLUTE BASOPHILS (test cod e = 1069) 0.03 K/UL ABS IMMATURE GRANULOCYTES (t est code = 1020) 0.02 K/UL ABS NUCLEATED RBCS (test cod e = 99171) 0.00 K/UL CBC W/AUTO [id number] 00:00:00* Test Item Value Reference Range Interpretation Comme nts WBC (test code = 1001) 6.2 K/UL RBC (test code = 1002) 4.54 M/UL HEMOGLOBIN (test code = 1003) 13.5 G/DL HEMATOCRIT (test code = 1004) 38.8 % MCV (test code = 1005) 85.5 fL MCH (test code = 1006) 29.7 PG MCHC (test code = 1007) 34.8 G/DL RDW (test code = 1038) 13.1 % NEUTROPHILS (test code = 1008) 61.3 % LYMPHOCYTES (test code = 1010) 28.1 % MONOCYTES (test code = 1011) 8.3 % EOSINOPHILS (test code = 1012) 1.5 % BASOPHILS (test code = 1013) 0.5 % IMMATURE GRANULOCYTES (test code = 1036) 0.3 % NUCLEATED RBCS (test code = 1065) 0.0 /100WBC'S PLATELET COUNT (test code = 1015) 344 K/UL ABSOLUTE NEUTROPHILS (test c ode = 1066) 3.78 K/UL ABSOLUTE LYMPHOCYTES (test c ode = 1067) 1.73 K/UL ABSOLUTE MONOCYTES (test cod e = 1068) 0.51 K/UL ABSOLUTE EOSINOPHILS (test c ode = 1040) 0.09 K/UL ABSOLUTE BASOPHILS (test cod e = 1069) 0.03 K/UL ABS IMMATURE GRANULOCYTES (t est code = 1020) 0.02 K/UL ABS NUCLEATED RBCS (test cod e = 62141) 0.00 K/UL CBC W/AUTO [id number] 00:00:00* Test Item Value Reference Range Interpretation Comme nts WBC (test code = 1001) 6.2 K/UL RBC (test code = 1002) 4.54 M/UL HEMOGLOBIN (test code = 1003) 13.5 G/DL HEMATOCRIT (test code = 1004) 38.8 % MCV (test code = 1005) 85.5 fL MCH (test code = 1006) 29.7 PG MCHC (test code = 1007) 34.8 G/DL RDW (test code = 1038) 13.1 % NEUTROPHILS (test code = 1008) 61.3 % LYMPHOCYTES (test code = 1010) 28.1 % MONOCYTES (test code = 1011) 8.3 % EOSINOPHILS (test code = 1012) 1.5 % BASOPHILS (test code = 1013) 0.5 % IMMATURE GRANULOCYTES (test code = 1036) 0.3 % NUCLEATED RBCS (test code = 1065) 0.0 /100WBC'S PLATELET COUNT (test code = 1015) 344 K/UL ABSOLUTE NEUTROPHILS (test c ode = 1066) 3.78 K/UL ABSOLUTE LYMPHOCYTES (test c ode = 1067) 1.73 K/UL ABSOLUTE MONOCYTES (test cod e = 1068) 0.51 K/UL ABSOLUTE EOSINOPHILS (test c ode = 1040) 0.09 K/UL ABSOLUTE BASOPHILS (test cod e = 1069) 0.03 K/UL ABS IMMATURE GRANULOCYTES (t est code = 1020) 0.02 K/UL ABS NUCLEATED RBCS (test cod e = 06983) 0.00 K/UL COMPREHENSIVE METABOLIC [id number] 00:00:00* Test Item Value Reference Range Interpretation Comme nts GLUCOSE (test code = 2217) 91 MG/DL BUN (test code = 2208) 12 MG/DL CREATININE (test code = 2214) 0.62 MG/DL eGFR (2020 CKD-EPI) (test co de = 96696) 93 ML/MIN/1.73 CALC BUN/CREAT (test code = 2235) 19 RATIO SODIUM (test code = 2231) 140 MEQ/L POTASSIUM (test code = 2228) 4.0 MEQ/L CHLORIDE (test code = 2215) 105 MEQ/L CARBON DIOXIDE (test code = 2206) 24 MEQ/L CALCIUM (test code = 2209) 9.8 MG/DL PROTEIN, TOTAL (test code = 2229) 7.2 G/DL ALBUMIN (test code = 2201) 4.4 G/DL CALC GLOBULIN (test code = 2240) 2.8 G/DL CALC A/G RATIO (test code = 2234) 1.6 RATIO BILIRUBIN, TOTAL (test code = 2207) 0.3 MG/DL ALKALINE PHOSPHATASE (test code = 2204) 85 U/L AST (test code = 2218) 18 U/L ALT (test code = 2219) 18 U/L COMPREHENSIVE METABOLIC [id number] 00:00:00* Test Item Value Reference Range Interpretation Comme nts GLUCOSE (test code = 2217) 91 MG/DL BUN (test code = 2208) 12 MG/DL CREATININE (test code = 2214) 0.62 MG/DL eGFR (2020 CKD-EPI) (test co de = 71490) 93 ML/MIN/1.73 CALC BUN/CREAT (test code = 2235) 19 RATIO SODIUM (test code = 2231) 140 MEQ/L POTASSIUM (test code = 2228) 4.0 MEQ/L CHLORIDE (test code = 2215) 105 MEQ/L CARBON DIOXIDE (test code = 2206) 24 MEQ/L CALCIUM (test code = 2209) 9.8 MG/DL PROTEIN, TOTAL (test code = 2229) 7.2 G/DL ALBUMIN (test code = 2201) 4.4 G/DL CALC GLOBULIN (test code = 2240) 2.8 G/DL CALC A/G RATIO (test code = 2234) 1.6 RATIO BILIRUBIN, TOTAL (test code = 2207) 0.3 MG/DL ALKALINE PHOSPHATASE (test code = 2204) 85 U/L AST (test code = 2218) 18 U/L ALT (test code = 2219) 18 U/L LIPID [id number] 00:00:00* Test Item Value Reference Range Interpretation Comme nts CHOLESTEROL (test code = 2210) 221 MG/DL TRIGLYCERIDES (test code = 2232) 116 MG/DL HDL CHOLESTEROL (test code = 2220) 63 MG/DL CALC LDL CHOL (test code = 2237) 136 MG/DL RISK RATIO LDL/HDL (test cod e = 2238) 2.16 RATIO LIPID [id number] 00:00:00* Test Item Value Reference Range Interpretation Comme nts CHOLESTEROL (test code = 2210) 221 MG/DL TRIGLYCERIDES (test code = 2232) 116 MG/DL HDL CHOLESTEROL (test code = 2220) 63 MG/DL CALC LDL CHOL (test code = 2237) 136 MG/DL RISK RATIO LDL/HDL (test cod e = 2238) 2.16 RATIO HEMOGLOBIN [id number] 00:00:00* Test Item Value Reference Range Interpretation Comme nts HEMOGLOBIN A1c (test code = 42561) 5.6 % HEMOGLOBIN [id number] 00:00:00* Test Item Value Reference Range Interpretation Comme nts HEMOGLOBIN A1c (test code = 82939) 5.6 % HEMOGLOBIN [id number] 00:00:00* Test Item Value Reference Range Interpretation Comme nts HEMOGLOBIN A1c (test code = 32563) 5.6 % [id number] 00:00:00* Test Item Value Reference Range Interpretation Comme nts TSH, THIRD GENERATION (test code = 2821) 2.690 UIU/ML [id number] 00:00:00* Test Item Value Reference Range Interpretation Comme nts TSH, THIRD GENERATION (test code = 2821) 2.690 UIU/ML CBC W/AUTO [id number] 00:00:00* Test Item Value Reference Range Interpretation Comme nts WBC (test code = 1001) 6.2 K/UL RBC (test code = 1002) 4.54 M/UL HEMOGLOBIN (test code = 1003) 13.5 G/DL HEMATOCRIT (test code = 1004) 38.8 % MCV (test code = 1005) 85.5 fL MCH (test code = 1006) 29.7 PG MCHC (test code = 1007) 34.8 G/DL RDW (test code = 1038) 13.1 % NEUTROPHILS (test code = 1008) 61.3 % LYMPHOCYTES (test code = 1010) 28.1 % MONOCYTES (test code = 1011) 8.3 % EOSINOPHILS (test code = 1012) 1.5 % BASOPHILS (test code = 1013) 0.5 % IMMATURE GRANULOCYTES (test code = 1036) 0.3 % NUCLEATED RBCS (test code = 1065) 0.0 /100WBC'S PLATELET COUNT (test code = 1015) 344 K/UL ABSOLUTE NEUTROPHILS (test c ode = 1066) 3.78 K/UL ABSOLUTE LYMPHOCYTES (test c ode = 1067) 1.73 K/UL ABSOLUTE MONOCYTES (test cod e = 1068) 0.51 K/UL ABSOLUTE EOSINOPHILS (test c ode = 1040) 0.09 K/UL ABSOLUTE BASOPHILS (test cod e = 1069) 0.03 K/UL ABS IMMATURE GRANULOCYTES (t est code = 1020) 0.02 K/UL ABS NUCLEATED RBCS (test cod e = 04233) 0.00 K/UL CBC W/AUTO [id number] 00:00:00* Test Item Value Reference Range Interpretation Comme nts WBC (test code = 1001) 6.2 K/UL RBC (test code = 1002) 4.54 M/UL HEMOGLOBIN (test code = 1003) 13.5 G/DL HEMATOCRIT (test code = 1004) 38.8 % MCV (test code = 1005) 85.5 fL MCH (test code = 1006) 29.7 PG MCHC (test code = 1007) 34.8 G/DL RDW (test code = 1038) 13.1 % NEUTROPHILS (test code = 1008) 61.3 % LYMPHOCYTES (test code = 1010) 28.1 % MONOCYTES (test code = 1011) 8.3 % EOSINOPHILS (test code = 1012) 1.5 % BASOPHILS (test code = 1013) 0.5 % IMMATURE GRANULOCYTES (test code = 1036) 0.3 % NUCLEATED RBCS (test code = 1065) 0.0 /100WBC'S PLATELET COUNT (test code = 1015) 344 K/UL ABSOLUTE NEUTROPHILS (test c ode = 1066) 3.78 K/UL ABSOLUTE LYMPHOCYTES (test c ode = 1067) 1.73 K/UL ABSOLUTE MONOCYTES (test cod e = 1068) 0.51 K/UL ABSOLUTE EOSINOPHILS (test c ode = 1040) 0.09 K/UL ABSOLUTE BASOPHILS (test cod e = 1069) 0.03 K/UL ABS IMMATURE GRANULOCYTES (t est code = 1020) 0.02 K/UL ABS NUCLEATED RBCS (test cod e = 80178) 0.00 K/UL TSH, THIRD [id number] 06:24:51* Test Item Value Reference Range Interpretation Comme nts TSH, THIRD GENERATION (test code = 2821) 2.220 UIU/ML 0.400-4.100 UNLESS OTHERWISE INDICATED, [facility] TEST[facility] [address] [place] [id number] CHANGE RELEASE MANAGER: IGNACIO HANDY M.D. CLIA NUMBER [id number] [facility] [place]. [id number] LIPID [id number] 04:48:27* Test Item Value Reference Range Interpretation Comme nts CHOLESTEROL (test code = 2210) 164 MG/DL <200 TRIGLYCERIDES (test code = 2232) 72 MG/DL <150 HDL CHOLESTEROL (test code = 2220) 46 MG/DL >39 CALC LDL CHOL (test code = 2237) 102 MG/DL <100 H NOTE: CALCULATED LDL IS BASED ON SUSHMA-OROPEZA METHOD WHICHINCLUDES ADJUSTABLE TRIGLYCERIDE:VLDL CHOLESTEROL RATIO.THIS FACTOR VARIES BY MEASURED TRIGLYCERIDE AND NON-HDLCHOLESTEROL CONCENTRATIONS WITH INCREASED CALCULATED LDL SEENIN HIGHER TRIGLYCERIDE OR LOWER NON-HDL SPECIMENS. FOR MOREINFORMATION, SEE CLIENT ANNOUNCEMENT AT [email or web address] RATIO LDL/HDL (test code = 2238) 2.22 RATIO <3.22 HEMOGLOBIN [id number] 04:22:21* Test Item Value Reference Range Interpretation Comme nts HEMOGLOBIN A1c (test code = 94527) 5.8 % 4.2-5.6 H [id number] 00:00:00* Test Item Value Reference Range Interpretation Comme nts TSH, THIRD GENERATION (test code = 2821) 2.220 UIU/ML [id number] 00:00:00* Test Item Value Reference Range Interpretation Comme nts TSH, THIRD GENERATION (test code = 2821) 2.220 UIU/ML HEMOGLOBIN [id number] 00:00:00* Test Item Value Reference Range Interpretation Comme nts HEMOGLOBIN A1c (test code = 03005) 5.8 % HEMOGLOBIN [id number] 00:00:00* Test Item Value Reference Range Interpretation Comme nts HEMOGLOBIN A1c (test code = 11445) 5.8 % HEMOGLOBIN [id number] 00:00:00* Test Item Value Reference Range Interpretation Comme nts HEMOGLOBIN A1c (test code = 16757) 5.8 % LIPID [id number] 00:00:00* Test Item Value Reference Range Interpretation Comme nts CHOLESTEROL (test code = 2210) 164 MG/DL TRIGLYCERIDES (test code = 2232) 72 MG/DL HDL CHOLESTEROL (test code = 2220) 46 MG/DL CALC LDL CHOL (test code = 2237) 102 MG/DL RISK RATIO LDL/HDL (test cod e = 2238) 2.22 RATIO LIPID [id number] 00:00:00* Test Item Value Reference Range Interpretation Comme nts CHOLESTEROL (test code = 2210) 164 MG/DL TRIGLYCERIDES (test code = 2232) 72 MG/DL HDL CHOLESTEROL (test code = 2220) 46 MG/DL CALC LDL CHOL (test code = 2237) 102 MG/DL RISK RATIO LDL/HDL (test cod e = 2238) 2.22 RATIO [id number] 00:00:00* Test Item Value Reference Range Interpretation Comme nts TSH, THIRD GENERATION (test code = 2821) 2.220 UIU/ML [id number] 00:00:00* Test Item Value Reference Range Interpretation Comme nts TSH, THIRD GENERATION (test code = 2821) 2.220 UIU/ML [id number] 00:00:00* Test Item Value Reference Range Interpretation Comme nts TSH, THIRD GENERATION (test code = 2821) 2.220 UIU/ML HEMOGLOBIN [id number] 00:00:00* Test Item Value Reference Range Interpretation Comme nts HEMOGLOBIN A1c (test code = 74413) 5.8 % HEMOGLOBIN [id number] 00:00:00* Test Item Value Reference Range Interpretation Comme nts HEMOGLOBIN A1c (test code = 17647) 5.8 % HEMOGLOBIN [id number] 00:00:00* Test Item Value Reference Range Interpretation Comme nts HEMOGLOBIN A1c (test code = 66111) 5.8 % LIPID [id number] 00:00:00* Test Item Value Reference Range Interpretation Comme nts CHOLESTEROL (test code = 2210) 164 MG/DL TRIGLYCERIDES (test code = 2232) 72 MG/DL HDL CHOLESTEROL (test code = 2220) 46 MG/DL CALC LDL CHOL (test code = 2237) 102 MG/DL RISK RATIO LDL/HDL (test cod e = 2238) 2.22 RATIO LIPID [id number] 00:00:00* Test Item Value Reference Range Interpretation Comme nts CHOLESTEROL (test code = 2210) 164 MG/DL TRIGLYCERIDES (test code = 2232) 72 MG/DL HDL CHOLESTEROL (test code = 2220) 46 MG/DL CALC LDL CHOL (test code = 2237) 102 MG/DL RISK RATIO LDL/HDL (test cod e = 2238) 2.22 RATIO [id number] 00:00:00* Test Item Value Reference Range Interpretation Comme nts TSH, THIRD GENERATION (test code = 2821) 2.220 UIU/ML [id number] 00:00:00* Test Item Value Reference Range Interpretation Comme nts TSH, THIRD GENERATION (test code = 2821) 2.220 UIU/ML [id number] 00:00:00* Test Item Value Reference Range Interpretation Comme nts TSH, THIRD GENERATION (test code = 2821) 2.220 UIU/ML HEMOGLOBIN [id number] 00:00:00* Test Item Value Reference Range Interpretation Comme nts HEMOGLOBIN A1c (test code = 33824) 5.8 % HEMOGLOBIN [id number] 00:00:00* Test Item Value Reference Range Interpretation Comme nts HEMOGLOBIN A1c (test code = 54832) 5.8 % LIPID [id number] 00:00:00* Test Item Value Reference Range Interpretation Comme nts CHOLESTEROL (test code = 2210) 164 MG/DL TRIGLYCERIDES (test code = 2232) 72 MG/DL HDL CHOLESTEROL (test code = 2220) 46 MG/DL CALC LDL CHOL (test code = 2237) 102 MG/DL RISK RATIO LDL/HDL (test cod e = 2238) 2.22 RATIO [id number] 00:00:00* Test Item Value Reference Range Interpretation Comme nts TSH, THIRD GENERATION (test code = 2821) 1.620 UIU/ML [id number] 00:00:00* Test Item Value Reference Range Interpretation Comme nts TSH, THIRD GENERATION (test code = 2821) 1.620 UIU/ML [id number] 00:00:00* Test Item Value Reference Range Interpretation Comme nts TSH, THIRD GENERATION (test code = 2821) 1.620 UIU/ML [id number] 00:00:00* Test Item Value Reference Range Interpretation Comme nts TSH, THIRD GENERATION (test code = 2821) 1.620 UIU/ML [id number] 00:00:00* Test Item Value Reference Range Interpretation Comme nts TSH, THIRD GENERATION (test code = 2821) 1.620 UIU/ML [id number] 00:00:00* Test Item Value Reference Range Interpretation Comme nts TSH, THIRD GENERATION (test code = 2821) 1.620 UIU/ML [id number] 00:00:00* Test Item Value Reference Range Interpretation Comme nts TSH, THIRD GENERATION (test code = 2821) 1.620 UIU/ML [id number] 00:00:00* Test Item Value Reference Range Interpretation Comme nts TSH, THIRD GENERATION (test code = 2821) 1.620 UIU/ML [id number] 00:00:00* Test Item Value Reference Range Interpretation Comme nts TSH, THIRD GENERATION (test code = 2821) 0.221 UIU/ML [id number] 00:00:00* Test Item Value Reference Range Interpretation Comme nts TSH, THIRD GENERATION (test code = 2821) 0.221 UIU/ML HEMOGLOBIN [id number] 00:00:00* Test Item Value Reference Range Interpretation Comme nts HEMOGLOBIN A1c (test code = 42266) 5.9 % HEMOGLOBIN [id number] 00:00:00* Test Item Value Reference Range Interpretation Comme nts HEMOGLOBIN A1c (test code = 74125) 5.9 % HEMOGLOBIN [id number] 00:00:00* Test Item Value Reference Range Interpretation Comme nts HEMOGLOBIN A1c (test code = 93166) 5.9 % LIPID [id number] 00:00:00* Test Item Value Reference Range Interpretation Comme nts CHOLESTEROL (test code = 2210) 172 MG/DL TRIGLYCERIDES (test code = 2232) 177 MG/DL HDL CHOLESTEROL (test code = 2220) 51 MG/DL CALC LDL CHOL (test code = 2237) 94 MG/DL RISK RATIO LDL/HDL (test cod e = 2238) 1.84 RATIO LIPID [id number] 00:00:00* Test Item Value Reference Range Interpretation Comme nts CHOLESTEROL (test code = 2210) 172 MG/DL TRIGLYCERIDES (test code = 2232) 177 MG/DL HDL CHOLESTEROL (test code = 2220) 51 MG/DL CALC LDL CHOL (test code = 2237) 94 MG/DL RISK RATIO LDL/HDL (test cod e = 2238) 1.84 RATIO [id number] 00:00:00* Test Item Value Reference Range Interpretation Comme nts TSH, THIRD GENERATION (test code = 2821) 0.221 UIU/ML [id number] 00:00:00* Test Item Value Reference Range Interpretation Comme nts TSH, THIRD GENERATION (test code = 2821) 0.221 UIU/ML [id number] 00:00:00* Test Item Value Reference Range Interpretation Comme nts TSH, THIRD GENERATION (test code = 2821) 0.221 UIU/ML HEMOGLOBIN [id number] 00:00:00* Test Item Value Reference Range Interpretation Comme nts HEMOGLOBIN A1c (test code = 76783) 5.9 % HEMOGLOBIN [id number] 00:00:00* Test Item Value Reference Range Interpretation Comme nts HEMOGLOBIN A1c (test code = 73915) 5.9 % HEMOGLOBIN [id number] 00:00:00* Test Item Value Reference Range Interpretation Comme nts HEMOGLOBIN A1c (test code = 59678) 5.9 % LIPID [id number] 00:00:00* Test Item Value Reference Range Interpretation Comme nts CHOLESTEROL (test code = 2210) 172 MG/DL TRIGLYCERIDES (test code = 2232) 177 MG/DL HDL CHOLESTEROL (test code = 2220) 51 MG/DL CALC LDL CHOL (test code = 2237) 94 MG/DL RISK RATIO LDL/HDL (test cod e = 2238) 1.84 RATIO LIPID [id number] 00:00:00* Test Item Value Reference Range Interpretation Comme nts CHOLESTEROL (test code = 2210) 172 MG/DL TRIGLYCERIDES (test code = 2232) 177 MG/DL HDL CHOLESTEROL (test code = 2220) 51 MG/DL CALC LDL CHOL (test code = 2237) 94 MG/DL RISK RATIO LDL/HDL (test cod e = 2238) 1.84 RATIO [id number] 00:00:00* Test Item Value Reference Range Interpretation Comme nts TSH, THIRD GENERATION (test code = 2821) 0.221 UIU/ML [id number] 00:00:00* Test Item Value Reference Range Interpretation Comme nts TSH, THIRD GENERATION (test code = 2821) 0.221 UIU/ML [id number] 00:00:00* Test Item Value Reference Range Interpretation Comme nts TSH, THIRD GENERATION (test code = 2821) 0.221 UIU/ML HEMOGLOBIN [id number] 00:00:00* Test Item Value Reference Range Interpretation Comme nts HEMOGLOBIN A1c (test code = 99722) 5.9 % HEMOGLOBIN [id number] 00:00:00* Test Item Value Reference Range Interpretation Comme nts HEMOGLOBIN A1c (test code = 07456) 5.9 % LIPID [id number] 00:00:00* Test Item Value Reference Range Interpretation Comme nts CHOLESTEROL (test code = 2210) 172 MG/DL TRIGLYCERIDES (test code = 2232) 177 MG/DL HDL CHOLESTEROL (test code = 2220) 51 MG/DL CALC LDL CHOL (test code = 2237) 94 MG/DL RISK RATIO LDL/HDL (test cod e = 2238) 1.84 RATIO LIPID [id number] 00:00:00* Test Item Value Reference Range Interpretation Comme nts CHOLESTEROL (test code = 2210) 225 MG/DL TRIGLYCERIDES (test code = 2232) 94 MG/DL HDL CHOLESTEROL (test code = 2220) 51 MG/DL CALC LDL CHOL (test code = 2237) 154 MG/DL RISK RATIO LDL/HDL (test cod e = 2238) 3.02 RATIO LIPID [id number] 00:00:00* Test Item Value Reference Range Interpretation Comme nts CHOLESTEROL (test code = 2210) 225 MG/DL TRIGLYCERIDES (test code = 2232) 94 MG/DL HDL CHOLESTEROL (test code = 2220) 51 MG/DL CALC LDL CHOL (test code = 2237) 154 MG/DL RISK RATIO LDL/HDL (test cod e = 2238) 3.02 RATIO COMPREHENSIVE METABOLIC [id number] 00:00:00* Test Item Value Reference Range Interpretation Comme nts GLUCOSE (test code = 2217) 86 MG/DL BUN (test code = 2208) 11 MG/DL CREATININE (test code = 2214) 0.61 MG/DL eGFR AMER. (test cod e = 15059) 104 ML/MIN/1.73 eGFR NON- AMER. (test code = 95014) 89 ML/MIN/1.73 CALC BUN/CREAT (test code = 2235) 18 RATIO SODIUM (test code = 2231) 136 MEQ/L POTASSIUM (test code = 2228) 4.5 MEQ/L CHLORIDE (test code = 2215) 100 MEQ/L CARBON DIOXIDE (test code = 2206) 27 MEQ/L CALCIUM (test code = 2209) 9.8 MG/DL PROTEIN, TOTAL (test code = 2229) 7.2 G/DL ALBUMIN (test code = 2201) 4.4 G/DL CALC GLOBULIN (test code = 2240) 2.8 G/DL CALC A/G RATIO (test code = 2234) 1.6 RATIO BILIRUBIN, TOTAL (test code = 2207) 0.7 MG/DL ALKALINE PHOSPHATASE (test code = 2204) 77 U/L AST (test code = 2218) 22 U/L ALT (test code = 2219) 22 U/L COMPREHENSIVE METABOLIC [id number] 00:00:00* Test Item Value Reference Range Interpretation Comme nts GLUCOSE (test code = 2217) 86 MG/DL BUN (test code = 2208) 11 MG/DL CREATININE (test code = 2214) 0.61 MG/DL eGFR AMER. (test cod e = 53528) 104 ML/MIN/1.73 eGFR NON- AMER. (test code = 58991) 89 ML/MIN/1.73 CALC BUN/CREAT (test code = 2235) 18 RATIO SODIUM (test code = 2231) 136 MEQ/L POTASSIUM (test code = 2228) 4.5 MEQ/L CHLORIDE (test code = 2215) 100 MEQ/L CARBON DIOXIDE (test code = 2206) 27 MEQ/L CALCIUM (test code = 2209) 9.8 MG/DL PROTEIN, TOTAL (test code = 2229) 7.2 G/DL ALBUMIN (test code = 2201) 4.4 G/DL CALC GLOBULIN (test code = 2240) 2.8 G/DL CALC A/G RATIO (test code = 2234) 1.6 RATIO BILIRUBIN, TOTAL (test code = 2207) 0.7 MG/DL ALKALINE PHOSPHATASE (test code = 2204) 77 U/L AST (test code = 2218) 22 U/L ALT (test code = 2219) 22 U/L LIPID [id number] 00:00:00* Test Item Value Reference Range Interpretation Comme nts CHOLESTEROL (test code = 2210) 225 MG/DL TRIGLYCERIDES (test code = 2232) 94 MG/DL HDL CHOLESTEROL (test code = 2220) 51 MG/DL CALC LDL CHOL (test code = 2237) 154 MG/DL RISK RATIO LDL/HDL (test cod e = 2238) 3.02 RATIO LIPID [id number] 00:00:00* Test Item Value Reference Range Interpretation Comme nts CHOLESTEROL (test code = 2210) 225 MG/DL TRIGLYCERIDES (test code = 2232) 94 MG/DL HDL CHOLESTEROL (test code = 2220) 51 MG/DL CALC LDL CHOL (test code = 2237) 154 MG/DL RISK RATIO LDL/HDL (test cod e = 2238) 3.02 RATIO COMPREHENSIVE METABOLIC [id number] 00:00:00* Test Item Value Reference Range Interpretation Comme nts GLUCOSE (test code = 2217) 86 MG/DL BUN (test code = 2208) 11 MG/DL CREATININE (test code = 2214) 0.61 MG/DL eGFR AMER. (test cod e = 23767) 104 ML/MIN/1.73 eGFR NON- AMER. (test code = 22741) 89 ML/MIN/1.73 CALC BUN/CREAT (test code = 2235) 18 RATIO SODIUM (test code = 2231) 136 MEQ/L POTASSIUM (test code = 2228) 4.5 MEQ/L CHLORIDE (test code = 2215) 100 MEQ/L CARBON DIOXIDE (test code = 2206) 27 MEQ/L CALCIUM (test code = 2209) 9.8 MG/DL PROTEIN, TOTAL (test code = 2229) 7.2 G/DL ALBUMIN (test code = 2201) 4.4 G/DL CALC GLOBULIN (test code = 2240) 2.8 G/DL CALC A/G RATIO (test code = 2234) 1.6 RATIO BILIRUBIN, TOTAL (test code = 2207) 0.7 MG/DL ALKALINE PHOSPHATASE (test code = 2204) 77 U/L AST (test code = 2218) 22 U/L ALT (test code = 2219) 22 U/L COMPREHENSIVE METABOLIC [id number] 00:00:00* Test Item Value Reference Range Interpretation Comme nts GLUCOSE (test code = 2217) 86 MG/DL BUN (test code = 2208) 11 MG/DL CREATININE (test code = 2214) 0.61 MG/DL eGFR AMER. (test cod e = 79461) 104 ML/MIN/1.73 eGFR NON- AMER. (test code = 68637) 89 ML/MIN/1.73 CALC BUN/CREAT (test code = 2235) 18 RATIO SODIUM (test code = 2231) 136 MEQ/L POTASSIUM (test code = 2228) 4.5 MEQ/L CHLORIDE (test code = 2215) 100 MEQ/L CARBON DIOXIDE (test code = 2206) 27 MEQ/L CALCIUM (test code = 2209) 9.8 MG/DL PROTEIN, TOTAL (test code = 2229) 7.2 G/DL ALBUMIN (test code = 2201) 4.4 G/DL CALC GLOBULIN (test code = 2240) 2.8 G/DL CALC A/G RATIO (test code = 2234) 1.6 RATIO BILIRUBIN, TOTAL (test code = 2207) 0.7 MG/DL ALKALINE PHOSPHATASE (test code = 2204) 77 U/L AST (test code = 2218) 22 U/L ALT (test code = 2219) 22 U/L LIPID [id number] 00:00:00* Test Item Value Reference Range Interpretation Comme nts CHOLESTEROL (test code = 2210) 225 MG/DL TRIGLYCERIDES (test code = 2232) 94 MG/DL HDL CHOLESTEROL (test code = 2220) 51 MG/DL CALC LDL CHOL (test code = 2237) 154 MG/DL RISK RATIO LDL/HDL (test cod e = 2238) 3.02 RATIO COMPREHENSIVE METABOLIC [id number] 00:00:00* Test Item Value Reference Range Interpretation Comme nts GLUCOSE (test code = 2217) 86 MG/DL BUN (test code = 2208) 11 MG/DL CREATININE (test code = 2214) 0.61 MG/DL eGFR AMER. (test cod e = 16049) 104 ML/MIN/1.73 eGFR NON- AMER. (test code = 95114) 89 ML/MIN/1.73 CALC BUN/CREAT (test code = 2235) 18 RATIO SODIUM (test code = 2231) 136 MEQ/L POTASSIUM (test code = 2228) 4.5 MEQ/L CHLORIDE (test code = 2215) 100 MEQ/L CARBON DIOXIDE (test code = 2206) 27 MEQ/L CALCIUM (test code = 2209) 9.8 MG/DL PROTEIN, TOTAL (test code = 2229) 7.2 G/DL ALBUMIN (test code = 2201) 4.4 G/DL CALC GLOBULIN (test code = 2240) 2.8 G/DL CALC A/G RATIO (test code = 2234) 1.6 RATIO BILIRUBIN, TOTAL (test code = 2207) 0.7 MG/DL ALKALINE PHOSPHATASE (test code = 2204) 77 U/L AST (test code = 2218) 22 U/L ALT (test code = 2219) 22 U/L HEMOGLOBIN [id number] 00:00:00* Test Item Value Reference Range Interpretation Comme nts HEMOGLOBIN A1c (test code = 33972) 5.7 % HEMOGLOBIN [id number] 00:00:00* Test Item Value Reference Range Interpretation Comme nts HEMOGLOBIN A1c (test code = 41786) 5.7 % HEMOGLOBIN [id number] 00:00:00* Test Item Value Reference Range Interpretation Comme nts HEMOGLOBIN A1c (test code = 17443) 5.7 % [id number] 00:00:00* Test Item Value Reference Range Interpretation Comme nts TSH, THIRD GENERATION (test code = 2821) 0.696 UIU/ML [id number] 00:00:00* Test Item Value Reference Range Interpretation Comme nts TSH, THIRD GENERATION (test code = 2821) 0.696 UIU/ML [id number] 00:00:00* Test Item Value Reference Range Interpretation Comme nts TSH, THIRD GENERATION (test code = 2821) 0.696 UIU/ML HEMOGLOBIN [id number] 00:00:00* Test Item Value Reference Range Interpretation Comme nts HEMOGLOBIN A1c (test code = 30545) 5.7 % HEMOGLOBIN [id number] 00:00:00* Test Item Value Reference Range Interpretation Comme nts HEMOGLOBIN A1c (test code = 01290) 5.7 % HEMOGLOBIN [id number] 00:00:00* Test Item Value Reference Range Interpretation Comme nts HEMOGLOBIN A1c (test code = 14275) 5.7 % [id number] 00:00:00* Test Item Value Reference Range Interpretation Comme nts TSH, THIRD GENERATION (test code = 2821) 0.696 UIU/ML [id number] 00:00:00* Test Item Value Reference Range Interpretation Comme nts TSH, THIRD GENERATION (test code = 2821) 0.696 UIU/ML [id number] 00:00:00* Test Item Value Reference Range Interpretation Comme nts TSH, THIRD GENERATION (test code = 2821) 0.696 UIU/ML HEMOGLOBIN [id number] 00:00:00* Test Item Value Reference Range Interpretation Comme nts HEMOGLOBIN A1c (test code = 80374) 5.7 % HEMOGLOBIN [id number] 00:00:00* Test Item Value Reference Range Interpretation Comme nts HEMOGLOBIN A1c (test code = 76433) 5.7 % [id number] 00:00:00* Test Item Value Reference Range Interpretation Comme nts TSH, THIRD GENERATION (test code = 2821) 0.696 UIU/ML [id number] 00:00:00* Test Item Value Reference Range Interpretation Comme nts TSH, THIRD GENERATION (test code = 2821) 0.696 UIU/ML COMPREHENSIVE METABOLIC [id number] 00:00:00* Test Item Value Reference Range Interpretation Comme nts GLUCOSE (test code = 2217) 99 MG/DL BUN (test code = 2208) 14 MG/DL CREATININE (test code = 2214) 0.55 MG/DL eGFR AMER. (test cod e = 79627) 107 ML/MIN/1.73 eGFR NON- AMER. (test code = 38211) 92 ML/MIN/1.73 CALC BUN/CREAT (test code = 2235) 25 RATIO SODIUM (test code = 2231) 141 MEQ/L POTASSIUM (test code = 2228) 4.3 MEQ/L CHLORIDE (test code = 2215) 104 MEQ/L CARBON DIOXIDE (test code = 2206) 27 MEQ/L CALCIUM (test code = 2209) 10.3 MG/DL PROTEIN, TOTAL (test code = 2229) 7.7 G/DL ALBUMIN (test code = 2201) 4.6 G/DL CALC GLOBULIN (test code = 2240) 3.1 G/DL CALC A/G RATIO (test code = 2234) 1.5 RATIO BILIRUBIN, TOTAL (test code = 2207) <0.2 MG/DL ALKALINE PHOSPHATASE (test code = 2204) 72 U/L AST (test code = 2218) 22 U/L ALT (test code = 2219) 21 U/L COMPREHENSIVE METABOLIC [id number] 00:00:00* Test Item Value Reference Range Interpretation Comme nts GLUCOSE (test code = 2217) 99 MG/DL BUN (test code = 2208) 14 MG/DL CREATININE (test code = 2214) 0.55 MG/DL eGFR AMER. (test cod e = 66785) 107 ML/MIN/1.73 eGFR NON- AMER. (test code = 34562) 92 ML/MIN/1.73 CALC BUN/CREAT (test code = 2235) 25 RATIO SODIUM (test code = 2231) 141 MEQ/L POTASSIUM (test code = 2228) 4.3 MEQ/L CHLORIDE (test code = 2215) 104 MEQ/L CARBON DIOXIDE (test code = 2206) 27 MEQ/L CALCIUM (test code = 2209) 10.3 MG/DL PROTEIN, TOTAL (test code = 2229) 7.7 G/DL ALBUMIN (test code = 2201) 4.6 G/DL CALC GLOBULIN (test code = 2240) 3.1 G/DL CALC A/G RATIO (test code = 2234) 1.5 RATIO BILIRUBIN, TOTAL (test code = 2207) <0.2 MG/DL ALKALINE PHOSPHATASE (test code = 2204) 72 U/L AST (test code = 2218) 22 U/L ALT (test code = 2219) 21 U/L [id number] 00:00:00* Test Item Value Reference Range Interpretation Comme nts TSH, THIRD GENERATION (test code = 2821) 0.109 UIU/ML [id number] 00:00:00* Test Item Value Reference Range Interpretation Comme nts TSH, THIRD GENERATION (test code = 2821) 0.109 UIU/ML [id number] 00:00:00* Test Item Value Reference Range Interpretation Comme nts TSH, THIRD GENERATION (test code = 2821) 0.109 UIU/ML COMPREHENSIVE METABOLIC [id number] 00:00:00* Test Item Value Reference Range Interpretation Comme nts GLUCOSE (test code = 2217) 99 MG/DL BUN (test code = 2208) 14 MG/DL CREATININE (test code = 2214) 0.55 MG/DL eGFR AMER. (test cod e = 71254) 107 ML/MIN/1.73 eGFR NON- AMER. (test code = 43601) 92 ML/MIN/1.73 CALC BUN/CREAT (test code = 2235) 25 RATIO SODIUM (test code = 2231) 141 MEQ/L POTASSIUM (test code = 2228) 4.3 MEQ/L CHLORIDE (test code = 2215) 104 MEQ/L CARBON DIOXIDE (test code = 2206) 27 MEQ/L CALCIUM (test code = 2209) 10.3 MG/DL PROTEIN, TOTAL (test code = 2229) 7.7 G/DL ALBUMIN (test code = 2201) 4.6 G/DL CALC GLOBULIN (test code = 2240) 3.1 G/DL CALC A/G RATIO (test code = 2234) 1.5 RATIO BILIRUBIN, TOTAL (test code = 2207) <0.2 MG/DL ALKALINE PHOSPHATASE (test code = 2204) 72 U/L AST (test code = 2218) 22 U/L ALT (test code = 2219) 21 U/L COMPREHENSIVE METABOLIC [id number] 00:00:00* Test Item Value Reference Range Interpretation Comme nts GLUCOSE (test code = 2217) 99 MG/DL BUN (test code = 2208) 14 MG/DL CREATININE (test code = 2214) 0.55 MG/DL eGFR AMER. (test cod e = 46516) 107 ML/MIN/1.73 eGFR NON- AMER. (test code = 75034) 92 ML/MIN/1.73 CALC BUN/CREAT (test code = 2235) 25 RATIO SODIUM (test code = 2231) 141 MEQ/L POTASSIUM (test code = 2228) 4.3 MEQ/L CHLORIDE (test code = 2215) 104 MEQ/L CARBON DIOXIDE (test code = 2206) 27 MEQ/L CALCIUM (test code = 2209) 10.3 MG/DL PROTEIN, TOTAL (test code = 2229) 7.7 G/DL ALBUMIN (test code = 2201) 4.6 G/DL CALC GLOBULIN (test code = 2240) 3.1 G/DL CALC A/G RATIO (test code = 2234) 1.5 RATIO BILIRUBIN, TOTAL (test code = 2207) <0.2 MG/DL ALKALINE PHOSPHATASE (test code = 2204) 72 U/L AST (test code = 2218) 22 U/L ALT (test code = 2219) 21 U/L [id number] 00:00:00* Test Item Value Reference Range Interpretation Comme nts TSH, THIRD GENERATION (test code = 2821) 0.109 UIU/ML [id number] 00:00:00* Test Item Value Reference Range Interpretation Comme nts TSH, THIRD GENERATION (test code = 2821) 0.109 UIU/ML [id number] 00:00:00* Test Item Value Reference Range Interpretation Comme nts TSH, THIRD GENERATION (test code = 2821) 0.109 UIU/ML COMPREHENSIVE METABOLIC [id number] 00:00:00* Test Item Value Reference Range Interpretation Comme nts GLUCOSE (test code = 2217) 99 MG/DL BUN (test code = 2208) 14 MG/DL CREATININE (test code = 2214) 0.55 MG/DL eGFR AMER. (test cod e = 25052) 107 ML/MIN/1.73 eGFR NON- AMER. (test code = 68832) 92 ML/MIN/1.73 CALC BUN/CREAT (test code = 2235) 25 RATIO SODIUM (test code = 2231) 141 MEQ/L POTASSIUM (test code = 2228) 4.3 MEQ/L CHLORIDE (test code = 2215) 104 MEQ/L CARBON DIOXIDE (test code = 2206) 27 MEQ/L CALCIUM (test code = 2209) 10.3 MG/DL PROTEIN, TOTAL (test code = 2229) 7.7 G/DL ALBUMIN (test code = 2201) 4.6 G/DL CALC GLOBULIN (test code = 2240) 3.1 G/DL CALC A/G RATIO (test code = 2234) 1.5 RATIO BILIRUBIN, TOTAL (test code = 2207) <0.2 MG/DL ALKALINE PHOSPHATASE (test code = 2204) 72 U/L AST (test code = 2218) 22 U/L ALT (test code = 2219) 21 U/L [id number] 00:00:00* Test Item Value Reference Range Interpretation Comme nts TSH, THIRD GENERATION (test code = 2821) 0.109 UIU/ML [id number] 00:00:00* Test Item Value Reference Range Interpretation Comme nts TSH, THIRD GENERATION (test code = 2821) 0.109 UIU/ML [id number] 00:00:00* Test Item Value Reference Range Interpretation Comme nts TSH, THIRD GENERATION (test code = 2821) 0.669 UIU/ML [id number] 00:00:00* Test Item Value Reference Range Interpretation Comme nts TSH, THIRD GENERATION (test code = 2821) 0.669 UIU/ML HEMOGLOBIN [id number] 00:00:00* Test Item Value Reference Range Interpretation Comme nts HEMOGLOBIN A1c (test code = 99823) 5.8 % HEMOGLOBIN [id number] 00:00:00* Test Item Value Reference Range Interpretation Comme nts HEMOGLOBIN A1c (test code = 52994) 5.8 % HEMOGLOBIN [id number] 00:00:00* Test Item Value Reference Range Interpretation Comme nts HEMOGLOBIN A1c (test code = 96320) 5.8 % LIPID [id number] 00:00:00* Test Item Value Reference Range Interpretation Comme nts CHOLESTEROL (test code = 2210) 177 MG/DL TRIGLYCERIDES (test code = 2232) 231 MG/DL HDL CHOLESTEROL (test code = 2220) 54 MG/DL CALC LDL CHOL (test code = 2237) 91 MG/DL RISK RATIO LDL/HDL (test cod e = 2238) 1.69 RATIO LIPID [id number] 00:00:00* Test Item Value Reference Range Interpretation Comme nts CHOLESTEROL (test code = 2210) 177 MG/DL TRIGLYCERIDES (test code = 2232) 231 MG/DL HDL CHOLESTEROL (test code = 2220) 54 MG/DL CALC LDL CHOL (test code = 2237) 91 MG/DL RISK RATIO LDL/HDL (test cod e = 2238) 1.69 RATIO COMPREHENSIVE METABOLIC [id number] 00:00:00* Test Item Value Reference Range Interpretation Comme nts GLUCOSE (test code = 2217) 92 MG/DL BUN (test code = 2208) 17 MG/DL CREATININE (test code = 2214) 0.71 MG/DL eGFR AMER. (test cod e = 35520) 98 ML/MIN/1.73 eGFR NON- AMER. (test code = 57514) 84 ML/MIN/1.73 CALC BUN/CREAT (test code = 2235) 24 RATIO SODIUM (test code = 2231) 139 MEQ/L POTASSIUM (test code = 2228) 4.4 MEQ/L CHLORIDE (test code = 2215) 104 MEQ/L CARBON DIOXIDE (test code = 2206) 23 MEQ/L CALCIUM (test code = 2209) 10.0 MG/DL PROTEIN, TOTAL (test code = 2229) 7.3 G/DL ALBUMIN (test code = 2201) 4.5 G/DL CALC GLOBULIN (test code = 2240) 2.8 G/DL CALC A/G RATIO (test code = 2234) 1.6 RATIO BILIRUBIN, TOTAL (test code = 2207) <0.2 MG/DL ALKALINE PHOSPHATASE (test code = 2204) 73 U/L AST (test code = 2218) 21 U/L ALT (test code = 2219) 19 U/L COMPREHENSIVE METABOLIC [id number] 00:00:00* Test Item Value Reference Range Interpretation Comme nts GLUCOSE (test code = 2217) 92 MG/DL BUN (test code = 2208) 17 MG/DL CREATININE (test code = 2214) 0.71 MG/DL eGFR AMER. (test cod e = 32578) 98 ML/MIN/1.73 eGFR NON- AMER. (test code = 08701) 84 ML/MIN/1.73 CALC BUN/CREAT (test code = 2235) 24 RATIO SODIUM (test code = 2231) 139 MEQ/L POTASSIUM (test code = 2228) 4.4 MEQ/L CHLORIDE (test code = 2215) 104 MEQ/L CARBON DIOXIDE (test code = 2206) 23 MEQ/L CALCIUM (test code = 2209) 10.0 MG/DL PROTEIN, TOTAL (test code = 2229) 7.3 G/DL ALBUMIN (test code = 2201) 4.5 G/DL CALC GLOBULIN (test code = 2240) 2.8 G/DL CALC A/G RATIO (test code = 2234) 1.6 RATIO BILIRUBIN, TOTAL (test code = 2207) <0.2 MG/DL ALKALINE PHOSPHATASE (test code = 2204) 73 U/L AST (test code = 2218) 21 U/L ALT (test code = 2219) 19 U/L [id number] 00:00:00* Test Item Value Reference Range Interpretation Comme nts TSH, THIRD GENERATION (test code = 2821) 0.669 UIU/ML [id number] 00:00:00* Test Item Value Reference Range Interpretation Comme nts TSH, THIRD GENERATION (test code = 2821) 0.669 UIU/ML [id number] 00:00:00* Test Item Value Reference Range Interpretation Comme nts TSH, THIRD GENERATION (test code = 2821) 0.669 UIU/ML HEMOGLOBIN [id number] 00:00:00* Test Item Value Reference Range Interpretation Comme nts HEMOGLOBIN A1c (test code = 91635) 5.8 % HEMOGLOBIN [id number] 00:00:00* Test Item Value Reference Range Interpretation Comme nts HEMOGLOBIN A1c (test code = 26030) 5.8 % HEMOGLOBIN [id number] 00:00:00* Test Item Value Reference Range Interpretation Comme nts HEMOGLOBIN A1c (test code = 51230) 5.8 % LIPID [id number] 00:00:00* Test Item Value Reference Range Interpretation Comme nts CHOLESTEROL (test code = 2210) 177 MG/DL TRIGLYCERIDES (test code = 2232) 231 MG/DL HDL CHOLESTEROL (test code = 2220) 54 MG/DL CALC LDL CHOL (test code = 2237) 91 MG/DL RISK RATIO LDL/HDL (test cod e = 2238) 1.69 RATIO LIPID [id number] 00:00:00* Test Item Value Reference Range Interpretation Comme nts CHOLESTEROL (test code = 2210) 177 MG/DL TRIGLYCERIDES (test code = 2232) 231 MG/DL HDL CHOLESTEROL (test code = 2220) 54 MG/DL CALC LDL CHOL (test code = 2237) 91 MG/DL RISK RATIO LDL/HDL (test cod e = 2238) 1.69 RATIO COMPREHENSIVE METABOLIC [id number] 00:00:00* Test Item Value Reference Range Interpretation Comme nts GLUCOSE (test code = 2217) 92 MG/DL BUN (test code = 2208) 17 MG/DL CREATININE (test code = 2214) 0.71 MG/DL eGFR AMER. (test cod e = 06801) 98 ML/MIN/1.73 eGFR NON- AMER. (test code = 85776) 84 ML/MIN/1.73 CALC BUN/CREAT (test code = 2235) 24 RATIO SODIUM (test code = 2231) 139 MEQ/L POTASSIUM (test code = 2228) 4.4 MEQ/L CHLORIDE (test code = 2215) 104 MEQ/L CARBON DIOXIDE (test code = 2206) 23 MEQ/L CALCIUM (test code = 2209) 10.0 MG/DL PROTEIN, TOTAL (test code = 2229) 7.3 G/DL ALBUMIN (test code = 2201) 4.5 G/DL CALC GLOBULIN (test code = 2240) 2.8 G/DL CALC A/G RATIO (test code = 2234) 1.6 RATIO BILIRUBIN, TOTAL (test code = 2207) <0.2 MG/DL ALKALINE PHOSPHATASE (test code = 2204) 73 U/L AST (test code = 2218) 21 U/L ALT (test code = 2219) 19 U/L COMPREHENSIVE METABOLIC [id number] 00:00:00* Test Item Value Reference Range Interpretation Comme nts GLUCOSE (test code = 2217) 92 MG/DL BUN (test code = 2208) 17 MG/DL CREATININE (test code = 2214) 0.71 MG/DL eGFR AMER. (test cod e = 03659) 98 ML/MIN/1.73 eGFR NON- AMER. (test code = 80926) 84 ML/MIN/1.73 CALC BUN/CREAT (test code = 2235) 24 RATIO SODIUM (test code = 2231) 139 MEQ/L POTASSIUM (test code = 2228) 4.4 MEQ/L CHLORIDE (test code = 2215) 104 MEQ/L CARBON DIOXIDE (test code = 2206) 23 MEQ/L CALCIUM (test code = 2209) 10.0 MG/DL PROTEIN, TOTAL (test code = 2229) 7.3 G/DL ALBUMIN (test code = 2201) 4.5 G/DL CALC GLOBULIN (test code = 2240) 2.8 G/DL CALC A/G RATIO (test code = 2234) 1.6 RATIO BILIRUBIN, TOTAL (test code = 2207) <0.2 MG/DL ALKALINE PHOSPHATASE (test code = 2204) 73 U/L AST (test code = 2218) 21 U/L ALT (test code = 2219) 19 U/L [id number] 00:00:00* Test Item Value Reference Range Interpretation Comme nts TSH, THIRD GENERATION (test code = 2821) 0.669 UIU/ML [id number] 00:00:00* Test Item Value Reference Range Interpretation Comme nts TSH, THIRD GENERATION (test code = 2821) 0.669 UIU/ML [id number] 00:00:00* Test Item Value Reference Range Interpretation Comme nts TSH, THIRD GENERATION (test code = 2821) 0.669 UIU/ML HEMOGLOBIN [id number] 00:00:00* Test Item Value Reference Range Interpretation Comme nts HEMOGLOBIN A1c (test code = 01747) 5.8 % HEMOGLOBIN [id number] 00:00:00* Test Item Value Reference Range Interpretation Comme nts HEMOGLOBIN A1c (test code = 06011) 5.8 % LIPID [id number] 00:00:00* Test Item Value Reference Range Interpretation Comme nts CHOLESTEROL (test code = 2210) 177 MG/DL TRIGLYCERIDES (test code = 2232) 231 MG/DL HDL CHOLESTEROL (test code = 2220) 54 MG/DL CALC LDL CHOL (test code = 2237) 91 MG/DL RISK RATIO LDL/HDL (test cod e = 2238) 1.69 RATIO COMPREHENSIVE METABOLIC [id number] 00:00:00* Test Item Value Reference Range Interpretation Comme nts GLUCOSE (test code = 2217) 92 MG/DL BUN (test code = 2208) 17 MG/DL CREATININE (test code = 2214) 0.71 MG/DL eGFR AMER. (test cod e = 26494) 98 ML/MIN/1.73 eGFR NON- AMER. (test code = 89095) 84 ML/MIN/1.73 CALC BUN/CREAT (test code = 2235) 24 RATIO SODIUM (test code = 2231) 139 MEQ/L POTASSIUM (test code = 2228) 4.4 MEQ/L CHLORIDE (test code = 2215) 104 MEQ/L CARBON DIOXIDE (test code = 2206) 23 MEQ/L CALCIUM (test code = 2209) 10.0 MG/DL PROTEIN, TOTAL (test code = 2229) 7.3 G/DL ALBUMIN (test code = 2201) 4.5 G/DL CALC GLOBULIN (test code = 2240) 2.8 G/DL CALC A/G RATIO (test code = 2234) 1.6 RATIO BILIRUBIN, TOTAL (test code = 2207) <0.2 MG/DL ALKALINE PHOSPHATASE (test code = 2204) 73 U/L AST (test code = 2218) 21 U/L ALT (test code = 2219) 19 U/L HEMOGLOBIN [id number] 00:00:00* Test Item Value Reference Range Interpretation Comme nts HEMOGLOBIN A1c (test code = 15854) 5.8 % HEMOGLOBIN [id number] 00:00:00* Test Item Value Reference Range Interpretation Comme nts HEMOGLOBIN A1c (test code = 44693) 5.8 % [id number] 00:00:00* Test Item Value Reference Range Interpretation Comme nts TSH, THIRD GENERATION (test code = 2821) 1.060 UIU/ML [id number] 00:00:00* Test Item Value Reference Range Interpretation Comme nts TSH, THIRD GENERATION (test code = 2821) 1.060 UIU/ML [id number] 00:00:00* Test Item Value Reference Range Interpretation Comme nts TSH, THIRD GENERATION (test code = 2821) 1.060 UIU/ML LIPID [id number] 00:00:00* Test Item Value Reference Range Interpretation Comme nts CHOLESTEROL (test code = 2210) 184 MG/DL TRIGLYCERIDES (test code = 2232) 114 MG/DL HDL CHOLESTEROL (test code = 2220) 59 MG/DL CALC LDL CHOL (test code = 2237) 102 MG/DL RISK RATIO LDL/HDL (test cod e = 2238) 1.73 RATIO LIPID [id number] 00:00:00* Test Item Value Reference Range Interpretation Comme nts CHOLESTEROL (test code = 2210) 184 MG/DL TRIGLYCERIDES (test code = 2232) 114 MG/DL HDL CHOLESTEROL (test code = 2220) 59 MG/DL CALC LDL CHOL (test code = 2237) 102 MG/DL RISK RATIO LDL/HDL (test cod e = 2238) 1.73 RATIO HEMOGLOBIN [id number] 00:00:00* Test Item Value Reference Range Interpretation Comme nts HEMOGLOBIN A1c (test code = 36951) 5.8 % HEMOGLOBIN [id number] 00:00:00* Test Item Value Reference Range Interpretation Comme nts HEMOGLOBIN A1c (test code = 61905) 5.8 % HEMOGLOBIN [id number] 00:00:00* Test Item Value Reference Range Interpretation Comme nts HEMOGLOBIN A1c (test code = 69381) 5.8 % [id number] 00:00:00* Test Item Value Reference Range Interpretation Comme nts TSH, THIRD GENERATION (test code = 2821) 1.060 UIU/ML [id number] 00:00:00* Test Item Value Reference Range Interpretation Comme nts TSH, THIRD GENERATION (test code = 2821) 1.060 UIU/ML [id number] 00:00:00* Test Item Value Reference Range Interpretation Comme nts TSH, THIRD GENERATION (test code = 2821) 1.060 UIU/ML LIPID [id number] 00:00:00* Test Item Value Reference Range Interpretation Comme nts CHOLESTEROL (test code = 2210) 184 MG/DL TRIGLYCERIDES (test code = 2232) 114 MG/DL HDL CHOLESTEROL (test code = 2220) 59 MG/DL CALC LDL CHOL (test code = 2237) 102 MG/DL RISK RATIO LDL/HDL (test cod e = 2238) 1.73 RATIO LIPID [id number] 00:00:00* Test Item Value Reference Range Interpretation Comme nts CHOLESTEROL (test code = 2210) 184 MG/DL TRIGLYCERIDES (test code = 2232) 114 MG/DL HDL CHOLESTEROL (test code = 2220) 59 MG/DL CALC LDL CHOL (test code = 2237) 102 MG/DL RISK RATIO LDL/HDL (test cod e = 2238) 1.73 RATIO HEMOGLOBIN [id number] 00:00:00* Test Item Value Reference Range Interpretation Comme nts HEMOGLOBIN A1c (test code = 03903) 5.8 % HEMOGLOBIN [id number] 00:00:00* Test Item Value Reference Range Interpretation Comme nts HEMOGLOBIN A1c (test code = 74813) 5.8 % HEMOGLOBIN [id number] 00:00:00* Test Item Value Reference Range Interpretation Comme nts HEMOGLOBIN A1c (test code = 28106) 5.8 % [id number] 00:00:00* Test Item Value Reference Range Interpretation Comme nts TSH, THIRD GENERATION (test code = 2821) 1.060 UIU/ML [id number] 00:00:00* Test Item Value Reference Range Interpretation Comme nts TSH, THIRD GENERATION (test code = 2821) 1.060 UIU/ML LIPID [id number] 00:00:00* Test Item Value Reference Range Interpretation Comme nts CHOLESTEROL (test code = 2210) 184 MG/DL TRIGLYCERIDES (test code = 2232) 114 MG/DL HDL CHOLESTEROL (test code = 2220) 59 MG/DL CALC LDL CHOL (test code = 2237) 102 MG/DL RISK RATIO LDL/HDL (test cod e = 2238) 1.73 RATIO [id number] 00:00:00* Test Item Value Reference Range Interpretation Comme nts TSH, THIRD GENERATION (test code = 2821) 0.730 UIU/ML [id number] 00:00:00* Test Item Value Reference Range Interpretation Comme nts TSH, THIRD GENERATION (test code = 2821) 0.730 UIU/ML [id number] 00:00:00* Test Item Value Reference Range Interpretation Comme nts TSH, THIRD GENERATION (test code = 2821) 0.730 UIU/ML LIPID PANEL [ADDED]2019-05-11 00:00:00* Test Item Value Reference Range Interpretation Comme nts CHOLESTEROL (test code = 2210) 212 MG/DL TRIGLYCERIDES (test code = 2232) 119 MG/DL HDL CHOLESTEROL (test code = 2220) 65 MG/DL CALC LDL CHOL (test code = 2237) 123 MG/DL RISK RATIO LDL/HDL (test cod e = 2238) 1.90 RATIO LIPID PANEL [ADDED]2019-05-11 00:00:00* Test Item Value Reference Range Interpretation Comme nts CHOLESTEROL (test code = 2210) 212 MG/DL TRIGLYCERIDES (test code = 2232) 119 MG/DL HDL CHOLESTEROL (test code = 2220) 65 MG/DL CALC LDL CHOL (test code = 2237) 123 MG/DL RISK RATIO LDL/HDL (test cod e = 2238) 1.90 RATIO [id number] 00:00:00* Test Item Value Reference Range Interpretation Comme nts TSH, THIRD GENERATION (test code = 2821) 0.730 UIU/ML [id number] 00:00:00* Test Item Value Reference Range Interpretation Comme nts TSH, THIRD GENERATION (test code = 2821) 0.730 UIU/ML [id number] 00:00:00* Test Item Value Reference Range Interpretation Comme nts TSH, THIRD GENERATION (test code = 2821) 0.730 UIU/ML LIPID PANEL [ADDED]2019-05-11 00:00:00* Test Item Value Reference Range Interpretation Comme nts CHOLESTEROL (test code = 2210) 212 MG/DL TRIGLYCERIDES (test code = 2232) 119 MG/DL HDL CHOLESTEROL (test code = 2220) 65 MG/DL CALC LDL CHOL (test code = 2237) 123 MG/DL RISK RATIO LDL/HDL (test cod e = 2238) 1.90 RATIO LIPID PANEL [ADDED]2019-05-11 00:00:00* Test Item Value Reference Range Interpretation Comme nts CHOLESTEROL (test code = 2210) 212 MG/DL TRIGLYCERIDES (test code = 2232) 119 MG/DL HDL CHOLESTEROL (test code = 2220) 65 MG/DL CALC LDL CHOL (test code = 2237) 123 MG/DL RISK RATIO LDL/HDL (test cod e = 2238) 1.90 RATIO [id number] 00:00:00* Test Item Value Reference Range Interpretation Comme nts TSH, THIRD GENERATION (test code = 2821) 0.730 UIU/ML [id number] 00:00:00* Test Item Value Reference Range Interpretation Comme nts TSH, THIRD GENERATION (test code = 2821) 0.730 UIU/ML LIPID PANEL [ADDED]2019-05-11 00:00:00* Test Item Value Reference Range Interpretation Comme nts CHOLESTEROL (test code = 2210) 212 MG/DL TRIGLYCERIDES (test code = 2232) 119 MG/DL HDL CHOLESTEROL (test code = 2220) 65 MG/DL CALC LDL CHOL (test code = 2237) 123 MG/DL RISK RATIO LDL/HDL (test cod e = 2238) 1.90 RATIO LIPID [id number] 00:00:00* Test Item Value Reference Range Interpretation Comme nts CHOLESTEROL (test code = 2210) 224 MG/DL TRIGLYCERIDES (test code = 2232) 93 MG/DL HDL CHOLESTEROL (test code = 2220) 62 MG/DL CALC LDL CHOL (test code = 2237) 143 MG/DL RISK RATIO LDL/HDL (test cod e = 2238) 2.31 RATIO LIPID [id number] 00:00:00* Test Item Value Reference Range Interpretation Comme nts CHOLESTEROL (test code = 2210) 224 MG/DL TRIGLYCERIDES (test code = 2232) 93 MG/DL HDL CHOLESTEROL (test code = 2220) 62 MG/DL CALC LDL CHOL (test code = 2237) 143 MG/DL RISK RATIO LDL/HDL (test cod e = 2238) 2.31 RATIO [id number] 00:00:00* Test Item Value Reference Range Interpretation Comme nts TSH, THIRD GENERATION (test code = 2821) 1.800 UIU/ML [id number] 00:00:00* Test Item Value Reference Range Interpretation Comme nts TSH, THIRD GENERATION (test code = 2821) 1.800 UIU/ML [id number] 00:00:00* Test Item Value Reference Range Interpretation Comme nts TSH, THIRD GENERATION (test code = 2821) 1.800 UIU/ML LIPID [id number] 00:00:00* Test Item Value Reference Range Interpretation Comme nts CHOLESTEROL (test code = 2210) 224 MG/DL TRIGLYCERIDES (test code = 2232) 93 MG/DL HDL CHOLESTEROL (test code = 2220) 62 MG/DL CALC LDL CHOL (test code = 2237) 143 MG/DL RISK RATIO LDL/HDL (test cod e = 2238) 2.31 RATIO LIPID [id number] 00:00:00* Test Item Value Reference Range Interpretation Comme nts CHOLESTEROL (test code = 2210) 224 MG/DL TRIGLYCERIDES (test code = 2232) 93 MG/DL HDL CHOLESTEROL (test code = 2220) 62 MG/DL CALC LDL CHOL (test code = 2237) 143 MG/DL RISK RATIO LDL/HDL (test cod e = 2238) 2.31 RATIO [id number] 00:00:00* Test Item Value Reference Range Interpretation Comme nts TSH, THIRD GENERATION (test code = 2821) 1.800 UIU/ML [id number] 00:00:00* Test Item Value Reference Range Interpretation Comme nts TSH, THIRD GENERATION (test code = 2821) 1.800 UIU/ML [id number] 00:00:00* Test Item Value Reference Range Interpretation Comme nts TSH, THIRD GENERATION (test code = 2821) 1.800 UIU/ML LIPID [id number] 00:00:00* Test Item Value Reference Range Interpretation Comme nts CHOLESTEROL (test code = 2210) 224 MG/DL TRIGLYCERIDES (test code = 2232) 93 MG/DL HDL CHOLESTEROL (test code = 2220) 62 MG/DL CALC LDL CHOL (test code = 2237) 143 MG/DL RISK RATIO LDL/HDL (test cod e = 2238) 2.31 RATIO [id number] 00:00:00* Test Item Value Reference Range Interpretation Comme nts TSH, THIRD GENERATION (test code = 2821) 1.800 UIU/ML [id number] 00:00:00* Test Item Value Reference Range Interpretation Comme nts TSH, THIRD GENERATION (test code = 2821) 1.800 UIU/ML [id number] 00:00:00* Test Item Value Reference Range Interpretation Comme nts TSH, THIRD GENERATION (test code = 2821) 4.790 UIU/ML [id number] 00:00:00* Test Item Value Reference Range Interpretation Comme nts TSH, THIRD GENERATION (test code = 2821) 4.790 UIU/ML [id number] 00:00:00* Test Item Value Reference Range Interpretation Comme nts TSH, THIRD GENERATION (test code = 2821) 4.790 UIU/ML LIPID PANEL [ADDED]2018-12-21 00:00:00* Test Item Value Reference Range Interpretation Comme nts CHOLESTEROL (test code = 2210) 149 MG/DL TRIGLYCERIDES (test code = 2232) 71 MG/DL HDL CHOLESTEROL (test code = 2220) 61 MG/DL CALC LDL CHOL (test code = 2237) 74 MG/DL RISK RATIO LDL/HDL (test cod e = 2238) 1.21 RATIO LIPID PANEL [ADDED]2018-12-21 00:00:00* Test Item Value Reference Range Interpretation Comme nts CHOLESTEROL (test code = 2210) 149 MG/DL TRIGLYCERIDES (test code = 2232) 71 MG/DL HDL CHOLESTEROL (test code = 2220) 61 MG/DL CALC LDL CHOL (test code = 2237) 74 MG/DL RISK RATIO LDL/HDL (test cod e = 2238) 1.21 RATIO [id number] 00:00:00* Test Item Value Reference Range Interpretation Comme nts TSH, THIRD GENERATION (test code = 2821) 4.790 UIU/ML [id number] 00:00:00* Test Item Value Reference Range Interpretation Comme nts TSH, THIRD GENERATION (test code = 2821) 4.790 UIU/ML [id number] 00:00:00* Test Item Value Reference Range Interpretation Comme nts TSH, THIRD GENERATION (test code = 2821) 4.790 UIU/ML LIPID PANEL [ADDED]2018-12-21 00:00:00* Test Item Value Reference Range Interpretation Comme nts CHOLESTEROL (test code = 2210) 149 MG/DL TRIGLYCERIDES (test code = 2232) 71 MG/DL HDL CHOLESTEROL (test code = 2220) 61 MG/DL CALC LDL CHOL (test code = 2237) 74 MG/DL RISK RATIO LDL/HDL (test cod e = 2238) 1.21 RATIO LIPID PANEL [ADDED]2018-12-21 00:00:00* Test Item Value Reference Range Interpretation Comme nts CHOLESTEROL (test code = 2210) 149 MG/DL TRIGLYCERIDES (test code = 2232) 71 MG/DL HDL CHOLESTEROL (test code = 2220) 61 MG/DL CALC LDL CHOL (test code = 2237) 74 MG/DL RISK RATIO LDL/HDL (test cod e = 2238) 1.21 RATIO [id number] 00:00:00* Test Item Value Reference Range Interpretation Comme nts TSH, THIRD GENERATION (test code = 2821) 4.790 UIU/ML [id number] 00:00:00* Test Item Value Reference Range Interpretation Comme nts TSH, THIRD GENERATION (test code = 2821) 4.790 UIU/ML LIPID PANEL [ADDED]2018-12-21 00:00:00* Test Item Value Reference Range Interpretation Comme nts CHOLESTEROL (test code = 2210) 149 MG/DL TRIGLYCERIDES (test code = 2232) 71 MG/DL HDL CHOLESTEROL (test code = 2220) 61 MG/DL CALC LDL CHOL (test code = 2237) 74 MG/DL RISK RATIO LDL/HDL (test cod e = 2238) 1.21 RATIO HEMOGLOBIN [id number] 00:00:00* Test Item Value Reference Range Interpretation Comme nts HEMOGLOBIN A1c (test code = 04373) 5.6 % [id number] 00:00:00* Test Item Value Reference Range Interpretation Comme nts TSH, THIRD GENERATION (test code = 2821) 0.443 UIU/ML [id number] 00:00:00* Test Item Value Reference Range Interpretation Comme nts TSH, THIRD GENERATION (test code = 2821) 0.443 UIU/ML ACUTE HEPATITIS [id number] 00:00:00* Test Item Value Reference Range Interpretation Comme nts HEPATITIS A IgM (test code = 50285) NON-REACTIVE HEPATITIS B CORE IgM (test c ode = 4644) NON-REACTIVE HEPATITIS B SURF AG (test co de = 2739) NON-REACTIVE HEPATITIS C ANTIBODY (test c ode = 4613) NON-REACTIVE INTERPRETATION HEPATITIS A: (test code = 2552) (NOTE) INTERPRETATION HEPATITIS B: (test code = 32985) (NOTE) INTERPRETATION HEPATITIS C: (test code = 80760) (NOTE) COMPREHENSIVE METABOLIC [id number] 00:00:00* Test Item Value Reference Range Interpretation Comme nts GLUCOSE (test code = 2217) 96 MG/DL BUN (test code = 2208) 12 MG/DL CREATININE (test code = 2214) 0.56 MG/DL eGFR AMER. (test cod e = 11254) 109 ML/MIN/1.73 eGFR NON- AMER. (test code = 62836) 94 ML/MIN/1.73 CALC BUN/CREAT (test code = 2235) 21 RATIO SODIUM (test code = 2231) 142 MEQ/L POTASSIUM (test code = 2228) 4.8 MEQ/L CHLORIDE (test code = 2215) 104 MEQ/L CARBON DIOXIDE (test code = 2206) 28 MEQ/L CALCIUM (test code = 2209) 10.1 MG/DL PROTEIN, TOTAL (test code = 2229) 7.3 G/DL ALBUMIN (test code = 2201) 4.5 G/DL CALC GLOBULIN (test code = 2240) 2.8 G/DL CALC A/G RATIO (test code = 2234) 1.6 RATIO BILIRUBIN, TOTAL (test code = 2207) 0.2 MG/DL ALKALINE PHOSPHATASE (test code = 2204) 78 U/L AST (test code = 2218) 19 U/L ALT (test code = 2219) 17 U/L COMPREHENSIVE METABOLIC [id number] 00:00:00* Test Item Value Reference Range Interpretation Comme nts GLUCOSE (test code = 2217) 96 MG/DL BUN (test code = 2208) 12 MG/DL CREATININE (test code = 2214) 0.56 MG/DL eGFR AMER. (test cod e = 68568) 109 ML/MIN/1.73 eGFR NON- AMER. (test code = 73090) 94 ML/MIN/1.73 CALC BUN/CREAT (test code = 2235) 21 RATIO SODIUM (test code = 2231) 142 MEQ/L POTASSIUM (test code = 2228) 4.8 MEQ/L CHLORIDE (test code = 2215) 104 MEQ/L CARBON DIOXIDE (test code = 2206) 28 MEQ/L CALCIUM (test code = 2209) 10.1 MG/DL PROTEIN, TOTAL (test code = 2229) 7.3 G/DL ALBUMIN (test code = 2201) 4.5 G/DL CALC GLOBULIN (test code = 2240) 2.8 G/DL CALC A/G RATIO (test code = 2234) 1.6 RATIO BILIRUBIN, TOTAL (test code = 2207) 0.2 MG/DL ALKALINE PHOSPHATASE (test code = 2204) 78 U/L AST (test code = 2218) 19 U/L ALT (test code = 2219) 17 U/L LIPID [id number] 00:00:00* Test Item Value Reference Range Interpretation Comme nts CHOLESTEROL (test code = 2210) 192 MG/DL TRIGLYCERIDES (test code = 2232) 101 MG/DL HDL CHOLESTEROL (test code = 2220) 65 MG/DL CALC LDL CHOL (test code = 2237) 107 MG/DL RISK RATIO LDL/HDL (test cod e = 2238) 1.64 RATIO LIPID [id number] 00:00:00* Test Item Value Reference Range Interpretation Comme nts CHOLESTEROL (test code = 2210) 192 MG/DL TRIGLYCERIDES (test code = 2232) 101 MG/DL HDL CHOLESTEROL (test code = 2220) 65 MG/DL CALC LDL CHOL (test code = 2237) 107 MG/DL RISK RATIO LDL/HDL (test cod e = 2238) 1.64 RATIO HEMOGLOBIN [id number] 00:00:00* Test Item Value Reference Range Interpretation Comme nts HEMOGLOBIN A1c (test code = 78351) 5.6 % HEMOGLOBIN [id number] 00:00:00* Test Item Value Reference Range Interpretation Comme nts HEMOGLOBIN A1c (test code = 21998) 5.6 % HEMOGLOBIN [id number] 00:00:00* Test Item Value Reference Range Interpretation Comme nts HEMOGLOBIN A1c (test code = 35844) 5.6 % [id number] 00:00:00* Test Item Value Reference Range Interpretation Comme nts TSH, THIRD GENERATION (test code = 2821) 0.443 UIU/ML [id number] 00:00:00* Test Item Value Reference Range Interpretation Comme nts TSH, THIRD GENERATION (test code = 2821) 0.443 UIU/ML [id number] 00:00:00* Test Item Value Reference Range Interpretation Comme nts TSH, THIRD GENERATION (test code = 2821) 0.443 UIU/ML ACUTE HEPATITIS [id number] 00:00:00* Test Item Value Reference Range Interpretation Comme nts HEPATITIS A IgM (test code = 41705) NON-REACTIVE HEPATITIS B CORE IgM (test c ode = 4644) NON-REACTIVE HEPATITIS B SURF AG (test co de = 2739) NON-REACTIVE HEPATITIS C ANTIBODY (test c ode = 4675) NON-REACTIVE INTERPRETATION HEPATITIS A: (test code = 2552) (NOTE) INTERPRETATION HEPATITIS B: (test code = 81085) (NOTE) INTERPRETATION HEPATITIS C: (test code = 23931) (NOTE) ACUTE HEPATITIS [id number] 00:00:00* Test Item Value Reference Range Interpretation Comme nts HEPATITIS A IgM (test code = 12765) NON-REACTIVE HEPATITIS B CORE IgM (test c ode = 4644) NON-REACTIVE HEPATITIS B SURF AG (test co de = 2739) NON-REACTIVE HEPATITIS C ANTIBODY (test c ode = 4675) NON-REACTIVE INTERPRETATION HEPATITIS A: (test code = 2552) (NOTE) INTERPRETATION HEPATITIS B: (test code = 12688) (NOTE) INTERPRETATION HEPATITIS C: (test code = 41116) (NOTE) COMPREHENSIVE METABOLIC [id number] 00:00:00* Test Item Value Reference Range Interpretation Comme nts GLUCOSE (test code = 2217) 96 MG/DL BUN (test code = 2208) 12 MG/DL CREATININE (test code = 2214) 0.56 MG/DL eGFR AMER. (test cod e = 59305) 109 ML/MIN/1.73 eGFR NON- AMER. (test code = 50431) 94 ML/MIN/1.73 CALC BUN/CREAT (test code = 2235) 21 RATIO SODIUM (test code = 2231) 142 MEQ/L POTASSIUM (test code = 2228) 4.8 MEQ/L CHLORIDE (test code = 2215) 104 MEQ/L CARBON DIOXIDE (test code = 2206) 28 MEQ/L CALCIUM (test code = 2209) 10.1 MG/DL PROTEIN, TOTAL (test code = 2229) 7.3 G/DL ALBUMIN (test code = 2201) 4.5 G/DL CALC GLOBULIN (test code = 2240) 2.8 G/DL CALC A/G RATIO (test code = 2234) 1.6 RATIO BILIRUBIN, TOTAL (test code = 2207) 0.2 MG/DL ALKALINE PHOSPHATASE (test code = 2204) 78 U/L AST (test code = 2218) 19 U/L ALT (test code = 2219) 17 U/L COMPREHENSIVE METABOLIC [id number] 00:00:00* Test Item Value Reference Range Interpretation Comme nts GLUCOSE (test code = 2217) 96 MG/DL BUN (test code = 2208) 12 MG/DL CREATININE (test code = 2214) 0.56 MG/DL eGFR AMER. (test cod e = 81871) 109 ML/MIN/1.73 eGFR NON- AMER. (test code = 08951) 94 ML/MIN/1.73 CALC BUN/CREAT (test code = 2235) 21 RATIO SODIUM (test code = 2231) 142 MEQ/L POTASSIUM (test code = 2228) 4.8 MEQ/L CHLORIDE (test code = 2215) 104 MEQ/L CARBON DIOXIDE (test code = 2206) 28 MEQ/L CALCIUM (test code = 2209) 10.1 MG/DL PROTEIN, TOTAL (test code = 2229) 7.3 G/DL ALBUMIN (test code = 2201) 4.5 G/DL CALC GLOBULIN (test code = 2240) 2.8 G/DL CALC A/G RATIO (test code = 2234) 1.6 RATIO BILIRUBIN, TOTAL (test code = 2207) 0.2 MG/DL ALKALINE PHOSPHATASE (test code = 2204) 78 U/L AST (test code = 2218) 19 U/L ALT (test code = 2219) 17 U/L LIPID [id number] 00:00:00* Test Item Value Reference Range Interpretation Comme nts CHOLESTEROL (test code = 2210) 192 MG/DL TRIGLYCERIDES (test code = 2232) 101 MG/DL HDL CHOLESTEROL (test code = 2220) 65 MG/DL CALC LDL CHOL (test code = 2237) 107 MG/DL RISK RATIO LDL/HDL (test cod e = 2238) 1.64 RATIO LIPID [id number] 00:00:00* Test Item Value Reference Range Interpretation Comme nts CHOLESTEROL (test code = 2210) 192 MG/DL TRIGLYCERIDES (test code = 2232) 101 MG/DL HDL CHOLESTEROL (test code = 2220) 65 MG/DL CALC LDL CHOL (test code = 2237) 107 MG/DL RISK RATIO LDL/HDL (test cod e = 2238) 1.64 RATIO HEMOGLOBIN [id number] 00:00:00* Test Item Value Reference Range Interpretation Comme nts HEMOGLOBIN A1c (test code = 77412) 5.6 % HEMOGLOBIN [id number] 00:00:00* Test Item Value Reference Range Interpretation Comme nts HEMOGLOBIN A1c (test code = 14855) 5.6 % HEMOGLOBIN [id number] 00:00:00* Test Item Value Reference Range Interpretation Comme nts HEMOGLOBIN A1c (test code = 30115) 5.6 % [id number] 00:00:00* Test Item Value Reference Range Interpretation Comme nts TSH, THIRD GENERATION (test code = 2821) 0.443 UIU/ML [id number] 00:00:00* Test Item Value Reference Range Interpretation Comme nts TSH, THIRD GENERATION (test code = 2821) 0.443 UIU/ML [id number] 00:00:00* Test Item Value Reference Range Interpretation Comme nts TSH, THIRD GENERATION (test code = 2821) 0.443 UIU/ML ACUTE HEPATITIS [id number] 00:00:00* Test Item Value Reference Range Interpretation Comme nts HEPATITIS A IgM (test code = 82496) NON-REACTIVE HEPATITIS B CORE IgM (test c ode = 4644) NON-REACTIVE HEPATITIS B SURF AG (test co de = 2739) NON-REACTIVE HEPATITIS C ANTIBODY (test c ode = 4675) NON-REACTIVE INTERPRETATION HEPATITIS A: (test code = 2552) (NOTE) INTERPRETATION HEPATITIS B: (test code = 06088) (NOTE) INTERPRETATION HEPATITIS C: (test code = 37749) (NOTE) ACUTE HEPATITIS [id number] 00:00:00* Test Item Value Reference Range Interpretation Comme nts HEPATITIS A IgM (test code = 43343) NON-REACTIVE HEPATITIS B CORE IgM (test c ode = 4644) NON-REACTIVE HEPATITIS B SURF AG (test co de = 2739) NON-REACTIVE HEPATITIS C ANTIBODY (test c ode = 4675) NON-REACTIVE INTERPRETATION HEPATITIS A: (test code = 2552) (NOTE) INTERPRETATION HEPATITIS B: (test code = 38723) (NOTE) INTERPRETATION HEPATITIS C: (test code = 65297) (NOTE) COMPREHENSIVE METABOLIC [id number] 00:00:00* Test Item Value Reference Range Interpretation Comme nts GLUCOSE (test code = 2217) 96 MG/DL BUN (test code = 2208) 12 MG/DL CREATININE (test code = 2214) 0.56 MG/DL eGFR AMER. (test cod e = 15326) 109 ML/MIN/1.73 eGFR NON- AMER. (test code = 37030) 94 ML/MIN/1.73 CALC BUN/CREAT (test code = 2235) 21 RATIO SODIUM (test code = 2231) 142 MEQ/L POTASSIUM (test code = 2228) 4.8 MEQ/L CHLORIDE (test code = 2215) 104 MEQ/L CARBON DIOXIDE (test code = 2206) 28 MEQ/L CALCIUM (test code = 2209) 10.1 MG/DL PROTEIN, TOTAL (test code = 2229) 7.3 G/DL ALBUMIN (test code = 2201) 4.5 G/DL CALC GLOBULIN (test code = 2240) 2.8 G/DL CALC A/G RATIO (test code = 2234) 1.6 RATIO BILIRUBIN, TOTAL (test code = 2207) 0.2 MG/DL ALKALINE PHOSPHATASE (test code = 2204) 78 U/L AST (test code = 2218) 19 U/L ALT (test code = 2219) 17 U/L LIPID [id number] 00:00:00* Test Item Value Reference Range Interpretation Comme nts CHOLESTEROL (test code = 2210) 192 MG/DL TRIGLYCERIDES (test code = 2232) 101 MG/DL HDL CHOLESTEROL (test code = 2220) 65 MG/DL CALC LDL CHOL (test code = 2237) 107 MG/DL RISK RATIO LDL/HDL (test cod e = 2238) 1.64 RATIO HEMOGLOBIN [id number] 00:00:00* Test Item Value Reference Range Interpretation Comme [facility] HEMOGLOBIN A1c (test code = 57708) 5.6 %
[2023-10-03 18:08] LABS: Absolute Lymphocytes (CBC) 2.1 K/uL (0.7-4.9); Hematocrit 35.9 % (36.0-45.0); Lymphocytes % 30.5 % (15.3-44.8); MCV 83.7 fL (80-100); MPV 8.3 fL (7.6-11.3); Platelets 359 thou/uL (152-406); RBC Red Blood Cell Count 4.29 M/uL (3.86-4.86)
[2023-10-03 18:23] LABS: Albumin 3.3 g/dL (3.4-5.0); Bilirubin Total 0.2 mg/dL (0.2-1.0); Potassium 3.5 mEq/L (3.5-5.1); Protein, Total 7.1 g/dL (6.4-8.2)
--- NOTE | 2023-10-03 20:13 | RAD REPORT ---
EXAM DESCRIPTION: CTAbdcat Angio - 10/03/2023 7:53 pm CLINICAL HISTORY: GI BLEED COMPARISON: Abdomen Pelvis W Contrast dated 01/06/2017 TECHNIQUE: CTA of the abdomen and pelvis was performed. MIP reconstructions of the aorta were create d. All CT scans are performed using dose optimization technique as appropriate and may include automated exposure control or mA/KV adjustment according to patient size. FINDINGS: Lower chest: No acute abnormality. Liver: No acute abnormality or suspicious lesions. Biliary: Borderline biliary duct dilatation measuring 7 mm. Stomach: No significant focal abnormality. Duodenum: No significant focal abnormality. Pancreas: No significant abnormality. Spleen: No significant abnormality. Adrenal: No suspicious lesions. Kidney/ureter: No hydronephrosis. No renal calculi. Retroperitoneum: No retroperitoneal adenopathy. Vascular: No aneurysm. Bowel: Normal appendix. Diverticulosis without diverticulitis. No evidence of active gastrointestinal bleeding.. Peritoneum: No ascites or free air. Bladder: Grossly unremarkable. Reproductive: No adnexal masses. Bones: No acute fracture. Multilevel degenerative changes are present in the spine. Other: n/a IMPRESSION: No acute intra-abdominal or pelvic finding. No evidence of active gastrointestinal bleed ing.
--- NOTE | 2023-10-03 20:22 | RAD REPORT ---
EXAM DESCRIPTION: CTPelvis Angio - 10/03/2023 8:17 pm CLINICAL HISTORY: GI BLEED COMPARISON: None TECHNIQUE: TECHNIQUE: CTA of the abdomen and pelvis was performed. MIP reconstructions of the aorta were created. All CT scans are performed using dose optimization technique as appropriate and may include automated exposure control or mA/KV adjustment according to patient size. FINDINGS: FINDINGS: Lower chest: No acute abnormality. Liver: No acute abnormality or suspicious lesions. Biliary: Borderline biliary duct dilatation measuring 7 mm. Stomach: No significant focal abnormality. Duodenum: No significant focal abnormality. Pancreas: No significant abnormality. Spleen: No significant abnormality. Adrenal: No suspicious lesions. Kidney/ureter: No hydronephrosis. No renal calculi. Retroperitoneum: No retroperitoneal adenopathy. Vascular: No aneurysm. Bowel: Normal appendix. Diverticulosis without diverticulitis. No evidence of active gastrointestinal bleeding.. Peritoneum: No ascites or free air. Bladder: Grossly unremarkable. Reproductive: No adnexal masses. Bones: No acute fracture. Multilevel degenerative changes are present in the spine. Other: n/a IMPRESSION: No acute intra-abdominal or pelvic finding. No evidence of active gastrointestinal bleeding.
--- NOTE | 2023-10-03 20:36 | EDPHYS ---
Physician Documentation [facility] Name: Celina Jutsice Age: 78 yrs Sex: Female : 1945 Arrival Date: 10/03/2023 Time: 17:19 Bed 20 Private MD: ED Physician David Lea HPI: 10/03 19:35 This 78 yrs old Female presents to ER via Wheelchair with complaints of Bloody gb1 Stools, Rectal Bleeding, Nausea. 19:35 78-year-old Czech-speaking female presents the emergency department with gb1 bloody stools, rectal bleeding and nausea. The bloody stools are bright red blood. She also states that she does have abdominal tenderness. She is a history of diabetes, hyperlipidemia and hypothyroidism.. Historical: - Allergies: 17:27 No Known Drug Allergies; iw - PMHx: 17:25 Hypothyroidism; iw 17:38 Hyperlipidemia; no longer takes medicine; Diabetes mellitus; no longer takes medicine; ll1 - Immunization history:: Adult Immunizations up to date. - Social history:: Smoking status: Patient denies any tobacco usage or history of. ROS: 19:35 Abdomen/GI: Positive for rectal bleeding, gb1 19:35 All other systems are negative, gb1 Exam: 19:35 Constitutional: This is a well developed, well nourished patient who is awake, alert, gb1 and in no acute distress. Head/Face: Normocephalic, atraumatic. Eyes: Pupils equal round and reactive to light, extra-ocular motions intact. Lids and lashes normal. Conjunctiva and sclera are non-icteric and not injected. Cornea within normal limits. Periorbital areas with no swelling, redness, or edema. ENT: Nares patent. No nasal discharge, no septal abnormalities noted. Tympanic membranes are normal and external auditory canals are clear. Oropharynx with no redness, swelling, or masses, exudates, or evidence of obstruction, uvula midline. Mucous membranes moist. Neck: Trachea midline, no thyromegaly or masses palpated, and no cervical lymphadenopathy. Supple, full range of motion without nuchal rigidity, or vertebral point tenderness. No Meningismus. Chest/axilla: Normal chest wall appearance and motion. Nontender with no deformity. No lesions are appreciated. Cardiovascular: Regular rate and rhythm with a normal S1 and S2. No gallops, murmurs, or rubs. Normal PMI, no JVD. No pulse deficits. Respiratory: Lungs have equal breath sounds bilaterally, clear to auscultation and percussion. No rales, rhonchi or wheezes noted. No increased work of breathing, no retractions or nasal flaring. Back: No spinal tenderness. No costovertebral tenderness. Full range of motion. Skin: Warm, dry with normal turgor. Normal color with no rashes, no lesions, and no evidence of cellulitis. MS/ Extremity: Pulses equal, no cyanosis. Neurovascular intact. Full, normal range of motion. Neuro: Awake and alert, GCS 15, oriented to person, place, time, and situation. Cranial nerves II-XII grossly intact. Motor strength 5/5 in all extremities. Sensory grossly intact. Cerebellar exam normal. Normal gait. 19:35 Abdomen/GI: Bowel sounds: normal, active, all quadrants, Palpation: abdomen is soft and non-tender, Rectal exam: is unremarkable, rectal tone normal, Stool: brown, 20:16 Abdomen/GI: Rectal exam: hemorrhoid(s), are not appreciated, swelling, is not beulah appreciated, tenderness, is not appreciated, repeat , no blood, no melena, no abd pain. Vital Signs: 17:31 BP 131 / 63 LA Supine (auto/); Pulse 72 MON; Resp 16 S; Temp 98.2(O); Pulse Ox 97% on ds4 R/A; 17:36 BP 131 / 63; Pulse 78; Resp 16; Temp 98; Pulse Ox 96% ; Pain 0/10; ll1 18:30 BP 114 / 70; Pulse 60; Resp 18; Pulse Ox 95% ; db 19:30 BP 122 / 57; Pulse 55; Resp 16 S; Pulse Ox 97% on R/A; jw7 20:30 BP 127 / 65; Pulse 53; Resp 16 S; Pulse Ox 95% on R/A; jw7 21:30 BP 110 / 53; Pulse 52; Resp 16 S; Pulse Ox 96% on R/A; jw7 22:21 BP 112 / 54; Pulse 52; Resp 16 S; Pulse Ox 97% on R/A; jw7 17:36 Pain Scale: Adult ll1 MDM: 17:38 Patient medically screened. gb1 19:35 Differential diagnosis: Acute GI bleed, anal fissure, hemorrhoid that acute external gb1 hemorrhoidal bleed, diverticular bleed versus acute diverticulitis. Data reviewed: vital signs, nurses notes. ED course: 78-year-old female with a concern for acute GI bleed. Patient's hemoglobin hematocrit are stable today. There is no active sign of bleeding and she has had no GI bleeding episodes here in the emergency department. She is pending a CTA of her abdomen and pelvis to rule out acute bleeding. I have turned the patient over to the oncoming physician at [address] scan read.. 10/03 17:29 Order name: CBC with Diff; Complete Time: 18:15 gb1 10/03 17:29 Order name: CMP; Complete Time: 19:10 gb1 10/03 17:29 Order name: Lipase; Complete Time: 19:10 gb10/03 17:29 Order name: Type And Screen; Complete Time: 19:17 gb1 10/03 17:29 Order name: Lactate w/ 2H reflex if indic.; Complete Time: 19:10 gb1 10/03 17:29 Order name: CT Abdomen - Angio gb1 10/03 19:54 Order name: Pelvis Angio EDOR 10/03 17:29 Order name: IV Saline Lock; Complete Time: 18:06 gb10/03 17:29 Order name: Labs collected and sent; Complete Time: 18:06 gb Administered Medications: 20:21 Drug: metroNIDAZOLE IVPB 500 mg 100 ml IVPB at 200 ml/hr once over 30 mins Volume: 100 jw7 ml; Route: IVPB; Rate: 200 ml/hr; Infused Over: 30 mins; Site: left forearm; 20:55 Follow up: Response: No adverse reaction; IV Status: Completed infusion; IV Intake: jw7 100ml 20:55 Drug: Ciprofloxacin IVPB 400 mg 200 ml IVPB once over 60 mins Volume: 200 ml; Route: jw7 IVPB; Infused Over: 60 mins; Site: left forearm; 22:21 Follow up: Response: No adverse reaction; IV Status: Completed infusion; IV Intake: jw7 200ml Disposition Summary: 10/03/23 20:36 Discharge Ordered Notes: Location: Home beulah Problem: new beulah Symptoms: have improved beulah Condition: Stable beulah Diagnosis - GI Bleed/ Gastrointestinal hemorrhage, unspecified - lower, stable beulah - Nausea beulah Followup: beulah - With: Private Physician - When: 2 - 3 days - Reason: Recheck today's complaints, Continuance of care, Re-evaluation by your physician Followup: beulah - With: Louis Flowers MD - When: 1 - 2 days - Reason: Recheck today's complaints, Re-evaluation by your physician Discharge Instructions: - Discharge Summary Sheet beulah - Gastrointestinal Bleeding beulah - Rectal Bleeding beulah - Rectal Bleeding, [id number] beulah - Lower Gastrointestinal Bleeding [facility] Forms: - Medication Reconciliation Form [facility] - Thank You Letter [facility] - Antibiotic Education beulah - Prescription Opioid Use beulah - Patient Portal Instructions beulah - Leadership Thank You Letter [facility] Prescriptions: - ondansetron 4 mg Oral Tablet,disintegrating - take 1 tablet ORAL route every 6-8 hours for 5 days; 20 tablet; Refills: 0, [facility] Product Selection Permitted - Cipro 250 mg Oral tablet - take 1 tablet ORAL route every 12 hours for 7 days; 14 tablet; Refills: 0, [facility] Product Selection Permitted - Colace 100 mg Oral Tablet - take 1 tablet ORAL route every 12 hours; 14 tablet; Refills: 0, Product [facility] Selection Permitted - Flagyl 500 mg Oral tablet - take 1 tablet ORAL route every 8 hours for 7 days; 30 tablet; Refills: 0, [facility] Product Selection Permitted Signatures: Dispatcher [employer] EDDavid Polanco MD MD cha Williams, Irene RN RAY iw Ej Han RN RN ll1 Shirley Ely RN RN jw7 Génesis Mckenzie MD MD gb1 Corrections: (The following items were deleted from the chart) 17: 17:25 Allergies: No Known Drug Allergies; 17:25 Allergies: Phenergan; 17:25 Allergies: sensitive to all narcotics; iw 17:25 PMHx: low iron (Hypothyroidism); iw 17:25 PMHx: Hyperlipidemia; [facility] 17:38 PMHx: Hypothyroidism; ll1 ll1
--- NOTE | 2023-10-03 20:36 | ER ---
Nurse's Notes [facility] Name: Celina Justice Age: 78 yrs Sex: Female : 1945 Arrival Date: 10/03/2023 Time: 17:19 Bed 20 Private MD: Diagnosis: GI Bleed/ Gastrointestinal hemorrhage, unspecified-lower, stable;Nausea Presentation: 10/03 17:26 Ebola Screen: Patient denies travel to an Ebola-affected area in the 21 days before iw illness onset. Initial Sepsis Screen: Does the patient meet any 2 criteria? No. Patient's initial sepsis screen is negative. Does the patient have a suspected source of infection? Yes: Acute abdominal pain. Risk Assessment: Do you want to hurt yourself or someone else? Patient reports no desire to harm self or others. 17:26 Method Of Arrival: Wheelchair iw 17:26 Acuity: MARGY 3 iw 17:36 Chief complaint: Patient states: The past week she has had constipation. Noticed red ll1 blood in stool and painful BM's the past 3 days. Some nausea. No known fever. Coronavirus screen: Client denies travel out of the [place] in the last 14 days. At this time, the client does not indicate any symptoms associated with coronavirus-19. Onset of symptoms was October 01, 2023. Triage Assessment: 17:26 General: Appears in no apparent distress. Behavior is calm, cooperative, appropriate ll1 for age. Pain: Denies pain. GI: Reports lower abdominal pain, upper abdominal pain, constipation, rectal bleeding, nausea. Historical: - Allergies: 17:27 No Known Drug Allergies; iw - PMHx: 17:25 Hypothyroidism; iw 17:38 Hyperlipidemia; no longer takes medicine; Diabetes mellitus; no longer takes medicine; ll1 - Immunization history:: Adult Immunizations up to date. - Social history:: Smoking status: Patient denies any tobacco usage or history of. Screenin:03 [facility] ED Fall Risk Assessment (Adult) History of falling in the last 3 months, db including since admission No falls in past 3 months (0 pts) Confusion or Disorientation No (0 pts) Intoxicated or Sedated No (0 pts) Impaired Gait No (0 pts) Mobility Assist Device Used No (0 pt) Altered Elimination No (0 pt) Score/Fall Risk Level 0 - 2 = Low Risk Oriented to surroundings, Maintained a safe environment. Abuse screen: Denies threats or abuse. Denies injuries from another. Nutritional screening: No deficits noted. Tuberculosis screening: No symptoms or risk factors identified. Assessment: 18:03 Reassessment: Patient appears in no apparent distress at this time. Patient and/or db family updated on plan of care and expected duration. Pain level reassessed. Patient is alert, oriented x 3, equal unlabored respirations, skin warm/dry/pink. General: Appears in no apparent distress. comfortable, Behavior is calm, cooperative. Neuro: Level of Consciousness is awake, alert, obeys commands, Oriented to person, place, time, situation. Respiratory: Airway is patent Respiratory effort is even, unlabored, Respiratory pattern is regular, symmetrical. 19:05 General: Appears in no apparent distress. comfortable, Behavior is calm, cooperative. jw7 19:05 Pain: Denies pain. Neuro: Level of Consciousness is awake, alert, obeys commands, jw7 Oriented to person, place, time, situation. Cardiovascular: Capillary refill < 3 seconds Clubbing of nail beds is absent JVD is absent Patient's skin is warm and dry. Respiratory: Airway is patent Trachea midline Respiratory effort is even, unlabored, Respiratory pattern is regular, symmetrical. GI: Abdomen is flat, non-distended, Bowel sounds present X 4 quads. : No deficits noted. No signs and/or symptoms were reported regarding the genitourinary system. EENT: No deficits noted. No signs and/or symptoms were reported regarding the EENT system. Derm: Skin is intact, is healthy with good turgor, Skin is dry, Skin is normal, Skin temperature is warm. Musculoskeletal: Circulation, motion, and sensation intact. Range of motion: intact in all extremities. 20:00 Reassessment: Patient appears in no apparent distress at this time. No changes from jw7 previously documented assessment. Patient and/or family updated on plan of care and expected duration. Pain level reassessed. Patient is alert, oriented x 3, equal unlabored respirations, skin warm/dry/pink. 20:44 General: discharge pending completion of IV antibiotics. jw7 21:00 Reassessment: Patient appears in no apparent distress at this time. No changes from jw7 previously documented assessment. Patient and/or family updated on plan of care and expected duration. Pain level reassessed. Patient is alert, oriented x 3, equal unlabored respirations, skin warm/dry/pink. 22:00 Reassessment: Patient appears in no apparent distress at this time. No changes from jw7 previously documented assessment. Patient and/or family updated on plan of care and expected duration. Pain level reassessed. Patient is alert, oriented x 3, equal unlabored respirations, skin warm/dry/pink. Vital Signs: 17:31 BP 131 / 63 LA Supine (auto/); Pulse 72 MON; Resp 16 S; Temp 98.2(O); Pulse Ox 97% on ds4 R/A; 17:36 BP 131 / 63; Pulse 78; Resp 16; Temp 98; Pulse Ox 96% ; Pain 0/10; ll1 18:30 BP 114 / 70; Pulse 60; Resp 18; Pulse Ox 95% ; db 19:30 BP 122 / 57; Pulse 55; Resp 16 S; Pulse Ox 97% on R/A; jw7 20:30 BP 127 / 65; Pulse 53; Resp 16 S; Pulse Ox 95% on R/A; jw7 21:30 BP 110 / 53; Pulse 52; Resp 16 S; Pulse Ox 96% on R/A; jw7 22:21 BP 112 / 54; Pulse 52; Resp 16 S; Pulse Ox 97% on R/A; jw7 17:36 Pain Scale: Adult ll1 ED Course: 17:23 Patient arrived in ED. im 17:24 Arm band placed on Patient placed in an exam room, on a stretcher. iw 17:26 Triage completed. iw 17:27 Génesis Mckenzie MD is Attending Physician. gb1 17:52 Inserted saline lock: 22 gauge in left antecubital area, using aseptic technique. Blood db collected. 18:02 Naima Lopes, RN is Primary Nurse. db 18:03 Patient has correct armband on for positive identification. Bed in low position. Call db light in reach. Side rails up X 1. 19:54 Pelvis Angio In Process Unspecified. EDMS 19:55 CT Abdomen - Angio In Process Unspecified. EDMS 20:05 Attending Physician role handed off by Génesis Mckenzie MD beulah 20:05 David Lea MD is Attending Physician. beulah 20:36 Louis Flowers MD is Referral Physician. beulah 22:18 No provider procedures requiring assistance completed. IV discontinued, intact, jw7 bleeding controlled, No redness/swelling at site. Pressure dressing applied. 22:19 Provided Education on: Discharge instructions and medications via full time staff interpreter: Tish jay #[id number]. Administered Medications: 20:21 Drug: metroNIDAZOLE IVPB 500 mg 100 ml IVPB at 200 ml/hr once over 30 mins Volume: 100 jw7 ml; Route: IVPB; Rate: 200 ml/hr; Infused Over: 30 mins; Site: left forearm; 20:55 Follow up: Response: No adverse reaction; IV Status: Completed infusion; IV Intake: jw7 100ml 20:55 Drug: Ciprofloxacin IVPB 400 mg 200 ml IVPB once over 60 mins Volume: 200 ml; Route: jw7 IVPB; Infused Over: 60 mins; Site: left forearm; 22:21 Follow up: Response: No adverse reaction; IV Status: Completed infusion; IV Intake: jw7 200ml Medication: 18:03 VIS not applicable for this client. db Intake: 20:55 IV: 100ml; Total: 100ml. jw7 22:21 IV: 200ml; Total: 300ml. jw7 Outcome: 20:36 Discharge ordered by . beulah 22:18 Discharged to home ambulatory, jw7 22:18 Condition: stable 22:18 Discharge instructions given to patient, Instructed on discharge instructions, follow up and referral plans. medication usage, Discharge instructions given via medical driver Tish #[id number] Demonstrated understanding of instructions, follow-up care, medications, Prescriptions given X 3, 22:22 Patient left the ED. jw7 Signatures: Dispatcher [employer] EDSC David Lea MD MD cha Williams, Irene, RN RN iw Homero Pillai ds4 Ej Han RN RN ll1 Shirley Ely RN RN jw7 Naima Lopes RN RN db Elif Amaya Gina, MD MD gb1 Corrections: (The following items were deleted from the chart) 17:26 17:25 Allergies: No Known Drug Allergies; iw 17:25 Allergies: Phenergan; [facility] 17:25 Allergies: sensitive to all narcotics; [facility] 17:25 PMHx: low iron (Hypothyroidism); [facility] 17 17:25 PMHx: Hyperlipidemia; iw ll1 17:39 17:38 PMHx: Hypothyroidism; ll1 ll1 20:57 19:08 Reassessment: Patient appears in no apparent distress at this time. No changes jw7 from previously documented assessment. Patient and/or family updated on plan of care and expected duration. Pain level reassessed. Patient is alert, oriented x 3, equal unlabored respirations, skin warm/dry/pink. jw7
[2023-10-04 02:29] VITALS: BP 112/54; TEMP 98; O2SAT 97
== END ==
LOC: ER 17:19
DX: K92.2 Gastrointestinal hemorrhage, unspecified (principal); R11.0 Nausea; E11.9 Type 2 diabetes mellitus without complications; E78.5 Hyperlipidemia, unspecified; E03.9 Hypothyroidism, unspecified
CPT/HCPCS: 36415; 72191; 74175; 80053; 83605; 83690; 85025; 86850; 86900; 86901; 96365; 96367; 99284; J0744; Q9967

== ENCOUNTER 2025-05-09 11:24 | Emergency (ER) | payer SELFPAY ==
--- OUTSIDE RECORDS SUMMARY | 2025-05-09 11:32 | XMS REPORT | Continuity of Care Document ---
Author Name Unknown Address [address] [place] [address] [facility] Address [address] [facility] [address] [place] [address] Care Team Providers Care Tester Regulator Name Role Phone Tejal Deleon Primary Care Physician Medications Ordered Medication Name Filled Medication Name Start Date Stop Date Current Medication? Ordering Clinician Indication Dosage Frequency Signature (SIG) Comments Components Source levothyroxi ne 75 mcg capsule 5 00:00: 00 Yes 1mcg Elmer Rangel levothyroxi ne 75 mcg capsule - 00:00: 00 Yes 1mcg Elmer Rangel TAKE 1 TABLET BY MOUTH EVERY 8 HOURS FOR 7 DAYS 1 00:00: 00 Yes Elmer Rangel TAKE 1 TABLET BY MOUTH EVERY 12 HOURS FOR 7 DAYS FOR INFECTIOUS PROCESS 10-04 00:00: 00 Yes Elmer Rangel TAKE 1 TABLET DAILY. 2022-09 0 00:00: 00 01-29 00:00 :00 No 75 Elmer Rangel TAKE 1 TABLET AT BEDTIME. 2022-09 0-06 00:00: 00 01-29 00:00 :00 No 81 Elmer Rangel TAKE 1 TABLET DAILY. 2022-09 0-06 00:00: 00 01-29 00:00 :00 No 75 Elmer Rangel TAKE 1 TABLET TWICE DAILY UNTIL FINISHED. 7- 00:00: 00 01-29 00:00 :00 No 500 Elmer Rangel TAKE 1 TABLET DAILY. 3-12 00:00: 00 01-29 00:00 :00 No 75 Elmer Rangel TAKE 1 TABLET DAILY. 2023-0 3-08 00:00: 00 01-29 00:00 :00 No 75 Elmer Rangel TAKE 1 TABLET DAILY. 2022-0 1-10 00:00: 00 01-29 00:00 :00 No 10 Elmer Rangel Dose Unknown 2021-0 8-02 00:00: 00 No Dose Unknown 2021-0 8-02 00:00: 00 No Dose Unknown 2021-0 8-02 00:00: 00 No Dose Unknown 0 8- 00:00: 00 Yes Elmer Rangel Dose Unknown 2021-0 7-15 00:00: 00 No Dose Unknown 0 7-15 00:00: 00 No Dose Unknown 0 7-15 00:00: 00 No Dose Unknown 0 7-15 00:00: 00 Yes Elmer Rangel Dose Unknown 0 7-11 00:00: 00 No Dose Unknown 0 7-11 00:00: 00 No Dose Unknown 0 7-11 00:00: 00 No Dose Unknown 0 7-11 00:00: 00 Yes Elmer Rangel levothyroxi ne 75 mcg tablet 2021-0 6-17 00:00: 00 Yes 1mcg Elmer Rangel Dose Unknown 0 6-17 00:00: 00 Yes Elmer Rangel Dose Unknown 0 6-17 00:00: 00 Yes Elmer Rangel levothyroxi ne 75 mcg tablet 2021-0 6-17 00:00: 00 No 1mcg Dose Unknown 2021-0 6-17 00:00: 00 No Dose Unknown 2021-0 6-17 00:00: 00 No levothyroxi ne 75 mcg tablet 2021-0 6-17 00:00: 00 No 1mcg Dose Unknown 2021-0 6-17 00:00: 00 No Dose Unknown 2021-0 6-17 00:00: 00 No levothyroxi ne 75 mcg tablet 2021-0 6-17 00:00: 00 No 1mcg Dose Unknown 2021-0 6-17 00:00: 00 No Dose Unknown 2021-0 6-17 00:00: 00 No levothyroxi ne 75 mcg tablet 2021-0 1-26 00:00: 00 Yes 1mcg Elmer Rangel levothyroxi ne 75 mcg tablet 1- 00:00: 00 No 1mcg levothyroxi ne 75 mcg tablet 1- 00:00: 00 No 1mcg levothyroxi ne 75 mcg tablet 10-20 00:00: 00 No 1mcg Dose Unknown 2020-09 2-16 00:00: 00 Yes Elmer Rangel atorvastati n 20 mg tablet 2020-09 2 00:00: 00 Yes 1mg Elmer Rangel Dose Unknown 2020-09 2- 00:00: 00 No atorvastati n 20 mg tablet 2020-09 2 00:00: 00 No 1mg Dose Unknown 2020-09 00:00: 00 No atorvastati n 20 mg tablet 2020-09 2 00:00: 00 No 1mg propranolol 10 mg tablet 2020-09 2 00:00: 00 No 1mg atorvastati n 20 mg tablet 2020-09 2 00:00: 00 No 1mg levothyroxi ne 75 mcg tablet 2020-09 0- 00:00: 00 Yes 1mcg Elmer Rangel levothyroxi ne 75 mcg tablet 2020-09 0 00:00: 00 No 1mcg levothyroxi ne 75 mcg tablet 2020-09 0 00:00: 00 No 1mcg levothyroxi ne 75 mcg tablet 2020-09 0 00:00: 00 No 1mcg atorvastati n 80 mg tablet 04-22 00:00: 00 Yes 1mg Elmer Rangel levothyroxi ne 75 mcg tablet 04-22 00:00: 00 Yes 1mcg Elmer Rangel atorvastati n 80 mg tablet 04-22 00:00: 00 No 1mg levothyroxi ne 75 mcg tablet 04-22 00:00: 00 No 1mcg atorvastati n 80 mg tablet 04-22 00:00: 00 No 1mg levothyroxi ne 75 mcg tablet 04-22 00:00: 00 No 1mcg atorvastati n 80 mg tablet 04-22 00:00: 00 No 1mg levothyroxi ne 75 mcg tablet 04-22 00:00: 00 No 1mcg Dose Unknown 04-16 00:00: 00 Yes Elmer Rangel lovastatin 20 mg tablet 04-16 00:00: 00 Yes 1mg Elmer Rangel levothyroxi ne 88 mcg tablet 04-16 00:00: 00 Yes 1mcg Elmer Rangel Dose Unknown 04-16 00:00: 00 No lovastatin [...] lovastatin 20 mg tablet 02-08 00:00: 00 Yes 1mg Elmer Rangel lovastatin 20 mg tablet 02-08 00:00: 00 No 1mg lovastatin 20 mg tablet 02-08 00:00: 00 No 1mg lovastatin 20 mg tablet 02-08 00:00: 00 No 1mg Dose Unknown 02-05 00:00: 00 Yes Elmer Rangel Dose Unknown 02-05 00:00: 00 No Protonix 40 mg tablet,salvador yed release 02-05 00:00: 00 No 1mg Dose Unknown 02-05 00:00: 00 No levothyroxi ne 88 mcg tablet 01-06 00:00: 00 Yes 1mcg Elmer Rangel levothyroxi ne 88 mcg tablet 01-06 00:00: 00 No 1mcg levothyroxi ne 88 mcg tablet 01-06 00:00: 00 No 1mcg levothyroxi ne 88 mcg tablet 14 00:00: 00 No 1mcg Macrobid 100 mg capsule - 00:00: 00 Yes 1mg Elmer Rangel Macrobid 100 mg capsule - 00:00: 00 No 1mg Macrobid 100 mg capsule - 00:00: 00 No 1mg Macrobid 100 mg capsule 01-05 00:00: 00 No 1mg levothyroxi ne 88 mcg tablet 2 00:00: 00 Yes 1mcg Elmer Rangel levothyroxi ne 88 mcg tablet 2- 00:00: 00 No 1mcg levothyroxi ne 88 mcg tablet 2 00:00: 00 No 1mcg levothyroxi ne 88 mcg tablet 2- 00:00: 00 No 1mcg propranolol 10 mg tablet 1- 00:00: 00 Yes 1mg Elmer Rangel lovastatin 20 mg tablet 1- 00:00: 00 Yes 1mg Elmer Rangel levothyroxi ne 100 mcg tablet 1- 00:00: 00 Yes 1mcg Elmer Rangel propranolol 10 mg tablet 1- 00:00: 00 No 1mg lovastatin 20 mg tablet 1- 00:00: 00 No 1mg levothyroxi ne 100 mcg tablet 1- 00:00: 00 No 1mcg propranolol 10 mg tablet 1- 00:00: 00 No 1mg lovastatin 20 mg tablet 1-04 00:00: 00 No 1mg levothyroxi ne 100 mcg tablet 1- 00:00: 00 No 1mcg propranolol 10 mg tablet 1- 00:00: 00 No 1mg lovastatin 20 mg tablet 1- 00:00: 00 No 1mg levothyroxi ne 100 mcg tablet 1- 00:00: 00 No 1mcg loratadine 10 mg tablet 2019-09 0-05 00:00: 00 Yes 1mg Elmer Rangel Flonase Allergy Relief 50 mcg/actuati on nasal spray,suspe nsion 2019-09 0-05 00:00: 00 Yes 1mcg/ac tuation Elmer Rangel loratadine 10 mg tablet 2019-09 0-05 00:00: 00 No 1mg Flonase Allergy Relief 50 mcg/actuati on nasal spray,suspe nsion 2019-09 0-05 00:00: 00 No 1mcg/ac tuation loratadine 10 mg tablet 2019-09 005 00:00: 00 No 1mg Flonase Allergy Relief 50 mcg/actuati on nasal spray,suspe nsion 2019-09 0 00:00: 00 No 1mcg/ac tuation loratadine 10 mg tablet 2019-09 0 00:00: 00 No 1mg Flonase Allergy Relief 50 mcg/actuati on nasal spray,suspe nsion 2019-09 0 00:00: 00 No 1mcg/ac tuation amoxicillin 500 mg tablet 06-11 00:00: 00 Yes 1mg Elmer Rangel amoxicillin 500 mg tablet 06-11 00:00: 00 No 1mg amoxicillin 500 mg tablet 06-11 00:00: 00 No 1mg amoxicillin 500 mg tablet 06-11 00:00: 00 No 1mg metoprolol tartrate 25 mg tablet 06-10 00:00: 00 Yes 1mg Elmer Rangel lovastatin 20 mg tablet 06-10 00:00: 00 Yes 1mg Elmer Rangel levothyroxi ne 100 mcg tablet 06-10 00:00: 00 Yes 1mcg Elmer Rangel metoprolol tartrate 25 mg tablet 06-10 00:00: [...] 1mcg metoprolol tartrate 25 mg tablet 0 16 00:00: 00 No 1mg lovastatin 20 mg tablet 0 16 00:00: 00 No 1mg levothyroxi ne 100 mcg tablet 0 16 00:00: 00 No 1mcg metoprolol tartrate 25 mg tablet 0 03-05 00:00: 00 Yes 1mg Elmer Rangel lovastatin 20 mg tablet 0 - 00:00: 00 Yes 1mg Elmer Rangel levothyroxi ne 100 mcg tablet 0 03-05 00:00: 00 Yes 1mcg Elmer Rangel metoprolol tartrate 25 mg tablet 0 03-05 00:00: 00 No 1mg lovastatin 20 mg tablet 0 03-05 00:00: 00 No 1mg metoprolol tartrate 25 mg tablet 0 - 00:00: 00 No 1mg lovastatin 20 mg tablet 0 - 00:00: 00 No 1mg levothyroxi ne 100 mcg tablet 0 03-05 00:00: 00 No 1mcg levothyroxi ne 100 mcg tablet 0 03-05 00:00: 00 No 1mcg metoprolol tartrate 25 mg tablet 0 03-05 00:00: 00 No 1mg lovastatin 20 mg tablet 0 03-05 00:00: 00 No 1mg levothyroxi ne 100 mcg tablet 0 - 00:00: 00 No 1mcg metoprolol tartrate 25 mg tablet 0 - 00:00: 00 Yes 1mg Elmer Rangel loratadine 10 mg tablet 0 - 00:00: 00 Yes 1mg Elmer Rangel levothyroxi ne 100 mcg tablet 0 - 00:00: 00 Yes 1mcg Elmer Rangel metoprolol tartrate 25 mg tablet 0 - 00:00: 00 No 1mg loratadine 10 mg tablet 0 -11 00:00: 00 No 1mg levothyroxi ne 100 mcg tablet 0 - 00:00: 00 No 1mcg metoprolol tartrate 25 mg tablet 12-03 00:00: 00 No 1mg loratadine 10 mg tablet 12-03 00:00: 00 No 1mg levothyroxi ne 100 mcg tablet 12-03 00:00: 00 No 1mcg metoprolol tartrate 25 mg tablet 12-03 00:00: 00 No 1mg loratadine 10 mg tablet 12-03 00:00: 00 No 1mg levothyroxi ne 100 mcg tablet 12-03 00:00: 00 No 1mcg buspirone 10 mg tablet 10-15 00:00: 00 Yes 1mg Elmer Rangel lovastatin 20 mg tablet 10-15 00:00: 00 Yes 1mg Elmer Rangel buspirone 10 mg tablet 10-15 00:00: 00 No 1mg lovastatin 20 mg tablet 10-15 00:00: 00 No 1mg buspirone 10 mg tablet 10-15 00:00: 00 No 1mg lovastatin 20 mg tablet 10-15 00:00: 00 No 1mg buspirone 10 mg tablet 10-15 00:00: 00 No 1mg lovastatin 20 mg tablet 10-15 00:00: 00 No 1mg metoprolol tartrate 25 mg tablet 2018-09 00:00: 00 Yes 1mg Elmer Rangel levothyroxi ne 100 mcg tablet 2018-09 00:00: 00 Yes 1mcg Elmer Rangel metoprolol tartrate 25 mg tablet 2018-09 00:00: [...] ne 100 mcg tablet 05-10 00:00: 00 Yes 1mcg Elmer Rangel levothyroxi ne 100 mcg tablet 05-10 00:00: 00 No 1mcg levothyroxi ne 100 mcg tablet 05-10 00:00: 00 No 1mcg levothyroxi ne 100 mcg tablet 05-10 00:00: 00 No 1mcg metoprolol tartrate 25 mg tablet 03-15 00:00: 00 Yes 51mg Elmer Rangel metoprolol tartrate 25 mg tablet 03-15 00:00: 00 No 51mg metoprolol tartrate 25 mg tablet 03-15 00:00: 00 No 51mg metoprolol tartrate 25 mg tablet 03-15 00:00: 00 No 51mg levothyroxi ne 100 mcg tablet 01-25 00:00: 00 Yes 1mcg Elmer Rangel levothyroxi ne 100 mcg tablet 01-25 00:00: 00 No 1mcg levothyroxi ne 100 mcg tablet 01-25 00:00: 00 No 1mcg levothyroxi ne 100 mcg tablet 01-25 00:00: 00 No 1mcg levothyroxi ne 100 mcg tablet 12-22 00:00: 00 Yes 1mcg Elmer Rangel levothyroxi ne 100 mcg tablet 12-22 00:00: 00 No 1mcg levothyroxi ne 100 mcg tablet 12-22 00:00: 00 No 1mcg levothyroxi ne 100 mcg tablet 12-22 00:00: 00 No 1mcg lovastatin 20 mg tablet 12-20 00:00: 00 Yes 1mg Elmer Rangel lovastatin 20 mg tablet 12-20 00:00: 00 No 1mg lovastatin 20 mg tablet 12-20 00:00: 00 No 1mg lovastatin 20 mg tablet 12-20 00:00: 00 No 1mg omeprazole 20 mg capsule,del ayed release 11-05 00:00: 00 Yes 1mg Elmer Rangel omeprazole 20 mg capsule,del ayed release 11-05 00:00: 00 No 1mg omeprazole 20 mg capsule,del ayed release 11-05 00:00: 00 No 1mg omeprazole 20 mg capsule,del ayed release 11-05 00:00: 00 No 1mg lovastatin 20 mg tablet 2017-09 00:00: 00 Yes 1mg Elmer Rangel levothyroxi ne 88 mcg tablet 2017-09 00:00: 00 Yes 1mcg Elmer Rangel lovastatin 20 mg tablet 2017-09 00:00: 00 [...] lovastatin 20 mg tablet 01-31 00:00: 00 Yes 1mg Elmer Rangel levothyroxi ne 88 mcg tablet 01-31 00:00: 00 Yes 1mcg Elmer Rangel lovastatin 20 mg tablet 01-31 00:00: 00 [...] pravastatin 20 mg tablet 12-23 00:00: 00 Yes 1mg Elmer Rangel Medrol (Marshal) 4 mg tablets in a dose pack 12-23 00:00: 00 Yes 1mg Elmer Rangel levothyroxi ne 88 mcg tablet 12-23 00:00: 00 Yes 1mcg Elmer Rangel pravastatin 20 mg tablet 12-23 00:00: 00 [...] mcg tablet 12-23 00:00: 00 No 1mcg Immunizations Ordered Immunization Name Filled Immunization Name Date Status Comments Source zoster zoster 2018-07-31 00:00:00 Completed Elmer Rangel pneumococcal polysacchar pneumococcal polysacchar 2018-07-31 00:00:00 Completed Elmer Rangel zoster 2018-07-31 00:00:00 Completed pneumococcal polysacchar 2018-07-31 00:00:00 Completed zoster 2018-07-31 00:00:00 Completed pneumococcal polysacchar 2018-07-31 00:00:00 Completed zoster 2018-07-31 00:00:00 Completed pneumococcal polysacchar 2018-07-31 00:00:00 Completed Vital Signs Vital Name Observation Time Observation Value Comments S ource BP Systolic 2025-02-07 11:05:00 134 mm[Hg] Jose Angel hen Juventino Rangel BP Diastolic 2025-02-07 11:05:00 68 mm[Hg] Daren phen F Juan Carlos Weight Measured 2025-02-07 11:05:00 108.00 pounds Elmer Juventino Rangel Height Measured 2025-02-07 11:05:00 53.00 inches Elmer Rangel Body Temperature 2025-02-07 11:05:00 97.50 degrees Elmer aRngel Heart Rate 2025-02-07 11:05:00 64.00 /min Luna en F Juan Carlos Respiratory Rate 2025-02-07 11:05:00 18.00 /min Elmer Rangel BP Systolic 2023-12-14 11:15:00 121 mm[Hg] Jose Angel hen F Juan Carlos BP Diastolic 2023-12-14 11:15:00 67 mm[Hg] Daren phen F Juan Carlos Weight Measured 2023-12-14 11:15:00 107.60 pounds Elmer F Juan Carlos Height Measured 2023-12-14 11:15:00 53.00 inches Elmer F Juan Carlos Body Temperature 2023-12-14 11:15:00 98.40 degrees Elmer F Juan Carlos Heart Rate 2023-12-14 11:15:00 76.00 /min Luna en F Juan Carlos Respiratory Rate 2023-12-14 11:15:00 18.00 /min Elmer F Juan Carlos BP Systolic 2023-06-30 08:04:00 122 mm[Hg] Step hen F Juan Carlos BP Diastolic 2023-06-30 08:04:00 69 mm[Hg] Daren phen F Juan Carlos Weight Measured 2023-06-30 08:04:00 109.40 pounds Elmer F Juan Carlos Height Measured 2023-06-30 08:04:00 53.00 inches Elmer F Juan Carlos Body Temperature 2023-06-30 08:04:00 98.00 degrees Elmer F Juan Carlos Heart Rate 2023-06-30 08:04:00 64.00 /min Luna en F Juan Carlos Respiratory Rate 2023-06-30 08:04:00 Elmer F Juan Carlos BP Systolic 2023-03-25 09:07:00 131 mm[Hg] Step hen F Juan Carlos BP Diastolic 2023-03-25 09:07:00 70 mm[Hg] Daren phen F Juan Carlos Weight Measured 2023-03-25 09:07:00 109.00 pounds Elmer F Juan Carlos Height Measured 2023-03-25 09:07:00 53.00 inches Elmer F Juan Carlos Body Temperature 2023-03-25 09:07:00 97.80 degrees Elmer F Juan Carlos Heart Rate 2023-03-25 09:07:00 55.00 /min Luna en F Juan Carlos Respiratory Rate 2023-03-25 09:07:00 Elmer F Juan Carlos BP Systolic 2022-11-30 13:26:00 128 mm[Hg] Step hen F Juan Carlos BP Diastolic 2022-11-30 13:26:00 68 mm[Hg] Daren phen F Juan Carlos Weight Measured 2022-11-30 13:26:00 106.60 pounds Elmer F Juan Carlos Height Measured 2022-11-30 13:26:00 53.00 inches Elmer F Juan Carlos Body Temperature 2022-11-30 13:26:00 97.70 degrees Elmer F Juan Carlos Heart Rate 2022-11-30 13:26:00 72.00 /min Luna en F Juan Carlos Respiratory Rate 2022-11-30 13:26:00 Elmer F Juan Carlos BP Systolic 2022-10-04 13:17:00 102 mm[Hg] Step hen F Juan Carlos BP Diastolic 2022-10-04 13:17:00 61 mm[Hg] Daren phen F Juan Carlos Weight Measured 2022-10-04 13:17:00 111.20 pounds Elmer F Juan Carlos Height Measured 2022-10-04 13:17:00 53.00 inches Elmer F Juan Carlos Body Temperature 2022-10-04 13:17:00 98.20 degrees Elmer F Juan Carlos Heart Rate 2022-10-04 13:17:00 75.00 /min Luna en F Juan Carlos Respiratory Rate 2022-10-04 13:17:00 Elmer F Juan Carlos BP Systolic 2022-09-12 12:04:00 150 mm[Hg] Step hen F Juan Carlos BP Diastolic 2022-09-12 12:04:00 66 mm[Hg] Daren phen F Juan Carlos Weight Measured 2022-09-12 12:04:00 109.80 pounds Elmer F Juan Carlos Height Measured 2022-09-12 12:04:00 53.00 inches Elmer F Juan Carlos Body Temperature 2022-09-12 12:04:00 97.30 degrees Elmer F Juan Carlos Heart Rate 2022-09-12 12:04:00 76.00 /min Luna en F Juan Carlos Respiratory Rate 2022-09-12 12:04:00 18.00 /min Elmer F Juan Carlos BP Systolic 2022-07-08 08:07:00 125 mm[Hg] Step hen F Juan Carlos BP Diastolic 2022-07-08 08:07:00 73 mm[Hg] Daren phen F Juan Carlos Weight Measured 2022-07-08 08:07:00 110.60 pounds Elmer F Juan Carlos Height Measured 2022-07-08 08:07:00 53.00 inches Elmer F Juan Carlos Body Temperature 2022-07-08 08:07:00 98.30 degrees Elmer F Juan Carlos Heart Rate 2022-07-08 08:07:00 61.00 /min Luna en F Juan Carlos Respiratory Rate 2022-07-08 08:07:00 18.00 /min Elmer F Juan Carlos BP Systolic 2022-04-26 09:30:00 151 mm[Hg] Step hen F Juan Carlos BP Diastolic 2022-04-26 09:30:00 71 mm[Hg] Daren phen F Juan Carlos Weight Measured 2022-04-26 09:30:00 110.20 pounds Elmer F Juan Carlos Height Measured 2022-04-26 09:30:00 53.00 inches Elmer F Juan Carlos Body Temperature 2022-04-26 09:30:00 98.30 degrees Elmer F Juan Carlos Heart Rate 2022-04-26 09:30:00 67.00 /min Luna en F Juan Carlos Respiratory Rate 2022-04-26 09:30:00 18.00 /min Elmer F Juan Carlos BP Systolic 2022-03-11 10:27:00 131 mm[Hg] Step hen F Juan Carlos BP Diastolic 2022-03-11 10:27:00 57 mm[Hg] Daren phen F Juan Carlos Weight Measured 2022-03-11 10:27:00 110.20 pounds Elmer F Juan Carlos Height Measured 2022-03-11 10:27:00 53.00 inches Elmer F Juan Carlos Body Temperature 2022-03-11 10:27:00 98.40 degrees Elmer F Juan Carlos Heart Rate 2022-03-11 10:27:00 77.00 /min Luna en F Juan Carlos Respiratory Rate 2022-03-11 10:27:00 16.00 /min Elmer F Juan Carlos BP Systolic 2021-09-09 09:14:00 126 mm[Hg] BP [...] Goal Plan of Care Note [code = 83270-4] Goal Plan of Care Note [code = 94681-4] Goal Plan of Care Note [code = 30833-8] Goal Plan of Care Note [code = 02400-8] Goal Plan of Care Note [code = 96203-4] Goal Plan of Care Note [code = 57880-2] Goal Plan of Care Note [code = 60159-8] Goal Plan of Care Note [code = 18768-6] Goal Plan of Care Note [code = 48196-0] Goal Plan of Care Note [code = 08844-7] Goal Plan of Care Note [code = 47026-4] Goal Plan of Care Note [code = 62632-3] Goal Plan of Care Note [code = 00470-3] Goal Plan of Care Note [code = 40407-5] Goal Plan of Care Note [code = 17685-7] Goal Plan of Care Note [code = 19038-6] Goal Plan of Care Note [code = 55664-8] Goal Plan of Care Note [code = 88068-3] Goal Plan of Care Note [code = 95852-4] Goal Plan of Care Note [code = 51221-3] Goal Plan of Care Note [code = 60783-2] Goal Plan of Care Note [code = 80061-3] Goal Plan of Care Note [code = 86545-8] Goal Plan of Care Note [code = 56483-9] Goal Plan of Care Note [code = 77351-6] Goal Plan of Care Note [code = 35424-3] Goal Plan of Care Note [code = 27243-0] Goal Plan of Care Note [code = 41904-7] Goal Plan of Care Note [code = 88858-6] Goal Plan of Care Note [code = 08567-0] Goal Plan of Care Note [code = 09460-1] Goal Plan of Care Note [code = 46485-3] Goal Plan of Care Note [code = 45880-3] Goal Plan of Care Note [code = 23861-8] Goal Plan of Care Note [code = 47783-8] Goal Plan of Care Note [code = 07338-6] Goal Plan of Care Note [code = 93288-1] Goal Plan of Care Note [code = 26744-4] Goal Plan of Care Note [code = 93834-9] Goal Plan of Care Note [code = 41636-9] Goal Plan of Care Note [code = 34556-4] Goal Plan of Care Note [code = 20361-0] Goal Plan of Care Note [code = 32403-9] Goal Plan of Care Note [code = 85351-7] Goal Plan of Care Note [code = 70257-1] Goal Plan of Care Note [code = 50896-3] Goal Plan of Care Note [code = 62412-8] Goal Plan of Care Note [code = 82927-0] Goal Plan of Care Note [code = 67515-2] Goal Plan of Care Note [code = 50495-6] Goal Plan of Care Note [code = 92141-6] Goal Plan of Care Note [code = 11772-9] Goal Plan of Care Note [code = 34122-0] Goal Plan of Care Note [code = 15101-6] Goal Plan of Care Note [code = 35736-0] Goal Plan of Care Note [code = 12385-5] Goal Plan of Care Note [code = 32703-5] Goal Plan of Care Note [code = 99024-6] Goal Plan of Care Note [code = 65573-2] Goal Plan of Care Note [code = 68525-6] Goal Plan of Care Note [code = 56320-1] Goal Plan of Care Note [code = 69643-6] Goal Plan of Care Note [code = 68876-7] Goal Plan of Care Note [code = 25551-6] Goal Plan of Care Note [code = 62338-4] Goal Plan of Care Note [code = 43723-2] Goal Plan of Care Note [code = 90431-4] Goal Plan of Care Note [code = 32975-0] Goal Plan of Care Note [code = 92622-8] Goal Plan of Care Note [code = 54271-9] Goal Plan of Care Note [code = 52530-5] Goal Plan of Care Note [code = 74186-3] Goal Plan of Care Note [code = 55708-3] Goal Plan of Care Note [code = 87620-7] Goal Plan of Care Note [code = 64884-4] Goal Plan of Care Note [code = 10279-8] Goal Plan of Care Note [code = 73631-3] Goal Plan of Care Note [code = 75991-3] Goal Plan of Care Note [code = 88041-7] Goal Plan of Care Note [code = 18030-0] Goal Plan of Care Note [code = 94472-9] Goal Plan of Care Note [code = 86598-4] Goal Plan of Care Note [code = 51857-7] Goal Plan of Care Note [code = 91048-9] Goal Plan of Care Note [code = 62248-0] Goal Plan of Care Note [code = 71066-6] Goal Plan of Care Note [code = 22822-4] Goal Plan of Care Note [code = 65272-2] Goal Plan of Care Note [code = 52652-7] Goal Plan of Care Note [code = 24245-1] Goal Plan of Care Note [code = 42870-0] Goal Plan of Care Note [code = 61903-1] Goal Plan of Care Note [code = 09929-3] Goal Plan of Care Note [code = 42732-1] Goal Plan of Care Note [code = 19263-2] Goal Plan of Care Note [code = 44514-2] Goal Plan of Care Note [code = 65022-9] Encounters Start Date/Time End Date/Time Encounter Type Admission Type Attending [facility] Care Department Encounter ID Source 2025-02-12 11:06:53 2025-02-12 11:06:53 Outpatient [facility] [id number] Elmer Rangel 2025-02-08 09:56:28 2025-02-08 09:56:28 Outpatient SFA [facility] [id number] Elmer Jauregui Juan Carlos 2025-02-07 11:03:16 2025-02-07 11:03:16 Outpatient [facility] [id number] Elmer Jauregui Juan Carlos 2025-02-07 00:00:00 2025-02-07 00:00:00 Outpatient Visit SFA [id number] Elmer Jauregui Juan Carlos 2023-12-15 07:57:06 2023-12-15 07:57:06 Outpatient S[facility] [id number] Elmer Jauregui Juan Carlos 2023-12-14 11:10:28 2023-12-14 11:10:28 Outpatient S[facility] [id number] Elmer Jauregui Juan Carlos 2023-07-17 16:36:05 2023-07-17 16:36:05 Outpatient S[facility] [id number] Elmer Jauregui Juan Carlos 2023-06-30 07:57:31 2023-06-30 07:57:31 Outpatient S[facility] [id number] Elmer Rangel 2023-03-29 13:11:00 2023-03-29 13:11:00 Outpatient SFA [facility] [id number] Elmer Rangel 2023-03-25 09:01:34 2023-03-25 09:01:34 Outpatient SFA [facility] [id number] Elmer Rangel 2022-11-30 13:21:34 2022-11-30 13:21:34 Outpatient SFA [facility] [id number] Elmer Rangel 2022-10-04 13:09:03 2022-10-04 13:09:03 Outpatient SFA [facility] [id number] Elmer Rangel 2022-09-12 11:59:11 2022-09-12 11:59:11 Outpatient SFA [facility] [id number] Elmer Rangel 2022-09-12 00:00:00 2022-09-12 00:00:00 Outpatient Visit [id number] 2022-08-30 08:14:17 2022-08-30 08:14:17 Outpatient SFA [facility] [id number] Elmer Rangel 2022-07-12 14:15:25 2022-07-12 14:15:25 Outpatient SFA [facility] [id number] Elmer Rangel 2022-07-08 08:01:27 2022-07-08 08:01:27 Outpatient SFA [facility] [id number] Elmer Rangel 2022-07-08 00:00:00 2022-07-08 00:00:00 Outpatient Visit [id number] 3033-08-02 00:00:00 2022-04-26 00:00:00 Outpatient Visit [id number] Results Test Description Test Time Test Comments Results Result Co mments Source Elmer RangelCOMPREHENSIVE METABOLIC [id number] 00:00:00* Test Item Value Reference Range Interpretation Comme nts GLUCOSE (test code = 2345-7) 86 mg/dL UREA NITROGEN (BUN) (test code = 3094-0) 12 mg/dL CREATININE (test code = 2160-0) 0.55 mg/dL EGFR (test code = 16705-3) 94 mL/min/1.73m2 BUN/CREATININE RATIO (test code = 3097-3) 22 (calc) SODIUM (test code = 2951-2) 129 mmol/L POTASSIUM (test code = 2823-3) 3.9 mmol/L CHLORIDE (test code = 2075-0) 98 mmol/L CARBON DIOXIDE (test code = 2027-9) 25 mmol/L CALCIUM (test code = 18446-6) 9.4 mg/dL PROTEIN, TOTAL (test code = 2885-2) 6.7 g/dL ALBUMIN (test code = 1751-7) 4.2 g/dL GLOBULIN (test code = 85278-4) 2.5 g/dL(calc) ALBUMIN/GLOBULIN RATIO (test code = 1759-0) 1.7 (calc) BILIRUBIN, TOTAL (test code = 1975-2) 0.4 mg/dL ALKALINE PHOSPHATASE (test code = 6768-6) 66 U/L AST (test code = 1920-8) 18 U/L ALT (test code = 1742-6) 13 U/L Elmer RangelHEMOGLOBIN [id number] 00:00:00* Test Item Value Reference Range Interpretation Comme [facility] HEMOGLOBIN A1c (test code = 4548-4) 5.6 % Elmer RangelLIPID [id number] 00:00:00* Test Item Value Reference Range Interpretation Comme nts CHOLESTEROL, TOTAL (test cod e = 2093-3) 236 mg/dL HDL CHOLESTEROL (test code = 2085-9) 62 mg/dL TRIGLYCERIDES (test code = 2571-8) 83 mg/dL LDL-CHOLESTEROL (test code = 90036-7) 155 mg/dL(calc) CHOL/HDLC RATIO (test code = 9830-1) 3.8 (calc) NON HDL CHOLESTEROL (test code = 48457-7) 174 mg/dL(calc) Elmer RangelH, THIRD [id number] 04:01:49* Test Item Value Reference Range Interpretation Comme [facility] TSH, THIRD GENERATION (test code = 2821) 6.430 UIU/ML 0.400-4.100 H COMPREHENSIVE METABOLIC [id number] 03:55:01* Test Item Value Reference Range Interpretation Comme nts GLUCOSE (test code = 2216) 88 MG/DL 70-99 BUN (test code = 220) 11 MG/DL 8-23 CREATININE (test code = 2214) 0.67 MG/DL 0.60-1.30 eGFR (2020 CKD-EPI) (test co de = 56949) 90 ML/MIN/1.73 >60 CALC BUN/CREAT (test code = 2235) 16 RATIO 6-28 SODIUM (test code = 223) 138 MEQ/L 133-146 POTASSIUM (test code = 2228) 4.2 MEQ/L 3.5-5.4 CHLORIDE (test code = 2215) 102 MEQ/L 95-107 CARBON DIOXIDE (test code = 2206) 23 MEQ/L 19-31 CALCIUM (test code = 2209) 9.9 MG/DL 8.5-10.5 PROTEIN, TOTAL (test code = 2229) 6.9 G/DL 6.1-8.3 ALBUMIN (test code = 220) 4.2 G/DL 3.5-5.2 CALC GLOBULIN (test code = 2240) 2.7 G/DL 1.9-3.7 CALC A/G RATIO (test code = 2234) 1.6 RATIO 1.0-2.6 BILIRUBIN, TOTAL (test code = 2206) 0.3 MG/DL <=1.2 ALKALINE PHOSPHATASE (test code = 2204) 72 U/L 40-142 AST (test code = 2218) 18 U/L 9-40 ALT (test code = 2219) 14 U/L 5-40 LIPID [id number] 03:55:01* Test Item Value Reference Range Interpretation Comme nts CHOLESTEROL (test code = 2210) 245 MG/DL <200 H TRIGLYCERIDES (test code = 2232) 51 MG/DL <150 HDL CHOLESTEROL (test code = 2220) 67 MG/DL >39 CALC LDL CHOL (test code = 2237) 164 MG/DL <100 H NOTE: CALCULATED LDL IS BASED ON SUSHMA-OROPEZA METHOD WHICHINCLUDES ADJUSTABLE TRIGLYCERIDE:VLDL CHOLESTEROL RATIO.THIS FACTOR VARIES BY MEASURED TRIGLYCERIDE AND NON-HDLCHOLESTEROL CONCENTRATIONS WITH INCREASED CALCULATED LDL SEENIN HIGHER TRIGLYCERIDE OR LOWER NON-HDL SPECIMENS. FOR MOREINFORMATION, SEE CLIENT ANNOUNCEMENT AT [email or web address] /CalcLDL-C RISK RATIO LDL/HDL (test code = 2238) 2.45 RATIO <3.22 UNLESS OTHERW ISE INDICATED, ALL TESTING PERFORMED AT [facility] [address] [place] [address] ELECTRIC KNIFE OPERATOR: LUCIO RAGSDALE M.D. [place] NUMBER [id number] [facility] [place]. [id number] HEMOGLOBIN [id number] 03:28:26* Test Item Value Reference Range Interpretation Comme nts HEMOGLOBIN A1c (test code = 31795) 5.6 % 4.2-5.6 HEMOGLOBIN [id number] 00:00:00* Test Item Value Reference Range Interpretation Comme nts HEMOGLOBIN A1c (test code = 79792) 5.6 % Elmer RangelCOMPREHENSIVE METABOLIC [id number] 00:00:00* Test Item Value Reference Range Interpretation Comme nts GLUCOSE (test code = 2217) 88 MG/DL BUN (test code = 2208) 11 MG/DL CREATININE (test code = 2214) 0.67 MG/DL eGFR (2020 CKD-EPI) (test co de = 70896) 90 ML/MIN/1.73 CALC BUN/CREAT (test code = 2235) 16 RATIO SODIUM (test code = 2231) 138 MEQ/L POTASSIUM (test code = 2228) 4.2 MEQ/L CHLORIDE (test code = 2215) 102 MEQ/L CARBON DIOXIDE (test code = 2206) 23 MEQ/L CALCIUM (test code = 2209) 9.9 MG/DL PROTEIN, TOTAL (test code = 2229) 6.9 G/DL ALBUMIN (test code = 2201) 4.2 G/DL CALC GLOBULIN (test code = 2240) 2.7 G/DL CALC A/G RATIO (test code = 2234) 1.6 RATIO BILIRUBIN, TOTAL (test code = 2207) 0.3 MG/DL ALKALINE PHOSPHATASE (test code = 2204) 72 U/L AST (test code = 2218) 18 U/L ALT (test code = 2219) 14 U/L Elmer Juventino AustinLIPID [id number] 00:00:00* Test Item Value Reference Range Interpretation Comme nts CHOLESTEROL (test code = 2210) 245 MG/DL TRIGLYCERIDES (test code = 2232) 51 MG/DL HDL CHOLESTEROL (test code = 2220) 67 MG/DL CALC LDL CHOL (test code = 2237) 164 MG/DL RISK RATIO LDL/HDL (test cod e = 2238) 2.45 RATIO FERDINAND Gannon [id number] 00:00:00* Test Item Value Reference Range Interpretation Comme mckenzie TSH, THIRD GENERATION (test code = 2821) 6.430 UIU/ML FERDINAND Gannon [id number] 00:00:00* Test Item Value Reference Range Interpretation Comme nts TSH, THIRD GENERATION (test code = 2821) 2.010 UIU/ML Elmer RangelHEMOGLOBIN [id number] 02:50:38* Test Item Value Reference Range Interpretation Comme nts HEMOGLOBIN A1c (test code = 23653) 5.8 % 4.2-5.6 H [employer] GUIDELINES FOR HGB A1C: PREDIABETES/INCREASED RISK . . . . . . . 5.7-6.4% DIAGNOSIS OF DIABETES . . . . . . . . . >=6.5% WITH CONFIRMATION OR APPROPRIATE SYMPTOMS NOTE: ASSAY MAY BE AFFECTED BY HEMOGLOBINOPATHIES (SICKLE CELL ANEMIA, S-C DISEASE, OTHERS) OR ARTIFICIALLY LOWERED BY DECREASED RED CELL SURVIVAL (HEMOLYTIC ANEMIAS, BLOOD LOSS, ETC.). CONSIDER ALTERNATE TESTING OR LABORATORY CONSULTATION. UNLESS OTHERWISE INDICATED, ALL TESTING PERFORMED AT [facility] [address] [place] [address] ELECTRIC KNIFE OPERATOR: LUCIO RAGSDALE M.D. [place] NUMBER [id number] [facility] [place]. [id number] HEMOGLOBIN [id number] 00:00:00* Test Item Value Reference Range Interpretation Comme mckenzie HEMOGLOBIN A1c (test code = 71548) 5.8 % FERDINAND [id number] 09:41:19* Test Item Value Reference Range Interpretation Comme nts TSH, THIRD GENERATION (test code = 2821) 1.720 UIU/ML 0.400-4.100 [facility] has impo rtant pathology staff changes effective 11/23/2022. New pathology staff will provide uninterrupted, excellent patient care and clinical consultation. See URL: [email or web address]. UNLESS OTHERWISE INDICATED, ALL TESTING PERFORMED AT [facility] [address] [place] [address] ELECTRIC KNIFE OPERATOR: LUCIO RAGSDALE M.D. ENMANUELIA NUMBER [id number] [facility] [place]. [id number] TSH, THIRD [id number] 00:00:00* Test Item Value Reference Range Interpretation Comme nts TSH, THIRD GENERATION (test code = 2821) 1.720 UIU/ML Elmer RangelCOMPREHENSIVE METABOLIC [id number] 03:30:14* Test Item Value Reference Range Interpretation Comme nts GLUCOSE (test code = 2217) 95 MG/DL 70-99 BUN (test code = 8) 13 MG/DL 8-23 CREATININE (test code = 2214) 0.66 MG/DL 0.60-1.30 eGFR (2020 CKD-EPI) (test code = 67652) 91 ML/MIN/1.73 >60 CALC BUN/CREAT (test code [...] code = 2219) 24 U/L 5-40 LIPID [id number] 03:30:14* Test Item Value Reference Range Interpretation [...] SPECIMENS. FOR MOREINFORMATION, SEE CLIENT ANNOUNCEMENT AT [email or web address] /CalcLDL-C RISK RATIO LDL/HDL (test code = 2238) 1.25 RATIO <3.22 UNLESS OTHERW ISE INDICATED, ALL TESTING PERFORMED [facility] [address] [place] [address] ELECTRIC KNIFE OPERATOR: IGNACIO HANDY M.D. CLIA NUMBER [id number] [facility] [place]. [id number] HEMOGLOBIN [id number] 03:24:09* Test Item Value Reference Range Interpretation Comme nts HEMOGLOBIN A1c (test code = 03514) 5.9 % 4.2-5.6 H CBC W/AUTO DIFF WITH [id number] 02:15:17* Test Item Value Reference Range Interpretation [...] = 1065) 0.0 /100 WBC'S See_Comment [[employer] ge] The system which generated this result [...] 0.00-0.10 ABS NUCLEATED RBCS (test code = 37118) 0.00 K/UL 0.00-0.11 HEMOGLOBIN [id number] 00:00:00* Test Item Value Reference Range Interpretation Comme nts HEMOGLOBIN A1c (test code = 10686) 5.9 % Elmer Jauregui Juan CarlosCOMPREHENSIVE METABOLIC [id number] 00:00:00* Test Item Value Reference Range Interpretation Comme nts GLUCOSE (test code = 2217) 95 MG/DL BUN (test code = 2208) 13 MG/DL CREATININE (test code = 2214) 0.66 MG/DL eGFR (2020 CKD-EPI) (test co de = 52445) 91 ML/MIN/1.73 CALC BUN/CREAT (test code = 2235) 20 RATIO SODIUM (test code = 2231) 140 MEQ/L POTASSIUM (test code = 2228) 4.5 MEQ/L CHLORIDE (test code = 2215) 104 MEQ/L CARBON DIOXIDE (test code = 2206) 25 MEQ/L CALCIUM (test code = 2209) 9.9 MG/DL PROTEIN, TOTAL (test code = 2229) 7.6 G/DL ALBUMIN (test code = 2201) 4.4 G/DL CALC GLOBULIN (test code = 2240) 3.2 G/DL CALC A/G RATIO (test code = 2234) 1.4 RATIO BILIRUBIN, TOTAL (test code = 2207) 0.3 MG/DL ALKALINE PHOSPHATASE (test code = 2204) 96 U/L AST (test code = 2218) 25 U/L ALT (test code = 2219) 24 U/L Elmer RangelCBC W/AUTO [id number] 00:00:00* Test Item Value Reference Range Interpretation Comme nts WBC (test code = 1001) 6.8 K/UL RBC (test code = 1002) 4.60 M/UL HEMOGLOBIN (test code = 1003) 13.0 G/DL HEMATOCRIT (test code = 1004) 39.2 % MCV (test code = 1005) 85.2 fL MCH (test code = 1006) 28.3 PG MCHC (test code = 1007) 33.2 G/DL RDW (test code = 1038) 12.8 % NEUTROPHILS (test code = 1008) 56.1 % [...] ABSOLUTE NEUTROPHILS (test c ode = 1066) 3.82 K/UL ABSOLUTE LYMPHOCYTES (test c ode = 1067) 2.09 K/UL ABSOLUTE MONOCYTES (test cod e = 1068) 0.68 K/UL ABSOLUTE EOSINOPHILS (test c ode = 1040) 0.18 K/UL ABSOLUTE BASOPHILS (test cod e = 1069) 0.02 K/UL ABS IMMATURE GRANULOCYTES (t est code = 1020) 0.02 K/UL ABS NUCLEATED RBCS (test cod e = 05822) 0.00 K/UL Elmer RangelLIPID [id number] 00:00:00* Test Item Value Reference Range Interpretation Comme nts CHOLESTEROL (test code = 2210) 158 MG/DL TRIGLYCERIDES (test code = 2232) 157 MG/DL HDL CHOLESTEROL (test code = 2220) 60 MG/DL CALC LDL CHOL (test code = 2237) 75 MG/DL RISK RATIO LDL/HDL (test cod e = 2238) 1.25 RATIO Elmer Chand, THIRD [id number] 04:59:33* Test Item Value Reference Range Interpretation Comme nts TSH, THIRD GENERATION (test code = 2821) 1.940 UIU/ML 0.400-4.100 LIPID [id number] 04:04:31* Test Item Value Reference Range Interpretation [...] SPECIMENS. FOR MOREINFORMATION, SEE CLIENT ANNOUNCEMENT AT [email or web address] /CalcLDL-C RISK RATIO LDL/HDL (test code = 2238) 1.70 RATIO <3.22 UNLESS OTHERW ISE INDICATED, [facility] [address] [place] [address] ELECTRIC KNIFE OPERATOR: IGNACIO HANDY M.D. CLIA NUMBER [id number] [facility] [place] [place]. [id number] 00:00:00* Test Item Value Reference Range Interpretation Comme nts TSH, THIRD GENERATION (test code = 2821) 1.940 UIU/ML Elmer [id number] 00:00:00* Test Item Value Reference Range Interpretation Comme nts TSH, THIRD GENERATION (test code = 2821) 1.940 UIU/ML LIPID [id number] 00:00:00* Test Item Value Reference Range Interpretation Comme nts CHOLESTEROL (test code = 2210) 190 MG/DL TRIGLYCERIDES (test code = 2232) 83 MG/DL HDL CHOLESTEROL (test code = 2220) 64 MG/DL CALC LDL CHOL (test code = 2237) 109 MG/DL RISK RATIO LDL/HDL (test cod e = 2238) 1.70 RATIO LIPID [id number] 00:00:00* Test Item Value Reference Range Interpretation Comme nts CHOLESTEROL (test code = 2210) 190 MG/DL TRIGLYCERIDES (test code = 2232) 83 MG/DL HDL CHOLESTEROL (test code = 2220) 64 MG/DL CALC LDL CHOL (test code = 2237) 109 MG/DL RISK RATIO LDL/HDL (test cod e = 2238) 1.70 RATIO Elmer Chand THIRD [id number] 10:50:30* Test Item Value Reference Range Interpretation Comme nts TSH, THIRD GENERATION (test code = 2821) 3.760 UIU/ML 0.400-4.100 UNLESS OTHERWISE INDICATED, ALL TESTING PERFORMED [facility] [address] [place] [address] ELECTRIC KNIFE OPERATOR: IGNACIO HANDY M.D. CLIA NUMBER [id number] [facility] [place]. [id number] 00:00:00* Test Item Value Reference Range Interpretation Comme nts TSH, THIRD GENERATION (test code = 2821) 3.760 UIU/ML [id number] 00:00:00* Test Item Value Reference Range Interpretation Comme nts TSH, THIRD GENERATION (test code = 2821) 3.760 UIU/ML [id number] 00:00:00* Test Item Value Reference Range Interpretation Comme nts TSH, THIRD GENERATION (test code = 2821) 3.760 UIU/ML Elmer Chand THIRD [id number] 06:53:15* Test Item Value Reference Range Interpretation Comme nts TSH, THIRD GENERATION (test code = 2821) 2.690 UIU/ML 0.400-4.100 COMPREHENSIVE METABOLIC [id number] 05:18:29* Test Item Value Reference Range Interpretation Comme nts GLUCOSE (test code = 2217) 91 MG/DL 70-99 BUN (test code = 2208) 12 MG/DL 8-23 CREATININE (test code = 2214) 0.62 MG/DL 0.60-1.30 eGFR (2020 CKD-EPI) (test code = 37583) 93 ML/MIN/1.73 >60 CALC BUN/CREAT (test code = 5) 19 RATIO 6-28 SODIUM (test code = 2230) 140 MEQ/L 133-146 POTASSIUM (test code = 2227) 4.0 MEQ/L 3.5-5.4 CHLORIDE (test code = 2214) 105 MEQ/L 95-107 CARBON DIOXIDE (test code = 2205) 24 MEQ/L 19-31 CALCIUM (test code = 2208) 9.8 MG/DL 8.5-10.5 PROTEIN, TOTAL (test code = 2228) 7.2 G/DL 6.1-8.3 ALBUMIN (test code = 2200) 4.4 G/DL 3.5-5.2 CALC GLOBULIN (test code = 2239) 2.8 G/DL 1.9-3.7 CALC A/G RATIO (test [...] code = 2218) 18 U/L 5-40 LIPID [id number] 05:18:29* Test Item Value Reference Range Interpretation Comme nts CHOLESTEROL (test code = 2209) 221 MG/DL <200 H TRIGLYCERIDES (test code = 2231) 116 MG/DL <150 HDL CHOLESTEROL (test code = 0) 63 MG/DL >39 CALC LDL CHOL (test code = 2236) 136 MG/DL <100 H NOTE: CALCULATED LDL IS BASED ON SUSH[employer] METHOD WHICHINCLUDES ADJUSTABLE TRIGLYCERIDE:VLDL CHOLESTEROL RATIO.THIS FACTOR VARIES BY MEASURED TRIGLYCERIDE AND NON-HDLCHOLESTEROL CONCENTRATIONS WITH INCREASED CALCULATED LDL SEENIN HIGHER TRIGLYCERIDE OR LOWER NON-HDL SPECIMENS. FOR MOREINFORMATION, SEE CLIENT ANNOUNCEMENT AT [email or web address] /CalcLDL-C RISK RATIO LDL/HDL (test code = 223) 2.16 RATIO <3.22 HEMOGLOBIN [id number] 05:13:46* Test Item Value Reference Range Interpretation Comme nts HEMOGLOBIN A1c (test code = 06178) 5.6 % 4.2-5.6 UNLESS OTHERWISE INDICATED, ALL TESTING PERFORMED [facility] [employer] [address] [place] [address] ELECTRIC KNIFE OPERATOR: IGNACIO HANDY M.D. CLIA NUMBER [id number] [facility] [place]. [id number] CBC W/AUTO DIFF WITH [id number] 03:18:03* Test Item Value Reference Range Interpretation [...] 0.00-0.10 ABS NUCLEATED RBCS (test code = 19299) 0.00 K/UL 0.00-0.11 COMPREHENSIVE METABOLIC [id number] 00:00:00* Test Item Value Reference Range Interpretation Comme nts GLUCOSE (test code = 2217) 91 MG/DL BUN (test code = 2208) 12 MG/DL CREATININE (test code = 2214) 0.62 MG/DL eGFR (2020 CKD-EPI) (test co de = 62873) 93 ML/MIN/1.73 CALC BUN/CREAT (test code = [...] (test code = 2219) 18 U/L LIPID [id number] 00:00:00* Test Item Value Reference Range Interpretation Comme nts CHOLESTEROL (test code = 2210) 221 MG/DL TRIGLYCERIDES (test code = 2232) 116 MG/DL HDL CHOLESTEROL (test code = 2220) 63 MG/DL CALC LDL CHOL (test code = 2237) 136 MG/DL RISK RATIO LDL/HDL (test cod e = 2238) 2.16 RATIO HEMOGLOBIN [id number] 00:00:00* Test Item Value Reference Range Interpretation Comme nts HEMOGLOBIN A1c (test code = 40274) 5.6 % [id number] 00:00:00* Test Item Value Reference Range Interpretation Comme nts TSH, THIRD GENERATION (test code = 2821) 2.690 UIU/ML CBC W/AUTO [id number] 00:00:00* Test Item Value Reference Range Interpretation [...] ABS NUCLEATED RBCS (test cod e = 12994) 0.00 K/UL COMPREHENSIVE METABOLIC [id number] 00:00:00* Test Item Value Reference Range Interpretation Comme nts GLUCOSE (test code = 2217) 91 MG/DL BUN (test code = 2208) 12 MG/DL CREATININE (test code = 2214) 0.62 MG/DL eGFR (2020 CKD-EPI) (test co de = 82523) 93 ML/MIN/1.73 CALC BUN/CREAT (test code = [...] (test code = 2219) 18 U/L LIPID [id number] 00:00:00* Test Item Value Reference Range Interpretation Comme nts CHOLESTEROL (test code = 2210) 221 MG/DL TRIGLYCERIDES (test code = 2232) 116 MG/DL HDL CHOLESTEROL (test code = 2220) 63 MG/DL CALC LDL CHOL (test code = 2237) 136 MG/DL RISK RATIO LDL/HDL (test cod e = 2238) 2.16 RATIO HEMOGLOBIN [id number] 00:00:00* Test Item Value Reference Range Interpretation Comme nts HEMOGLOBIN A1c (test code = 10899) 5.6 % [id number] 00:00:00* Test Item Value Reference Range Interpretation Comme nts TSH, THIRD GENERATION (test code = 2821) 2.690 UIU/ML CBC W/AUTO [id number] 00:00:00* Test Item Value Reference Range Interpretation [...] ABS NUCLEATED RBCS (test cod e = 35150) 0.00 K/UL COMPREHENSIVE METABOLIC [id number] 00:00:00* Test Item Value Reference Range Interpretation Comme nts GLUCOSE (test code = 2217) 91 MG/DL BUN (test code = 2208) 12 MG/DL CREATININE (test code = 2214) 0.62 MG/DL eGFR (2020 CKD-EPI) (test co de = 44026) 93 ML/MIN/1.73 CALC BUN/CREAT (test code = [...] ALT (test code = 2219) 18 U/L CBC W/AUTO [id number] 00:00:00* Test Item Value Reference Range Interpretation [...] ABS NUCLEATED RBCS (test cod e = 28942) 0.00 K/UL Elmer F AustinLIPID [id number] 00:00:00* Test Item Value Reference Range Interpretation Comme nts CHOLESTEROL (test code = 2210) 221 MG/DL TRIGLYCERIDES (test code = 2232) 116 MG/DL HDL CHOLESTEROL (test code = 2220) 63 MG/DL CALC LDL CHOL (test code = 2237) 136 MG/DL RISK RATIO LDL/HDL (test cod e = 2238) 2.16 RATIO HEMOGLOBIN [id number] 00:00:00* Test Item Value Reference Range Interpretation Comme nts HEMOGLOBIN A1c (test code = 89327) 5.6 % [id number] 00:00:00* Test Item Value Reference Range Interpretation Comme nts TSH, THIRD GENERATION (test code = 2821) 2.690 UIU/ML CBC W/AUTO [id number] 00:00:00* Test Item Value Reference Range Interpretation [...] ABS NUCLEATED RBCS (test cod e = 49822) 0.00 K/UL COMPREHENSIVE METABOLIC [id number] 00:00:00* Test Item Value Reference Range Interpretation Comme nts GLUCOSE (test code = 2217) 91 MG/DL BUN (test code = 2208) 12 MG/DL CREATININE (test code = 2214) 0.62 MG/DL eGFR (2020 CKD-EPI) (test co de = 36426) 93 ML/MIN/1.73 CALC BUN/CREAT (test code = [...] ALT (test code = 2219) 18 U/L Elmer RangelLIPID [id number] 00:00:00* Test Item Value Reference Range Interpretation Comme nts CHOLESTEROL (test code = 2210) 221 MG/DL TRIGLYCERIDES (test code = 2232) 116 MG/DL HDL CHOLESTEROL (test code = 2220) 63 MG/DL CALC LDL CHOL (test code = 2237) 136 MG/DL RISK RATIO LDL/HDL (test cod e = 2238) 2.16 RATIO Elmer RangelHEMOGLOBIN [id number] 00:00:00* Test Item Value Reference Range Interpretation Comme nts HEMOGLOBIN A1c (test code = 25752) 5.6 % Elmer [id number] 00:00:00* Test Item Value Reference Range Interpretation Comme nts TSH, THIRD GENERATION (test code = 2821) 2.690 UIU/ML Elmer RangelTSH, THIRD [id number] 06:24:51* Test Item Value Reference Range Interpretation Comme nts TSH, THIRD GENERATION (test code = 2821) 2.220 UIU/ML 0.400-4.100 UNLESS OTHERWISE INDICATED, ALL TESTING PER[facility]MED [facility] [address] [place] [address] ELECTRIC KNIFE OPERATOR: IGNACIO HANDY M.D. CLIA NUMBER [id number] [facility] [place] [place]. [id number] LIPID [id number] 04:48:27* Test Item Value Reference Range Interpretation [...] SPECIMENS. FOR MOREINFORMATION, SEE CLIENT ANNOUNCEMENT AT [email or web address] /CalcLDL-C RISK RATIO LDL/HDL (test code = 2238) 2.22 RATIO <3.22 HEMOGLOBIN [id number] 04:22:21* Test Item Value Reference Range Interpretation Comme nts HEMOGLOBIN A1c (test code = 89946) 5.8 % 4.2-5.6 H [id number] 00:00:00* Test Item Value Reference Range Interpretation Comme nts TSH, THIRD GENERATION (test code = 2821) 2.220 UIU/ML HEMOGLOBIN [id number] 00:00:00* Test Item Value Reference Range Interpretation Comme nts HEMOGLOBIN A1c (test code = 84991) 5.8 % LIPID [id number] 00:00:00* Test Item Value Reference Range Interpretation Comme nts CHOLESTEROL (test code = 2210) 164 MG/DL TRIGLYCERIDES (test code = 2232) 72 MG/DL HDL CHOLESTEROL (test code = 2220) 46 MG/DL CALC LDL CHOL (test code = 2237) 102 MG/DL RISK RATIO LDL/HDL (test cod e = 2238) 2.22 RATIO Elmer F AustinLIPID [id number] 00:00:00* Test Item Value Reference Range Interpretation Comme nts CHOLESTEROL (test code = 2210) 164 MG/DL TRIGLYCERIDES (test code = 2232) 72 MG/DL HDL CHOLESTEROL (test code = 2220) 46 MG/DL CALC LDL CHOL (test code = 2237) 102 MG/DL RISK RATIO LDL/HDL (test cod e = 2238) 2.22 RATIO [id number] 00:00:00* Test Item Value Reference Range Interpretation Comme nts TSH, THIRD GENERATION (test code = 2821) 2.220 UIU/ML HEMOGLOBIN [id number] 00:00:00* Test Item Value Reference Range Interpretation Comme nts HEMOGLOBIN A1c (test code = 41767) 5.8 % LIPID [id number] 00:00:00* Test Item Value Reference Range Interpretation Comme nts CHOLESTEROL (test code = 2210) 164 MG/DL TRIGLYCERIDES (test code = 2232) 72 MG/DL HDL CHOLESTEROL (test code = 2220) 46 MG/DL CALC LDL CHOL (test code = 2237) 102 MG/DL RISK RATIO LDL/HDL (test cod e = 2238) 2.22 RATIO [id number] 00:00:00* Test Item Value Reference Range Interpretation Comme nts TSH, THIRD GENERATION (test code = 2821) 2.220 UIU/ML HEMOGLOBIN [id number] 00:00:00* Test Item Value Reference Range Interpretation Comme nts HEMOGLOBIN A1c (test code = 18112) 5.8 % LIPID [id number] 00:00:00* Test Item Value Reference Range Interpretation Comme nts CHOLESTEROL (test code = 2210) 164 MG/DL TRIGLYCERIDES (test code = 2232) 72 MG/DL HDL CHOLESTEROL (test code = 2220) 46 MG/DL CALC LDL CHOL (test code = 2237) 102 MG/DL RISK RATIO LDL/HDL (test cod e = 2238) 2.22 RATIO [id number] 00:00:00* Test Item Value Reference Range Interpretation Comme nts TSH, THIRD GENERATION (test code = 2821) 2.220 UIU/ML Elmer Jauregui [place] [id number] 00:00:00* Test Item Value Reference Range Interpretation Comme nts HEMOGLOBIN A1c (test code = 41440) 5.8 % Elmer Jauregui [id number] 00:00:00* Test Item Value Reference Range Interpretation Comme nts TSH, THIRD GENERATION (test code = 2821) 1.620 UIU/ML [id number] 00:00:00* Test Item Value Reference Range Interpretation Comme nts TSH, THIRD GENERATION (test code = 2821) 1.620 UIU/ML [id number] 00:00:00* Test Item Value Reference Range Interpretation Comme nts TSH, THIRD GENERATION (test code = 2821) 1.620 UIU/ML [id number] 00:00:00* Test Item Value Reference Range Interpretation Comme nts TSH, THIRD GENERATION (test code = 2821) 1.620 UIU/ML Elmer Jauregui [place] [id number] 00:00:00* Test Item Value Reference Range Interpretation Comme nts HEMOGLOBIN A1c (test code = 47984) 5.9 % Elmer [id number] 00:00:00* Test Item Value Reference Range Interpretation Comme nts TSH, THIRD GENERATION (test code = 2821) 0.221 UIU/ML HEMOGLOBIN [id number] 00:00:00* Test Item Value Reference Range Interpretation Comme nts HEMOGLOBIN A1c (test code = 51733) 5.9 % LIPID [id number] 00:00:00* Test Item Value Reference Range Interpretation Comme nts CHOLESTEROL (test code = 2210) 172 MG/DL TRIGLYCERIDES (test code = 2232) 177 MG/DL HDL CHOLESTEROL (test code = 2220) 51 MG/DL CALC LDL CHOL (test code = 2237) 94 MG/DL RISK RATIO LDL/HDL (test cod e = 2238) 1.84 RATIO [id number] 00:00:00* Test Item Value Reference Range Interpretation Comme nts TSH, THIRD GENERATION (test code = 2821) 0.221 UIU/ML HEMOGLOBIN [id number] 00:00:00* Test Item Value Reference Range Interpretation Comme nts HEMOGLOBIN A1c (test code = 49054) 5.9 % LIPID [id number] 00:00:00* Test Item Value Reference Range Interpretation Comme nts CHOLESTEROL (test code = 2210) 172 MG/DL TRIGLYCERIDES (test code = 2232) 177 MG/DL HDL CHOLESTEROL (test code = 2220) 51 MG/DL CALC LDL CHOL (test code = 2237) 94 MG/DL RISK RATIO LDL/HDL (test cod e = 2238) 1.84 RATIO [id number] 00:00:00* Test Item Value Reference Range Interpretation Comme nts TSH, THIRD GENERATION (test code = 2821) 0.221 UIU/ML HEMOGLOBIN [id number] 00:00:00* Test Item Value Reference Range Interpretation Comme nts HEMOGLOBIN A1c (test code = 20615) 5.9 % LIPID [id number] 00:00:00* Test Item Value Reference Range Interpretation Comme nts CHOLESTEROL (test code = 2210) 172 MG/DL TRIGLYCERIDES (test code = 2232) 177 MG/DL HDL CHOLESTEROL (test code = 2220) 51 MG/DL CALC LDL CHOL (test code = 2237) 94 MG/DL RISK RATIO LDL/HDL (test cod e = 2238) 1.84 RATIO LIPID [id number] 00:00:00* Test Item Value Reference Range Interpretation Comme nts CHOLESTEROL (test code = 2210) 172 MG/DL TRIGLYCERIDES (test code = 2232) 177 MG/DL HDL CHOLESTEROL (test code = 2220) 51 MG/DL CALC LDL CHOL (test code = 2237) 94 MG/DL RISK RATIO LDL/HDL (test cod e = 2238) 1.84 RATIO Elmer [id number] 00:00:00* Test Item Value Reference Range Interpretation Comme nts TSH, THIRD GENERATION (test code = 2821) 0.221 UIU/ML Elmer Jauregui AustinLIPID [id number] 00:00:00* Test Item Value Reference Range Interpretation Comme nts CHOLESTEROL (test code = 2210) 225 MG/DL TRIGLYCERIDES (test code = 2232) 94 MG/DL HDL CHOLESTEROL (test code = 2220) 51 MG/DL CALC LDL CHOL (test code = 2237) 154 MG/DL RISK RATIO LDL/HDL (test cod e = 2238) 3.02 RATIO COMPREHENSIVE METABOLIC [id number] 00:00:00* Test Item Value Reference Range Interpretation Comme nts GLUCOSE (test code = 2217) 86 MG/DL BUN (test code = 2208) 11 MG/DL CREATININE (test code = 2214) 0.61 MG/DL eGFR AMER. (test cod e = 65876) 104 ML/MIN/1.73 eGFR NON- AMER. (test code = 66641) 89 ML/MIN/1.73 CALC BUN/CREAT (test code = [...] (test code = 2219) 22 U/L LIPID [id number] 00:00:00* Test Item Value Reference Range Interpretation Comme nts CHOLESTEROL (test code = 2210) 225 MG/DL TRIGLYCERIDES (test code = 2232) 94 MG/DL HDL CHOLESTEROL (test code = 2220) 51 MG/DL CALC LDL CHOL (test code = 2237) 154 MG/DL RISK RATIO LDL/HDL (test cod e = 2238) 3.02 RATIO COMPREHENSIVE METABOLIC [id number] 00:00:00* Test Item Value Reference Range Interpretation Comme nts GLUCOSE (test code = 2217) 86 MG/DL BUN (test code = 2208) 11 MG/DL CREATININE (test code = 2214) 0.61 MG/DL eGFR AMER. (test cod e = 47173) 104 ML/MIN/1.73 eGFR NON- AMER. (test code = 99158) 89 ML/MIN/1.73 CALC BUN/CREAT (test code = [...] (test code = 2219) 22 U/L LIPID [id number] 00:00:00* Test Item Value Reference Range Interpretation Comme nts CHOLESTEROL (test code = 2210) 225 MG/DL TRIGLYCERIDES (test code = 2232) 94 MG/DL HDL CHOLESTEROL (test code = 2220) 51 MG/DL CALC LDL CHOL (test code = 2237) 154 MG/DL RISK RATIO LDL/HDL (test cod e = 2238) 3.02 RATIO COMPREHENSIVE METABOLIC [id number] 00:00:00* Test Item Value Reference Range Interpretation Comme nts GLUCOSE (test code = 2217) 86 MG/DL BUN (test code = 2208) 11 MG/DL CREATININE (test code = 2214) 0.61 MG/DL eGFR AMER. (test cod e = 34477) 104 ML/MIN/1.73 eGFR NON- AMER. (test code = 62287) 89 ML/MIN/1.73 CALC BUN/CREAT (test code = [...] code = 2219) 22 U/L COMPREHENSIVE METABOLIC [id number] 00:00:00* Test Item Value Reference Range Interpretation Comme nts GLUCOSE (test code = 2217) 86 MG/DL BUN (test code = 2208) 11 MG/DL CREATININE (test code = 2214) 0.61 MG/DL eGFR AMER. (test cod e = 39892) 104 ML/MIN/1.73 eGFR NON- AMER. (test code = 83395) 89 ML/MIN/1.73 CALC BUN/CREAT (test code = [...] ALT (test code = 2219) 22 U/L Elmer Jauregui AustinLIPID [id number] 00:00:00* Test Item Value Reference Range Interpretation Comme nts CHOLESTEROL (test code = 2210) 225 MG/DL TRIGLYCERIDES (test code = 2232) 94 MG/DL HDL CHOLESTEROL (test code = 2220) 51 MG/DL CALC LDL CHOL (test code = 2237) 154 MG/DL RISK RATIO LDL/HDL (test cod e = 2238) 3.02 RATIO Elmer Jauregui AustinHEMOGLOBIN [id number] 00:00:00* Test Item Value Reference Range Interpretation Comme nts HEMOGLOBIN A1c (test code = 90262) 5.7 % [id number] 00:00:00* Test Item Value Reference Range Interpretation Comme nts TSH, THIRD GENERATION (test code = 2821) 0.696 UIU/ML [id number] 00:00:00* Test Item Value Reference Range Interpretation Comme nts TSH, THIRD GENERATION (test code = 2821) 0.696 UIU/ML Elmer Jauregui AustinHEMOGLOBIN [id number] 00:00:00* Test Item Value Reference Range Interpretation Comme nts HEMOGLOBIN A1c (test code = 90854) 5.7 % [id number] 00:00:00* Test Item Value Reference Range Interpretation Comme nts TSH, THIRD GENERATION (test code = 2821) 0.696 UIU/ML HEMOGLOBIN [id number] 00:00:00* Test Item Value Reference Range Interpretation Comme nts HEMOGLOBIN A1c (test code = 28612) 5.7 % [id number] 00:00:00* Test Item Value Reference Range Interpretation Comme nts TSH, THIRD GENERATION (test code = 2821) 0.696 UIU/ML HEMOGLOBIN [id number] 00:00:00* Test Item Value Reference Range Interpretation Comme nts HEMOGLOBIN A1c (test code = 93842) 5.7 % Elmer RangelCOMPREHENSIVE METABOLIC [id number] 00:00:00* Test Item Value Reference Range Interpretation Comme nts GLUCOSE (test code = 2217) 99 MG/DL BUN (test code = 2208) 14 MG/DL CREATININE (test code = 2214) 0.55 MG/DL eGFR AMER. (test cod e = 37809) 107 ML/MIN/1.73 eGFR NON- AMER. (test code = 33613) 92 ML/MIN/1.73 CALC BUN/CREAT (test code = [...] ALT (test code = 2219) 21 U/L [id number] 00:00:00* Test Item Value Reference Range Interpretation Comme nts TSH, THIRD GENERATION (test code = 2821) 0.109 UIU/ML COMPREHENSIVE METABOLIC [id number] 00:00:00* Test Item Value Reference Range Interpretation Comme nts GLUCOSE (test code = 2217) 99 MG/DL BUN (test code = 2208) 14 MG/DL CREATININE (test code = 2214) 0.55 MG/DL eGFR AMER. (test cod e = 72053) 107 ML/MIN/1.73 eGFR NON- AMER. (test code = 80176) 92 ML/MIN/1.73 CALC BUN/CREAT (test code = [...] ALT (test code = 2219) 21 U/L [id number] 00:00:00* Test Item Value Reference Range Interpretation Comme nts TSH, THIRD GENERATION (test code = 2821) 0.109 UIU/ML COMPREHENSIVE METABOLIC [id number] 00:00:00* Test Item Value Reference Range Interpretation Comme nts GLUCOSE (test code = 2217) 99 MG/DL BUN (test code = 2208) 14 MG/DL CREATININE (test code = 2214) 0.55 MG/DL eGFR AMER. (test cod e = 96572) 107 ML/MIN/1.73 eGFR NON- AMER. (test code = 33706) 92 ML/MIN/1.73 CALC BUN/CREAT (test code = [...] ALT (test code = 2219) 21 U/L [id number] 00:00:00* Test Item Value Reference Range Interpretation Comme nts TSH, THIRD GENERATION (test code = 2821) 0.109 UIU/ML Elmer [id number] 00:00:00* Test Item Value Reference Range Interpretation Comme nts TSH, THIRD GENERATION (test code = 2821) 0.109 UIU/ML COMPREHENSIVE METABOLIC [id number] 00:00:00* Test Item Value Reference Range Interpretation Comme nts GLUCOSE (test code = 2217) 99 MG/DL BUN (test code = 2208) 14 MG/DL CREATININE (test code = 2214) 0.55 MG/DL eGFR AMER. (test cod e = 70686) 107 ML/MIN/1.73 eGFR NON- AMER. (test code = 55394) 92 ML/MIN/1.73 CALC BUN/CREAT (test code = [...] ALT (test code = 2219) 21 U/L Elmer [id number] 00:00:00* Test Item Value Reference Range Interpretation Comme nts TSH, THIRD GENERATION (test code = 2821) 0.669 UIU/ML HEMOGLOBIN [id number] 00:00:00* Test Item Value Reference Range Interpretation Comme nts HEMOGLOBIN A1c (test code = 61354) 5.8 % LIPID [id number] 00:00:00* Test Item Value Reference Range Interpretation Comme nts CHOLESTEROL (test code = 2210) 177 MG/DL TRIGLYCERIDES (test code = 2232) 231 MG/DL HDL CHOLESTEROL (test code = 2220) 54 MG/DL CALC LDL CHOL (test code = 2237) 91 MG/DL RISK RATIO LDL/HDL (test cod e = 2238) 1.69 RATIO COMPREHENSIVE METABOLIC [id number] 00:00:00* Test Item Value Reference Range Interpretation Comme nts GLUCOSE (test code = 2217) 92 MG/DL BUN (test code = 2208) 17 MG/DL CREATININE (test code = 2214) 0.71 MG/DL eGFR AMER. (test cod e = 26231) 98 ML/MIN/1.73 eGFR NON- AMER. (test code = 14029) 84 ML/MIN/1.73 CALC BUN/CREAT (test code = [...] ALT (test code = 2219) 19 U/L [id number] 00:00:00* Test Item Value Reference Range Interpretation Comme nts TSH, THIRD GENERATION (test code = 2821) 0.669 UIU/ML HEMOGLOBIN [id number] 00:00:00* Test Item Value Reference Range Interpretation Comme nts HEMOGLOBIN A1c (test code = 61331) 5.8 % LIPID [id number] 00:00:00* Test Item Value Reference Range Interpretation Comme nts CHOLESTEROL (test code = 2210) 177 MG/DL TRIGLYCERIDES (test code = 2232) 231 MG/DL HDL CHOLESTEROL (test code = 2220) 54 MG/DL CALC LDL CHOL (test code = 2237) 91 MG/DL RISK RATIO LDL/HDL (test cod e = 2238) 1.69 RATIO COMPREHENSIVE METABOLIC [id number] 00:00:00* Test Item Value Reference Range Interpretation Comme nts GLUCOSE (test code = 2217) 92 MG/DL BUN (test code = 2208) 17 MG/DL CREATININE (test code = 2214) 0.71 MG/DL eGFR AMER. (test cod e = 95460) 98 ML/MIN/1.73 eGFR NON- AMER. (test code = 58347) 84 ML/MIN/1.73 CALC BUN/CREAT (test code = [...] ALT (test code = 2219) 19 U/L [id number] 00:00:00* Test Item Value Reference Range Interpretation Comme nts TSH, THIRD GENERATION (test code = 2821) 0.669 UIU/ML HEMOGLOBIN [id number] 00:00:00* Test Item Value Reference Range Interpretation Comme nts HEMOGLOBIN A1c (test code = 66135) 5.8 % LIPID [id number] 00:00:00* Test Item Value Reference Range Interpretation Comme nts CHOLESTEROL (test code = 2210) 177 MG/DL TRIGLYCERIDES (test code = 2232) 231 MG/DL HDL CHOLESTEROL (test code = 2220) 54 MG/DL CALC LDL CHOL (test code = 2237) 91 MG/DL RISK RATIO LDL/HDL (test cod e = 2238) 1.69 RATIO COMPREHENSIVE METABOLIC [id number] 00:00:00* Test Item Value Reference Range Interpretation Comme nts GLUCOSE (test code = 2217) 92 MG/DL BUN (test code = 2208) 17 MG/DL CREATININE (test code = 2214) 0.71 MG/DL eGFR AMER. (test cod e = 62383) 98 ML/MIN/1.73 eGFR NON- AMER. (test code = 51308) 84 ML/MIN/1.73 CALC BUN/CREAT (test code = [...] ALT (test code = 2219) 19 U/L LIPID [id number] 00:00:00* Test Item Value Reference Range Interpretation Comme nts CHOLESTEROL (test code = 2210) 177 MG/DL TRIGLYCERIDES (test code = 2232) 231 MG/DL HDL CHOLESTEROL (test code = 2220) 54 MG/DL CALC LDL CHOL (test code = 2237) 91 MG/DL RISK RATIO LDL/HDL (test cod e = 2238) 1.69 RATIO Elmer F AustinCOMPREHENSIVE METABOLIC [id number] 00:00:00* Test Item Value Reference Range Interpretation Comme nts GLUCOSE (test code = 2217) 92 MG/DL BUN (test code = 2208) 17 MG/DL CREATININE (test code = 2214) 0.71 MG/DL eGFR AMER. (test cod e = 81046) 98 ML/MIN/1.73 eGFR NON- AMER. (test code = 35967) 84 ML/MIN/1.73 CALC BUN/CREAT (test code = [...] ALT (test code = 2219) 19 U/L Elmer [id number] 00:00:00* Test Item Value Reference Range Interpretation Comme nts TSH, THIRD GENERATION (test code = 2821) 0.669 UIU/ML Elmer RangelHEMOGLOBIN [id number] 00:00:00* Test Item Value Reference Range Interpretation Comme nts HEMOGLOBIN A1c (test code = 00409) 5.8 % Elmer Jauregui [id number] 00:00:00* Test Item Value Reference Range Interpretation Comme nts TSH, THIRD GENERATION (test code = 2821) 1.060 UIU/ML Elmer Jauergui AustinHEMOGLOBIN [id number] 00:00:00* Test Item Value Reference Range Interpretation Comme nts HEMOGLOBIN A1c (test code = 58466) 5.8 % [id number] 00:00:00* Test Item Value Reference Range Interpretation Comme nts TSH, THIRD GENERATION (test code = 2821) 1.060 UIU/ML LIPID [id number] 00:00:00* Test Item Value Reference Range Interpretation Comme nts CHOLESTEROL (test code = 2210) 184 MG/DL TRIGLYCERIDES (test code = 2232) 114 MG/DL HDL CHOLESTEROL (test code = 2220) 59 MG/DL CALC LDL CHOL (test code = 2237) 102 MG/DL RISK RATIO LDL/HDL (test cod e = 2238) 1.73 RATIO HEMOGLOBIN [id number] 00:00:00* Test Item Value Reference Range Interpretation Comme nts HEMOGLOBIN A1c (test code = 47049) 5.8 % LIPID [id number] 00:00:00* Test Item Value Reference Range Interpretation Comme nts CHOLESTEROL (test code = 2210) 184 MG/DL TRIGLYCERIDES (test code = 2232) 114 MG/DL HDL CHOLESTEROL (test code = 2220) 59 MG/DL CALC LDL CHOL (test code = 2237) 102 MG/DL RISK RATIO LDL/HDL (test cod e = 2238) 1.73 RATIO Elmer Jauregui [id number] 00:00:00* Test Item Value Reference Range Interpretation Comme nts TSH, THIRD GENERATION (test code = 2821) 1.060 UIU/ML LIPID [id number] 00:00:00* Test Item Value Reference Range Interpretation Comme nts CHOLESTEROL (test code = 2210) 184 MG/DL TRIGLYCERIDES (test code = 2232) 114 MG/DL HDL CHOLESTEROL (test code = 2220) 59 MG/DL CALC LDL CHOL (test code = 2237) 102 MG/DL RISK RATIO LDL/HDL (test cod e = 2238) 1.73 RATIO HEMOGLOBIN [id number] 00:00:00* Test Item Value Reference Range Interpretation Comme nts HEMOGLOBIN A1c (test code = 19901) 5.8 % [id number] 00:00:00* Test Item Value Reference Range Interpretation Comme nts TSH, THIRD GENERATION (test code = 2821) 1.060 UIU/ML LIPID [id number] 00:00:00* Test Item Value Reference Range Interpretation Comme nts CHOLESTEROL (test code = 2210) 184 MG/DL TRIGLYCERIDES (test code = 2232) 114 MG/DL HDL CHOLESTEROL (test code = 2220) 59 MG/DL CALC LDL CHOL (test code = 2237) 102 MG/DL RISK RATIO LDL/HDL (test cod e = 2238) 1.73 RATIO HEMOGLOBIN [id number] 00:00:00* Test Item Value Reference Range Interpretation Comme nts HEMOGLOBIN A1c (test code = 66886) 5.8 % Elmer Jauregui [id number] 00:00:00* Test Item Value Reference Range Interpretation Comme nts TSH, THIRD GENERATION (test code = 2821) 0.730 UIU/ML Elmer [id number] 00:00:00* Test Item Value Reference Range Interpretation [...] (test cod e = 2238) 1.90 RATIO [id number] 00:00:00* Test Item Value Reference Range Interpretation [...] (test cod e = 2238) 1.90 RATIO [id number] 00:00:00* Test Item Value Reference Range Interpretation [...] (test cod e = 2238) 1.90 RATIO Elmer RangelLIPID PANEL [ADDED]2019-05-11 00:00:00* Test Item Value Reference Range Interpretation Comme nts CHOLESTEROL (test code = 2210) 212 MG/DL TRIGLYCERIDES (test code = 2232) 119 MG/DL HDL CHOLESTEROL (test code = 2220) 65 MG/DL CALC LDL CHOL (test code = 2237) 123 MG/DL RISK RATIO LDL/HDL (test cod e = 2238) 1.90 RATIO LIPID [id number] 00:00:00* Test Item Value Reference Range Interpretation Comme nts CHOLESTEROL (test code = 2210) 224 MG/DL TRIGLYCERIDES (test code = 2232) 93 MG/DL HDL CHOLESTEROL (test code = 2220) 62 MG/DL CALC LDL CHOL (test code = 2237) 143 MG/DL RISK RATIO LDL/HDL (test cod e = 2238) 2.31 RATIO Elmer RangelLIPID [id number] 00:00:00* Test Item Value Reference Range Interpretation Comme nts CHOLESTEROL (test code = 2210) 224 MG/DL TRIGLYCERIDES (test code = 2232) 93 MG/DL HDL CHOLESTEROL (test code = 2220) 62 MG/DL CALC LDL CHOL (test code = 2237) 143 MG/DL RISK RATIO LDL/HDL (test cod e = 2238) 2.31 RATIO [id number] 00:00:00* Test Item Value Reference Range Interpretation Comme nts TSH, THIRD GENERATION (test code = 2821) 1.800 UIU/ML [id number] 00:00:00* Test Item Value Reference Range Interpretation Comme nts TSH, THIRD GENERATION (test code = 2821) 1.800 UIU/ML Elmer RangelLIPID [id number] 00:00:00* Test Item Value Reference Range Interpretation Comme nts CHOLESTEROL (test code = 2210) 224 MG/DL TRIGLYCERIDES (test code = 2232) 93 MG/DL HDL CHOLESTEROL (test code = 2220) 62 MG/DL CALC LDL CHOL (test code = 2237) 143 MG/DL RISK RATIO LDL/HDL (test cod e = 2238) 2.31 RATIO [id number] 00:00:00* Test Item Value Reference Range Interpretation Comme nts TSH, THIRD GENERATION (test code = 2821) 1.800 UIU/ML LIPID [id number] 00:00:00* Test Item Value Reference Range Interpretation Comme nts CHOLESTEROL (test code = 2210) 224 MG/DL TRIGLYCERIDES (test code = 2232) 93 MG/DL HDL CHOLESTEROL (test code = 2220) 62 MG/DL CALC LDL CHOL (test code = 2237) 143 MG/DL RISK RATIO LDL/HDL (test cod e = 2238) 2.31 RATIO [id number] 00:00:00* Test Item Value Reference Range Interpretation Comme nts TSH, THIRD GENERATION (test code = 2821) 1.800 UIU/ML [id number] 00:00:00* Test Item Value Reference Range Interpretation [...] (test cod e = 2238) 1.21 RATIO [id number] 00:00:00* Test Item Value Reference Range Interpretation [...] (test cod e = 2238) 1.21 RATIO Elmer Juventino AustinLIPID PANEL [ADDED]2018-12-21 00:00:00* Test Item Value Reference Range Interpretation Comme nts CHOLESTEROL (test code = 2210) 149 MG/DL TRIGLYCERIDES (test code = 2232) 71 MG/DL HDL CHOLESTEROL (test code = 2220) 61 MG/DL CALC LDL CHOL (test code = 2237) 74 MG/DL RISK RATIO LDL/HDL (test cod e = 2238) 1.21 RATIO [id number] 00:00:00* Test Item Value Reference Range Interpretation [...] (test cod e = 2238) 1.21 RATIO [id number] 00:00:00* Test Item Value Reference Range Interpretation Comme nts TSH, THIRD GENERATION (test code = 2821) 4.790 UIU/ML Elmer F AustinHEMOGLOBIN [id number] 00:00:00* Test Item Value Reference Range Interpretation Comme nts HEMOGLOBIN A1c (test code = 02026) 5.6 % [id number] 00:00:00* Test Item Value Reference Range Interpretation Comme nts TSH, THIRD GENERATION (test code = 2821) 0.443 UIU/ML ACUTE HEPATITIS [id number] 00:00:00* Test Item Value Reference Range Interpretation Comme nts HEPATITIS A IgM (test code = 17885) NON-REACTIVE HEPATITIS B CORE IgM (test c ode = 4644) NON-REACTIVE HEPATITIS B SURF AG (test co de = 2739) NON-REACTIVE HEPATITIS C ANTIBODY (test c ode = 4675) NON-REACTIVE INTERPRETATION HEPATITIS A: (test code = 2552) (NOTE) INTERPRETATION HEPATITIS B: (test code = 01602) (NOTE) INTERPRETATION HEPATITIS C: (test code = 81141) (NOTE) COMPREHENSIVE METABOLIC [id number] 00:00:00* Test Item Value Reference Range Interpretation Comme nts GLUCOSE (test code = 2217) 96 MG/DL BUN (test code = 2208) 12 MG/DL CREATININE (test code = 2214) 0.56 MG/DL eGFR AMER. (test cod e = 52898) 109 ML/MIN/1.73 eGFR NON- AMER. (test code = 73917) 94 ML/MIN/1.73 CALC BUN/CREAT (test code = [...] (test code = 2219) 17 U/L LIPID [id number] 00:00:00* Test Item Value Reference Range Interpretation Comme nts CHOLESTEROL (test code = 2210) 192 MG/DL TRIGLYCERIDES (test code = 2232) 101 MG/DL HDL CHOLESTEROL (test code = 2220) 65 MG/DL CALC LDL CHOL (test code = 2237) 107 MG/DL RISK RATIO LDL/HDL (test cod e = 2238) 1.64 RATIO HEMOGLOBIN [id number] 00:00:00* Test Item Value Reference Range Interpretation Comme nts HEMOGLOBIN A1c (test code = 09674) 5.6 % [id number] 00:00:00* Test Item Value Reference Range Interpretation Comme nts TSH, THIRD GENERATION (test code = 2821) 0.443 UIU/ML ACUTE HEPATITIS [id number] 00:00:00* Test Item Value Reference Range Interpretation Comme nts HEPATITIS A IgM (test code = 96519) NON-REACTIVE HEPATITIS B CORE IgM (test c ode = 4644) NON-REACTIVE HEPATITIS B SURF AG (test co de = 2739) NON-REACTIVE HEPATITIS C ANTIBODY (test c ode = 4691) NON-REACTIVE INTERPRETATION HEPATITIS A: (test code = 2552) (NOTE) INTERPRETATION HEPATITIS B: (test code = 70352) (NOTE) INTERPRETATION HEPATITIS C: (test code = 49029) (NOTE) COMPREHENSIVE METABOLIC [id number] 00:00:00* Test Item Value Reference Range Interpretation Comme nts GLUCOSE (test code = 2217) 96 MG/DL BUN (test code = 2208) 12 MG/DL CREATININE (test code = 2214) 0.56 MG/DL eGFR AMER. (test cod e = 06826) 109 ML/MIN/1.73 eGFR NON- AMER. (test code = 62950) 94 ML/MIN/1.73 CALC BUN/CREAT (test code = [...] (test code = 2219) 17 U/L LIPID [id number] 00:00:00* Test Item Value Reference Range Interpretation Comme nts CHOLESTEROL (test code = 2210) 192 MG/DL TRIGLYCERIDES (test code = 2232) 101 MG/DL HDL CHOLESTEROL (test code = 2220) 65 MG/DL CALC LDL CHOL (test code = 2237) 107 MG/DL RISK RATIO LDL/HDL (test cod e = 2238) 1.64 RATIO HEMOGLOBIN [id number] 00:00:00* Test Item Value Reference Range Interpretation Comme nts HEMOGLOBIN A1c (test code = 08966) 5.6 % [id number] 00:00:00* Test Item Value Reference Range Interpretation Comme nts TSH, THIRD GENERATION (test code = 2821) 0.443 UIU/ML ACUTE HEPATITIS [id number] 00:00:00* Test Item Value Reference Range Interpretation Comme nts HEPATITIS A IgM (test code = 96183) NON-REACTIVE HEPATITIS B CORE IgM (test c ode = 4644) NON-REACTIVE HEPATITIS B SURF AG (test co de = 2739) NON-REACTIVE HEPATITIS C ANTIBODY (test c ode = 4638) NON-REACTIVE INTERPRETATION HEPATITIS A: (test code = 2552) (NOTE) INTERPRETATION HEPATITIS B: (test code = 41658) (NOTE) INTERPRETATION HEPATITIS C: (test code = 95589) (NOTE) COMPREHENSIVE METABOLIC [id number] 00:00:00* Test Item Value Reference Range Interpretation Comme nts GLUCOSE (test code = 2217) 96 MG/DL BUN (test code = 2208) 12 MG/DL CREATININE (test code = 2214) 0.56 MG/DL eGFR AMER. (test cod e = 03532) 109 ML/MIN/1.73 eGFR NON- AMER. (test code = 80940) 94 ML/MIN/1.73 CALC BUN/CREAT (test code = [...] (test code = 2219) 17 U/L LIPID [id number] 00:00:00* Test Item Value Reference Range Interpretation Comme nts CHOLESTEROL (test code = 2210) 192 MG/DL TRIGLYCERIDES (test code = 2232) 101 MG/DL HDL CHOLESTEROL (test code = 2220) 65 MG/DL CALC LDL CHOL (test code = 2237) 107 MG/DL RISK RATIO LDL/HDL (test cod e = 2238) 1.64 RATIO LIPID [id number] 00:00:00* Test Item Value Reference Range Interpretation Comme nts CHOLESTEROL (test code = 2210) 192 MG/DL TRIGLYCERIDES (test code = 2232) 101 MG/DL HDL CHOLESTEROL (test code = 2220) 65 MG/DL CALC LDL CHOL (test code = 2237) 107 MG/DL RISK RATIO LDL/HDL (test cod e = 2238) 1.64 RATIO Elmer Jauregui AustinHEMOGLOBIN [id number] 00:00:00* Test Item Value Reference Range Interpretation Comme nts HEMOGLOBIN A1c (test code = 41058) 5.6 % Elmer [id number] 00:00:00* Test Item Value Reference Range Interpretation Comme nts TSH, THIRD GENERATION (test code = 2821) 0.443 UIU/ML Elmer RangelACUTE HEPATITIS [id number] 00:00:00* Test Item Value Reference Range Interpretation Comme nts HEPATITIS A IgM (test code = 62386) NON-REACTIVE HEPATITIS B CORE IgM (test c ode = 4644) NON-REACTIVE HEPATITIS B SURF AG (test co de = 2739) NON-REACTIVE HEPATITIS C ANTIBODY (test c ode = 4675) NON-REACTIVE INTERPRETATION HEPATITIS A: (test code = 2552) (NOTE) INTERPRETATION HEPATITIS B: (test code = 35513) (NOTE) INTERPRETATION HEPATITIS C: (test code = 33699) (NOTE) Elmer RangelCOMPREHENSIVE METABOLIC [id number] 00:00:00* Test Item Value Reference Range Interpretation Comme nts GLUCOSE (test code = 2217) 96 MG/DL BUN (test code = 2208) 12 MG/DL CREATININE (test code = 2214) 0.56 MG/DL eGFR AMER. (test cod e = 83441) 109 ML/MIN/1.73 eGFR NON- AMER. (test code = 41938) 94 ML/MIN/1.73 CALC BUN/CREAT (test code = [...] ALT (test code = 2219) 17 U/L Elmer Rangel Notes Date/Time Note Provider Source Elmer Rangel [facility]
[2025-05-09] MEDS ORDERED: KETOROLAC 30 MG/ML INJ ONE (11:53)
[2025-05-09] MEDS ORDERED: ONDANSETRON 4 MG/2 ML VIAL ONE (11:53)
[2025-05-09] MEDS ORDERED: NA CHLORIDE 0.9% 1,000 ML ONE (11:54)
[2025-05-09 12:34] LABS: Absolute Lymphocytes (CBC) 1.7 K/uL (0.7-4.9); Hematocrit 39.4 % (36.0-45.0); Hemoglobin 13.2 g/dL (12.0-15.0); MCH 28.6 pg (27.0-35.0); MCHC 33.4 g/dL (32.0-36.0); MCV 85.6 fL (80-100); MPV 9.0 fL (7.6-11.3); Nucleated RBC Absolute Count 0.0 (0-0); Nucleated Red Blood Cells % 0.1 % (0-0); RBC Red Blood Cell Count 4.60 M/uL (3.86-4.86); White Blood Count 6.20 thou/uL (4.3-10.9)
--- NOTE | 2025-05-09 12:36 | RAD REPORT ---
EXAMINATION: Head C Spine Mpr Wo Con CLINICAL INDICATION: Female, 79 years old. TRAUMA TECHNIQUE: Axial CT images from the skull base to the vertex without intravenous contrast. Axial CT i mages through the cervical spine were obtained without intravenous contrast. Sagittal and coronal reformatted images were created from the data set. Coronal and sagittal reformatted images were creat ed from the data set. One or more of the following dose reduction techniques were used: Automated exposure control, adjustment of the mA and/or kV according to patient size, and/or iterative reconstr uction. Unless otherwise specified, incidental findings do not require dedicated imaging follow-up. [id number]. COMPARISON: No prior exams FINDINGS: Head: INTRACRANIAL: No acute intracranial hemorrhage. No acute large vascular territory infarct. No hydroce phalus. No mass effect or midline shift. No significant white matter disease. VASCULATURE: No visualized abnormalities in the arteries or dural venous sinuses. SCALP/SKULL: No calvarial fracture identified. No acute soft tissue abnormality. SINUSES: The visualized paranasal sinuses are mostly clear. No significant mastoid fluid. Cervical spine: ALIGNMENT: Trace anterolisthesis of C3 on C4 and C4 on C5 is unchanged. BONE: Vertebral body heights are maintained. No aggressive osseous lesions. Chronic endplate cavities throughout the cervical spine. DEGENERATIVE: No significant focal degenerative changes. SOFT TISSUE: No significant abnormalities in the soft tissue of the neck. The visualized lung apices are clear. IMPRESSION: No acute intracranial abnormality. No acute fracture or traumatic malalignment of the cervical spine.
[2025-05-09 12:52] LABS: ALT/SGPT 24.0 U/L (13-56); AST/SGOT 16.0 U/L (15-37); Albumin 3.5 g/dL (3.4-5.0); Albumin/Globulin Ratio 0.9 (1.1-1.8); Alkaline Phosphatase 69.0 U/L (45-117); Anion Gap 9.8 mEq/L (5.0-15.0); BUN Blood Urea Nitrogen 15.0 mg/dL (7-18); Globulin 3.7 g/dL (2.3-3.5); Glucose Level 101.0 mg/dL (74-106); Potassium 3.8 mEq/L (3.5-5.1)
[2025-05-09 12:58] LABS: Influenza A Ag Negative; Influenza B Ag Negative; SARS-CoV-2 Antigen Rapid Res Negative (Negative)
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
[2025-05-09 17:14] VITALS: BP 131/71; TEMP 97.2; O2SAT 98
== END 2025-05-09 15:15 | disposition home or self-care (01) ==
LOC: ER 11:24
DX: R52 Pain, unspecified (principal); R53.83 Other fatigue; V49.59XA Passenger injured in collision with other motor vehicles in traffic accident, initial encounter; Z11.52 Encounter for screening for COVID-19
CPT/HCPCS: 36415; 70450; 72125; 80053; 85025; 87428; 96361; 96374; 96375; 99284; J2405; J7030